=== PATIENT | male | born 1935 | race Caucasian/White ===

== ENCOUNTER → 2017-11-04 08:16 | Outpatient (CLI) | payer MEDICARE, OTHER, SELFPAY ==
[2017-11-04 08:59] LABS: Hemoglobin A1C% w Est Avg Glu 6.2 % (4.0-6.0)
[2017-11-04 09:00] LABS: Add Manual Diff / Slide Review NO; Basophils Percent Auto 2.8 % (0-2); Eosinophils Percent Auto 3.7 % (2-4); Hematocrit 42.1 % (41-53); Hemoglobin 14.2 g/dL (13.5-17.5); Lymphocytes Percent Auto 33.3 % (25-40); Mean Corpuscular HGB Conc 33.6 % (30-36); Mean Corpuscular Volume 89.2 fL (80-100); Monocytes Percent Auto 11.7 % (3-14); Neutrophils Absolute Auto 2000 /uL (3000-5900); Neutrophils Percent Auto 48.5 % (50-75); Platelet Count 193 X10^3/uL (150-400); Red Blood Cell Count 4.72 X10^6/uL (4.5-5.9); White Blood Cell Count 4.2 X10^3/uL (4.5-11.0)
[2017-11-04 09:09] LABS: Alanine Aminotransferase 34 IU/L (21-72); Albumin 4.4 g/dL (3.5-5.0); Albumin Globulin Ratio 1.3 (1.0-2.8); Alkaline Phosphatase 59 U/L (38-126); Aspartate Aminotransferase 35 IU/L (17-59); Bilirubin Total 0.5 mg/dL (0.2-1.3); Blood Urea Nitrogen 22 mg/dL (9-20); Calcium 9.3 mg/dL (8.4-10.2); Carbon Dioxide 27 mmol/L (22-32); Chloride 102 mmol/L (98-107); Cholesterol 133 mg/dL (140-199); Estimated Glomerular Filt Rate > 60.0 mL/min (>60); Globulin 3.4 g/dL (1.7-4.1); Glucose 120 mg/dL (80-110); HDL Cholesterol 62 mg/dL (40-60); HEMOLYSIS < 15 (0-50); LDL Cholesterol Calculated 54 mg/dL (<100); Potassium 4.2 mmol/L (3.4-5.1); Sodium 141 mmol/L (137-145); Total Protein 7.8 g/dL (6.3-8.2); Triglycerides 87 mg/dL (35-150)
== END ==
PROVIDERS: PCP Internal Medicine; Visit Provider Internal Medicine
DX: I48.91 Unspecified atrial fibrillation (principal); E78.00 Pure hypercholesterolemia, unspecified; I10 Essential (primary) hypertension; R73.01 Impaired fasting glucose
CPT/HCPCS: 36415; 80053; 80061; 83036; 85025

== ENCOUNTER 2018-01-23 10:30 | Outpatient (RCR) | payer MEDICARE, OTHER, SELFPAY ==
--- NOTE | 2017-09-20 13:17 | PT.OIE ---
Current Diagnoses Primary osteoarthritis, left shoulder (09/19/17) Muscle wasting and atrophy, not elsewhere classified, left shoulder (09/19/17) Other reduced mobility (09/19/17) Past Medical History (Last Updated 09/20/17 @ 13:13 by Georgie Mccarty, PT) Back pain (Acute) Falls (Acute) Hearing decreased (Acute) Neuropathy (Acute) Past Surgical History (Last Updated 09/20/17 @ 13:12 by Georgie Mccarty, PT) S/P shoulder replacement (Acute) Physical Therapy Initial Evaluation PT-OP-A Visit Information Start: 09/19/17 15:44 Freq: Status: Active Protocol: Activity Type Activity Date Activity User E-Sign Co-Sign Detail Recorded Client Recorded Date Recorded By Document 09/19/17 10:40 LRN [id number] 09/19/17 16:15 LRN 09/19/17 10:40 Out-Patient Physical Therapy Visit Information [Visit Information] -Visit Type Treatment Note -Visit Start Time 10:37 -Visit Stop Time 11:25 -Total Visit Minutes 58 -Visit Number 1 -Number of WOOL PULLER Visits 0 [Evaluation Information] -Evaluation Date 09/19/17 PT-OP-C Subjective Start: 09/19/17 15:44 Freq: Status: Active Protocol: Activity Type Activity Date Activity User E-Sign Co-Sign Detail Recorded Client Recorded Date Recorded By Document 09/19/17 10:40 LRN [id number] 09/20/17 10:23 LRN 09/19/17 10:40 OP-PT Subjective [Patient Comments] -Patient Comments Doesn't really have pain, 4/10 with movement 8/10. at rest. Pain with movement Patient Questionnaires [Quick Dash- Upper Extremity] -Quick Dash UE Score 79.54 -Quick Dash UE Impairment 80 to 99% Impaired (Score 80-99) OP-PT Pain Assessment [Pain Assessment Grid] -Paper Pain Assessment Grid Completed Yes [Location] Left Shoulder -Intensity 4 -Scale Used Numeric (1 - 10 ) -Pain Aggravating Factors Changing Position -Patient Stated Pain Goal Regain use of arm PT-OP-J Posture/Palpation/Skin Start: 09/19/17 15:44 Freq: Status: Active Protocol: Activity Type Activity Date Activity User E-Sign Co-Sign Detail Recorded Client Recorded Date Recorded By Document 09/20/17 10:24 LRN [id number] 09/20/17 10:28 LRN 09/20/17 10:24 Posture Evaluation [Position] Sitting -Evaluation View Anterior -Head/C-Spine Posture Neutral Position -Scapula Posture (L) Depressed [Comments] -Posture Comments Sitting: Pt sits slumped with straightened thoracic spine. L scapula is tightly bound to the ribcage. There is a moderate Dowager's hump. Moderate forward head. Standing: hips flexed ~10 deg' s. Palpation Assessment [Location] Three -Palpation Location Posterior L shoulder -Palpation Findings Tenderness Two -Palpation Location Upper shoulder -Palpation Findings Muscle Guarding One -Palpation Location L side neck -Palpation Findings Muscle Guarding Skin Assessment [Incisional Assessment] -Incision Appearance/Comments Unable to assess. Scar covered with waterproof bandage ( Aquacil). PT-OP-K Range of Motion Start: 09/19/17 15:44 Freq: Status: Active Protocol: Activity Type Activity Date Activity User E-Sign Co-Sign Detail Recorded Client Recorded Date Recorded By Document 09/19/17 10:40 LRN [id number] 09/20/17 12:21 LRN 09/19/17 10:40 Cervical Spine Range of Motion [Cervical Spine] Active -Testing Position Sitting -Comments WFL's. Shoulder Goniometric Range of Motion [Shoulder] Measured in Degrees Left -Testing Position Supine -Flexion 20 [ROM Limitations] -Comments Shoulder PROM: ER at 0 deg's AB: Lacking 10 deg's left. Elbow/Forearm Range of Motion [Elbow/Forearm] Measured in Degrees Right Active -Elbow/Forearm ROM WFL Yes -ROM Testing Position Supine -Elbow Flex AROM (degrees) 147 -Elbow Ext AROM (degrees) 0 Left Active -ROM Testing Position Supine -Elbow Flex AROM (degrees) 147 -Elbow Ext AROM (degrees) Lacks 10 deg's PT-OP-Q Treatments Start: 09/19/17 15:44 Freq: Status: Active Protocol: Activity Type Activity Date Activity User E-Sign Co-Sign Detail Recorded Client Recorded Date Recorded By Document 09/19/17 10:40 LRN [id number] 09/20/17 12:21 LRN 09/19/17 10:40 Therapeutic Exercises [Supine Exercises] 2 -Supine Exercise Name Passive L shoulder ER with 0 deg's AB -Side left -Reps/Minutes 4 min -Comments Good tolerance, pt is stoic 1 -Supine Exercise Name Passive L shoulder flex -Side left -Reps/Minutes 4 min -Comments Good tolerance, pt is stoic [Sitting Exercises] 1 -Sitting Exercise Name Wrist/Hand AROM -Side left -Reps/Minutes 5 reps each Self-Care/Home Management Treatment [Education] -Patient Education Joint Protection -Caregiver Education PROM for shoulder flexion and ER (at 0 deg's AB) with proper hand hold, positioning of pt and observation of pt tolerance. PT-OP-R Modalities Start: 09/19/17 15:44 Freq: Status: Active Protocol: Activity Type Activity Date Activity User E-Sign Co-Sign Detail Recorded Client Recorded Date Recorded By Document 09/19/17 10:40 LRN [id number] 09/20/17 12:21 LRN 09/19/17 10:40 Hot Pack/Cold Pack [Treatment] Cold Pack -Location L shoulder -Patient Position Supine -Treatment Duration (minutes) 10 -Patient Tolerance Good PT-OP-T Assessment and Plan Start: 09/19/17 15:44 Freq: Status: Active Protocol: Activity Type Activity Date Activity User E-Sign Co-Sign Detail Recorded Client Recorded Date Recorded By Document 09/19/17 10:40 LRN [id number] 09/19/17 15:59 LRN 09/19/17 10:40 Physical Therapy Assessment [Rehab Potential] -Rehabilitation Potential Excellent [Evaluation Complexity] -Number of Personal Factors/ 1-2 Comorbidities -Number of Body Systems Impaired 3 -Clinical Presentation at Evaluation Evolving [Impairments] -Impairments Activity Tolerance Pain Posture ROM Soft Tissue Mobility Strength -Other Impairments S/P surgery in Acute stage of healing. [Other Concerns] -Age Related Concerns Needs assist with ex's, hearing difficulty, pictures with exercises. -Barriers to Rehabilitation 65+ Age [Goals] Eight -Impairment Lacks approriate HEP -Casting And Locker Room Servicer Goal (LTG) Pt will be independent in a HEP -LTG Duration 12 weeks Six -Impairment Decreased function -Group Home Goal (LTG) UE QuickDASH Score no more than 20% impairment. -LTG Duration 12 weeks. Five -Impairment Decreased functional use of L shoulder -Casting And Locker Room Servicer Goal (LTG) Per protocol: Start scapulothoracic rhythmic strengthening/ stabilization & alternating isometrics in supine for pt to begin use of hand for feeding and light activities of ADL's (dressing , washing). Four -Impairment No ROM of L shoulder IR -Group Home Goal (LTG) Per protocol: Initiate PROM of IR for L shoulder not to exceed 50 deg' s. Start ER/IR isometrics ( submaximal & painfree) -LTG Duration Start in 6 weeks. Three -Impairment Decreased L shoulder strength -Short Term Goal (STG) Per protocol: Pt able to tolerate submaximal pain -free Deltoid isometrics in scapular plane (no ext) with HEP -STG Duration 3 weeks Two -Impairment Decreased L shoulder AROM -Short Term Goal (STG) Goals to be set once pt is cleared for AROM. -STG Duration Set in ~6 weeks One -Impairment Decreased L shoulder PROM. Pt to be in sling 6-8 wks. -Short Term Goal (STG) Per protocol: FF 90 deg's, ER 20 deg's, NO IR. -STG Duration 3 weeks s/p surgery on 09/12 -Casting And Locker Room Servicer Goal (LTG) Per protocol: FF 120 deg's, ER to tolerance , respecting soft tissue contraints -LTG Duration 6 weeks s/p surgery on 09/12 [Assessment Summary] -Assessment Pt is 7 days post operative L total shoulder arthroplasty ( TSA). His condition is consistent with acute symptoms of post surgical L shoulder TSA with decreased PROM, restricted AAROM per protocol until 6-8 weeks post op, decreased UE functional strength with mild increased swelling in the hand, decreased soft tissue mobility and increased muscle tone due to muscle guarding, and decreased function with movement restrictions. The pt's spouse is very supportive and willing to assist the pt with PROM ex's at home; therefore we will see the pt once a week for advancement of his HEP and increase to 2x /week one the pt is progressed to AAROM ex's. Aquatic therapy will be appropriate for the pt once his incision has well healed . Physical Therapy Plan [Frequency and Duration] -Frequency of Treatment 2x/Week -Duration of Treatment 12 Weeks -Plan of Care Start Date 09/19/17 -Plan of Care End Date 12/12/17 [Therapeutic Interventions] -Therapeutic Interventions Aquatic Therapy Home Exercise Program Manual Therapy Neuromuscular Re-education Patient/ Caregiver Education Self-Care/Home Management Soft Tissue Mobilization Taping Therapeutic Activities Therapeutic Exercises -Modalities Cold Pack/Ice Massage Hot Packs [Next Visit Focus/Plan] -Next Visit Plan Start MH to L shoulder with Elbow/wrist/ hand AROM. Training of spouse for L shoulder ROM and transfer assist. PROM L shoulder . Review Codman's . HEP: Neck ROM and Scapular stabilizers as tolerated. Provider Signature Date
--- NOTE | 2017-09-20 13:18 | PT.OPPOC ---
Current Diagnoses Primary osteoarthritis, left shoulder (09/19/17) Muscle wasting and atrophy, not elsewhere classified, left shoulder (09/19/17) Other reduced mobility (09/19/17) Provider Visit Care Team Role Provider Type Chemo Lindquist MD Primary Care Provider Physician Specialty: Internal Medicine Address: [address] [place] [address], [id number] Email: Cash Andujar PA-C Attending Provider Advanced Practioner Clinician Specialty: Orthopedic Surgery Address: [address] [place] [address], [phone] Email: [email or web address] Plan Of Care PT-OP-T Assessment and Plan Start: 09/19/17 15:44 Freq: Status: Active Protocol: Document 09/19/17 10:40 LRN (Rec: 09/19/17 15:59 LRN [id number]) Physical Therapy Assessment Rehab Potential Rehabilitation Potential Excellent Evaluation Complexity Number of Personal Factors/Comorbidities 1-2 Number of Body Systems Impaired 3 Clinical Presentation at Evaluation Evolving Impairments Impairments Activity Tolerance Pain Posture ROM Soft Tissue Mobility Strength Other Impairments S/P surgery in Acute stage of healing. Other Concerns Age Related Concerns Needs assist with ex's, hearing difficulty, pictures with exercises. Barriers to Rehabilitation 65+ Age Goals Eight Impairment Lacks approriate HEP Prison Goal (LTG) Pt will be independent in a HEP LTG Duration 12 weeks Six Impairment Decreased function Commodity Management Specialist Goal (LTG) UE QuickDASH Score no more than 20% impairment. LTG Duration 12 weeks. Five Impairment Decreased functional use of L shoulder Prison Goal (LTG) Per protocol: Start scapulothoracic rhythmic strengthening/stabilization & alternating isometrics in supine for pt to begin use of hand for feeding and light activities of ADL's (dressing, washing). Four Impairment No ROM of L shoulder IR Prison Goal (LTG) Per protocol: Initiate PROM of IR for L shoulder not to exceed 50 deg' s. Start ER/IR isometrics ( submaximal & painfree) LTG Duration Start in 6 weeks. Three Impairment Decreased L shoulder strength Short Term Goal (STG) Per protocol: Pt able to tolerate submaximal pain-free Deltoid isometrics in scapular plane (no ext) with HEP STG Duration 3 weeks Two Impairment Decreased L shoulder AROM Short Term Goal (STG) Goals to be set once pt is cleared for AROM. STG Duration Set in ~6 weeks One Impairment Decreased L shoulder PROM. Pt to be in sling 6-8 wks. Short Term Goal (STG) Per protocol: FF 90 deg's, ER 20 deg's, NO IR. STG Duration 3 weeks s/p surgery on 09/12/17 Commodity Management Specialist Goal (LTG) Per protocol: FF 120 deg's, ER to tolerance, respecting soft tissue contraints LTG Duration 6 weeks s/p surgery on 09/12/17 Assessment Summary Assessment Pt is 7 days post operative L total shoulder arthroplasty ( TSA). His condition is consistent with acute symptoms of post surgical L shoulder TSA with decreased PROM, restricted AAROM per protocol until 6-8 weeks post op, decreased UE functional strength with mild increased swelling in the hand, decreased soft tissue mobility and increased muscle tone due to muscle guarding, and decreased function with movement restrictions. The pt 's spouse is very supportive and willing to assist the pt with PROM ex's at home; therefore we will see the pt once a week for advancement of his HEP and increase to 2x/ week one the pt is progressed to AAROM ex's. Aquatic therapy will be appropriate for the pt once his incision has well healed. Physical Therapy Plan Frequency and Duration Frequency of Treatment 2x/Week Duration of Treatment 12 Weeks Plan of Care Start Date 09/19/17 Plan of Care End Date 12/12/17 Therapeutic Interventions Therapeutic Interventions Aquatic Therapy Home Exercise Program Manual Therapy Neuromuscular Re-education Patient/Caregiver Education Self-Care/Home Management Soft Tissue Mobilization Taping Therapeutic Activities Therapeutic Exercises Modalities Cold Pack/Ice Massage Hot Packs Next Visit Focus/Plan Next Visit Plan Start MH to L shoulder with Elbow/wrist/hand AROM. Training of spouse for L shoulder ROM and transfer assist. PROM L shoulder. Review Codman's. HEP: Neck ROM and Scapular stabilizers as tolerated. Plan of Care Dates Plan of Care Start Date 09/19/17 Plan of Care End Date 12/12/17 Please Sign and Return: I have reviewed this Plan of Care and certify that the skilled therapy services above are required to meet the patient???s needs. Physician Signature Date Printed Name and Credentials
--- NOTE | 2017-09-22 14:34 | PT.OTN ---
Current Diagnoses Primary osteoarthritis, left shoulder (09/22/17) Physical Therapy Treatment Note PT-OP-A Visit Information Start: 09/19/17 15:44 Freq: Status: Active Protocol: Document 09/22/17 12:56 LRN (Rec: 09/22/17 14:34 LRN [id number]) Out-Patient Physical Therapy Visit Information Visit Information Visit Type Treatment Note Visit Note 06/25 Visit Start Time 12:50 Visit Stop Time 14:15 Total Visit Minutes 85 Visit Number 2 Number of MANAGER GAMES Visits 0 Evaluation Information Evaluation Date 09/19/17 PT-OP-C Subjective Start: 09/19/17 15:44 Freq: Status: Active Protocol: Document 09/22/17 12:56 LRN (Rec: 09/22/17 14:34 LRN [id number]) OP-PT Subjective Patient Comments Patient Comments Has been doing HEP 2x/day. Only pain is in the front of the shoulder. PT-OP-J Posture/Palpation/Skin Start: 09/19/17 15:44 Freq: Status: Active Protocol: Document 09/19/17 10:40 LRN (Rec: 09/20/17 10:28 LRN [id number]) Posture Evaluation Position Sitting Evaluation View Anterior Head/C-Spine Posture Neutral Position Scapula Posture (L) Depressed Comments Posture Comments Sitting: Pt sits slumped with straightened thoracic spine. L scapula is tightly bound to the ribcage. There is a moderate Dowager's hump. Moderate forward head. Standing: hips flexed ~10 deg' s. Palpation Assessment Location Three Palpation Location Posterior L shoulder Palpation Findings Tenderness Two Palpation Location Upper shoulder Palpation Findings Muscle Guarding One Palpation Location L side neck Palpation Findings Muscle Guarding Skin Assessment Incisional Assessment Incision Appearance/Comments Unable to assess. Scar covered with waterproof bandage (Aquacil). PT-OP-K Range of Motion Start: 09/19/17 15:44 Freq: Status: Active Protocol: Document 09/22/17 12:56 LRN (Rec: 09/22/17 14:34 LRN [id number]) Shoulder Goniometric Range of Motion Shoulder Measured in Degrees Left Testing Position Supine Flexion 40 Shoulder ROM Limitations Comments Post Treatment: Shoulder PROM: ER at 0 deg's AB: in Neutral Elbow/Forearm Range of Motion Elbow/Forearm Measured in Degrees Left Active ROM Testing Position Supine Elbow Ext AROM (degrees) Lacks 5 deg's PT-OP-Q Treatments Start: 09/19/17 15:44 Freq: Status: Active Protocol: Document 09/22/17 12:56 LRN (Rec: 09/22/17 14:34 LRN [id number]) Therapeutic Exercises Supine Exercises 7 Supine Exercise Name Passive Cervical R Sidebend Stretch Reps/Minutes 6 Comments 10 sec holds 6 Supine Exercise Name Passive Cervical R Rotation Stretch Reps/Minutes 6 Comments 10 sec hold 5 Supine Exercise Name SUB-MAXIMAL & PAINFREE Deltoid isometrics Side left Resistance Manual Reps/Minutes 5 each Comments Hold 5 sec's 4 Supine Exercise Name Active Elbow flexion Side left Reps/Minutes 10 reps 3 Supine Exercise Name Elbow Extension stretch Side left Reps/Minutes 10 reps Comments Palm down, neutral, forward 2 Supine Exercise Name Passive L shoulder ER with 0 deg's AB Side left Reps/Minutes 20 reps Comments Good tolerance, pt is stoic 1 Supine Exercise Name Passive L shoulder flex Side left Reps/Minutes 20 reps Comments Good tolerance, pt is stoic Sitting Exercises 1 Sitting Exercise Name Wrist/Hand AROM Side left Reps/Minutes 10-15 reps each Self-Care/Home Management Treatment Education Patient Education Home Exercise Program Caregiver Education Reviewed and issued handout for L shoulder Isometric for Submaximal and painfree Deltoid strengthening. PT-OP-R Modalities Start: 09/19/17 15:44 Freq: Status: Active Protocol: Document 09/22/17 12:56 LRN (Rec: 09/22/17 14:34 LRN [id number]) Hot Pack/Cold Pack Treatment Hot Pack Location L shoulder & neck Patient Position Supine Treatment Duration (minutes) 20 Comments MHP during L shoulder ex's. Cold Pack Location L shoulder Patient Position Supine Treatment Duration (minutes) 10 Patient Tolerance Good PT-OP-T Assessment and Plan Start: 09/19/17 15:44 Freq: Status: Active Protocol: Document 09/22/17 12:56 LRN (Rec: 09/22/17 14:34 LRN [id number]) Physical Therapy Assessment Impairments Impairments Activity Tolerance Pain Posture ROM Soft Tissue Mobility Strength Other Impairments S/P surgery in Acute stage of healing. Progress Towards Goals Progress Towards Goals Progressing Toward Goals Progress Comments Improved L shoulder passive flex - 40 deg's, ER - neutral. Assessment Summary Assessment Pt is 10 days post operative L total shoulder arthroplasty ( TSA). He has good tolerance to ex and is quite stoic. He has increased L shoulder PROM, restricted AAROM per protocol until 6-8 weeks post op, decreased UE functional strength with mild increased swelling in the hand, decreased soft tissue mobility and increased muscle tone due to muscle guarding, and decreased function with movement restrictions. The pt 's spouse has been very supportive and willing to assist the pt with PROM ex's at home and appears to have be doing quite well; therefore we will see the pt once a week for advancement of his HEP unless otherwise directed by his physician in tomorrow's follow up visit. Increase to 2x/week once the pt is progressed to AAROM ex's. Aquatic therapy will be appropriate for the pt once his incision has well healed. HEP document made while pt was on cryotherapy with extra time taken to make program. Physical Therapy Plan Frequency and Duration Frequency of Treatment 2x/Week Duration of Treatment 12 Weeks Plan of Care Start Date 09/19/17 Plan of Care End Date 12/12/17 Therapeutic Interventions Therapeutic Interventions Aquatic Therapy Home Exercise Program Manual Therapy Neuromuscular Re-education Patient/Caregiver Education Self-Care/Home Management Soft Tissue Mobilization Taping Therapeutic Activities Therapeutic Exercises Modalities Cold Pack/Ice Massage Hot Packs Next Visit Focus/Plan Next Visit Plan Discuss outcome of pt MD visit 09/23/17. during pt's PROM ex's & Deltoid isometrics; remeasure for progress. Initiate submaximal scapular retractor ex's, HEP if appropriate. Elbow/wrist/hand AROM
--- NOTE | 2017-09-27 16:33 | PT.OTN ---
Current Diagnoses Primary osteoarthritis, left shoulder (09/27/17) Physical Therapy Treatment Note PT-OP-A Visit Information Start: 09/19/17 15:44 Freq: Status: Active Protocol: Document 09/27/17 08:26 LRN (Rec: 09/27/17 09:29 LRN [id number]) Out-Patient Physical Therapy Visit Information Visit Information Visit Type Treatment Note Visit Note 07/23 Visit Start Time 20:50 Visit Stop Time 09:10 Total Visit Minutes 50 Visit Number 3 Number of INSPECTOR FIBROUS WALLBOARD Visits 0 Evaluation Information Evaluation Date 09/19/17 PT-OP-C Subjective Start: 09/19/17 15:44 Freq: Status: Active Protocol: Document 09/27/17 08:26 LRN (Rec: 09/27/17 09:29 LRN [id number]) OP-PT Subjective Patient Comments Patient Comments Saw 4 days ago (Tuesday). States the bandage was removed and the physician was pleased . Notes on referral. Pt feels pretty good. Pain rated 1/10. PT-OP-J Posture/Palpation/Skin Start: 09/19/17 15:44 Freq: Status: Active Protocol: Document 09/19/17 10:40 LRN (Rec: 09/20/17 10:28 LRN [id number]) Posture Evaluation Position Sitting Evaluation View Anterior Head/C-Spine Posture Neutral Position Scapula Posture (L) Depressed Comments Posture Comments Sitting: Pt sits slumped with straightened thoracic spine. L scapula is tightly bound to the ribcage. There is a moderate Dowager's hump. Moderate forward head. Standing: hips flexed ~10 deg' s. Palpation Assessment Location Three Palpation Location Posterior L shoulder Palpation Findings Tenderness Two Palpation Location Upper shoulder Palpation Findings Muscle Guarding One Palpation Location L side neck Palpation Findings Muscle Guarding Skin Assessment Incisional Assessment Incision Appearance/Comments Unable to assess. Scar covered with waterproof bandage (Aquacil). PT-OP-K Range of Motion Start: 09/19/17 15:44 Freq: Status: Active Protocol: Document 09/27/17 08:26 LRN (Rec: 09/27/17 12:40 LRN [id number]) Shoulder Goniometric Range of Motion Shoulder Measured in Degrees Left Testing Position Supine Flexion 90 Shoulder ROM Limitations Comments Post Treatment: L shoulder PROM: Flexion 90 deg's, ER at 0 deg's AB - Neutral. PT-OP-Q Treatments Start: 09/19/17 15:44 Freq: Status: Active Protocol: Document 09/27/17 08:26 LRN (Rec: 09/27/17 09:29 LRN [id number]) Therapeutic Exercises Supine Exercises 8 Supine Exercise Name Isometric Scapular retraction Side left Reps/Minutes 10 7 Supine Exercise Name Passive Cervical R Sidebend Stretch Reps/Minutes 6 Comments 10 sec holds 6 Supine Exercise Name Passive Cervical R Rotation Stretch Reps/Minutes 6 Comments 10 sec hold 5 Supine Exercise Name SUB-MAXIMAL & PAINFREE Deltoid ext, AB isometrics Side left Resistance Manual Reps/Minutes 5 each Comments Hold 5 sec's 4 Supine Exercise Name Active Elbow flexion Side left Reps/Minutes 10 reps 3 Supine Exercise Name Elbow Extension stretch Side left Reps/Minutes 10 reps Comments Palm down, neutral, forward 2 Supine Exercise Name Passive L shoulder ER to 0 deg 's with 0 deg's AB Side left Reps/Minutes 20 reps Comments Good tolerance, pt is stoic 1 Supine Exercise Name Passive L shoulder flex to 90 deg's Side left Reps/Minutes 20 reps Comments Good tolerance, pt is stoic Self-Care/Home Management Treatment Education Patient Education Joint Protection Caregiver Education I/S pt and spouse in ROM restrictions by MD of flex 90 deg's, AB & ER 0 deg's. Activities Self-Care/Home Management Activities I/S spouse in method to monitor pt's submaximal Deltoid isometric contradctions. PT-OP-R Modalities Start: 09/19/17 15:44 Freq: Status: Active Protocol: Document 09/27/17 08:26 LRN (Rec: 09/27/17 09:29 LR [id number]) Hot Pack/Cold Pack Treatment Hot Pack Location L shoulder & neck Patient Position Supine Treatment Duration (minutes) 20 Comments MHP during L shoulder ex's. Cold Pack Location L shoulder Patient Position Supine Treatment Duration (minutes) 10 Patient Tolerance Good PT-OP-T Assessment and Plan Start: 09/19/17 15:44 Freq: Status: Active Protocol: Document 09/27/17 08:26 LRN (Rec: 09/27/17 09:29 [facility] [id number]) Physical Therapy Assessment Impairments Impairments Activity Tolerance Pain Posture ROM Soft Tissue Mobility Strength Other Impairments S/P surgery in Acute stage of healing. Progress Towards Goals Progress Towards Goals Progressing Toward Goals Progress Comments L shoulder PROM (end of treatment): flex - 90 deg's, ER - neutral. Assessment Summary Assessment Pt is 15 days post operative L total shoulder arthroplasty. He has met the ROM goals by MD (90 deg's flex, 0 deg's ER) . Pt probably doesn't need therapy 2x/week at this time, but MD is requesting therapy 2x/week. Physical Therapy Plan Frequency and Duration Frequency of Treatment 2x/Week Duration of Treatment 11 Weeks Plan of Care Start Date 09/19/17 Plan of Care End Date 12/12/17 Therapeutic Interventions Therapeutic Interventions Aquatic Therapy Home Exercise Program Manual Therapy Neuromuscular Re-education Patient/Caregiver Education Self-Care/Home Management Soft Tissue Mobilization Taping Therapeutic Activities Therapeutic Exercises Modalities Cold Pack/Ice Massage Hot Packs Next Visit Focus/Plan Next Visit Plan Get clarification number of visits per week per MD request of 2x/week. Continue with general conditioning ex/s with Biodex and ROM L shoulder.
--- NOTE | 2017-10-04 14:50 | PT.OTN ---
Current Diagnoses Primary osteoarthritis, left shoulder (10/04/17) Physical Therapy Treatment Note PT-OP-A Visit Information Start: 09/19/17 15:44 Freq: Status: Active Protocol: Document 10/04/17 13:33 LRN (Rec: 10/04/17 14:33 LRN [id number]) Out-Patient Physical Therapy Visit Information Visit Information Visit Type Treatment Note Visit Note 08/23 Visit Start Time 13:33 Visit Stop Time 14:25 Total Visit Minutes 52 Visit Number 4 Number of RATE CLERK PASSENGER Visits 0 Evaluation Information Evaluation Date 09/19/17 PT-OP-C Subjective Start: 09/19/17 15:44 Freq: Status: Active Protocol: Document 10/04/17 13:33 LRN (Rec: 10/04/17 14:33 LRN [id number]) OP-PT Subjective Patient Comments Patient Comments Everything is going good. Has no pain complaints. Notes clicking in the shoulder with lifting of the arm motion. PT-OP-J Posture/Palpation/Skin Start: 09/19/17 15:44 Freq: Status: Active Protocol: Document 09/19/17 10:40 LRN (Rec: 09/20/17 10:28 LRN [id number]) Posture Evaluation Position Sitting Evaluation View Anterior Head/C-Spine Posture Neutral Position Scapula Posture (L) Depressed Comments Posture Comments Sitting: Pt sits slumped with straightened thoracic spine. L scapula is tightly bound to the ribcage. There is a moderate Dowager's hump. Moderate forward head. Standing: hips flexed ~10 deg' s. Palpation Assessment Location Three Palpation Location Posterior L shoulder Palpation Findings Tenderness Two Palpation Location Upper shoulder Palpation Findings Muscle Guarding One Palpation Location L side neck Palpation Findings Muscle Guarding Skin Assessment Incisional Assessment Incision Appearance/Comments Unable to assess. Scar covered with waterproof bandage (Aquacil). PT-OP-K Range of Motion Start: 09/19/17 15:44 Freq: Status: Active Protocol: Document 10/04/17 13:33 LRN (Rec: 10/04/17 14:33 LRN [id number]) Shoulder Goniometric Range of Motion Shoulder Measured in Degrees Left Testing Position Supine Shoulder ROM Limitations Shoulder ROM Limitations Pain Comments Post Treatment: Shoulder PROM: ER at 0 deg's AB: is 20 deg's. Flex is 98 deg's PT-OP-Q Treatments Start: 09/19/17 15:44 Freq: Status: Active Protocol: Document 10/04/17 13:33 LRN (Rec: 10/04/17 14:33 LRN [id number]) Therapeutic Exercises Supine Exercises 8 Supine Exercise Name Isometric Scapular retraction/ depression. Side left Reps/Minutes 10 6 Supine Exercise Name Active Cervical R Rotation Stretch Reps/Minutes 10 Comments 10 sec hold 5 Supine Exercise Name SUB-MAXIMAL & PAINFREE Deltoid ext, AB isometrics Side left Resistance Manual Reps/Minutes 5 each Comments Hold 5 sec's 4 Supine Exercise Name Active Elbow flexion Side left Resistance 1# Reps/Minutes 10x3 2 Supine Exercise Name Passive L shoulder ER to 20 deg's with 0 deg's AB Side left Reps/Minutes 20 reps Comments Good tolerance, pt is stoic 1 Supine Exercise Name Passive L shoulder flex up to 98 deg's. Max 120 deg's. Side left Reps/Minutes 20 reps Comments Good tolerance, pt is stoic Sitting Exercises 1 Sitting Exercise Name Wrist/Hand AROM Side left Resistance 1# Reps/Minutes 10x3 Self-Care/Home Management Treatment Education Patient Education Home Exercise Program Activities Self-Care/Home Management Activities Issued and reviewed HEP of PROM L shoulder: Flex 0-120 deg's limit, ER as tolerated limit. NO EXT., and Scapular retraction. PT-OP-R Modalities Start: 09/19/17 15:44 Freq: Status: Active Protocol: Document 09/27/17 08:26 LRN (Rec: 09/27/17 09:29 LRN [id number]) Hot Pack/Cold Pack Treatment Hot Pack Location L shoulder & neck Patient Position Supine Treatment Duration (minutes) 20 Comments MHP during L shoulder ex's. Cold Pack Location L shoulder Patient Position Supine Treatment Duration (minutes) 10 Patient Tolerance Good PT-OP-T Assessment and Plan Start: 09/19/17 15:44 Freq: Status: Active Protocol: Document 10/04/17 13:33 LRN (Rec: 10/04/17 14:33 LRN [id number]) Physical Therapy Assessment Progress Towards Goals Progress Towards Goals Progressing Toward Goals Progress Comments L shoulder PROM post treatment : flex 98 deg's, ER 20 deg's. Assessment Summary Assessment Pt is ~ 3wks post operative L TSA. Pt is having very little discomfort. ROM is improving . Pt is anxious to get moving and using his L arm. Physical Therapy Plan Frequency and Duration Frequency of Treatment 2x/Week Duration of Treatment 11 Weeks Plan of Care Start Date 09/19/17 Plan of Care End Date 12/12/17 Next Visit Focus/Plan Next Visit Plan Received TSA protocol as in clinic. Pt has progressed to 3-6 weeks of protocol. PROM goals: FF 120 deg's, ER to tolerance. Progress periscapular isometrics and Deltoid isometrics. Next progression in protocol is at 6 wks post op. Please Sign and Return: I have reviewed this Plan of Care and certify that the skilled therapy services above are required to meet the patient???s needs. Physician Signature Date Printed Name and Credentials Clinical Instructor Signature Printed Name and Credentials
--- NOTE | 2017-10-11 16:09 | PT.OTN ---
Current Diagnoses Primary osteoarthritis, left shoulder (10/11/17) Physical Therapy Treatment Note PT-OP-A Visit Information Start: 09/19/17 15:44 Freq: Status: Active Protocol: Document 10/11/17 10:34 LRN (Rec: 10/11/17 11:19 LRN [id number]) Out-Patient Physical Therapy Visit Information Visit Information Visit Type Treatment Note Visit Note 09/22 Visit Start Time 10:34 Visit Stop Time 11:25 Total Visit Minutes 51 Visit Number 5 Number of ALIGNER BARREL AND RECEIVER Visits 0 Evaluation Information Evaluation Date 09/19/17 PT-OP-C Subjective Start: 09/19/17 15:44 Freq: Status: Active Protocol: Document 10/11/17 10:34 LRN (Rec: 10/11/17 11:19 LRN [id number]) OP-PT Subjective Patient Comments Patient Comments States ex's are going for overhead (flexion), not too good for rotating out (ER). PT-OP-J Posture/Palpation/Skin Start: 09/19/17 15:44 Freq: Status: Active Protocol: Document 09/19/17 10:40 LRN (Rec: 09/20/17 10:28 LRN [id number]) Posture Evaluation Position Sitting Evaluation View Anterior Head/C-Spine Posture Neutral Position Scapula Posture (L) Depressed Comments Posture Comments Sitting: Pt sits slumped with straightened thoracic spine. L scapula is tightly bound to the ribcage. There is a moderate Dowager's hump. Moderate forward head. Standing: hips flexed ~10 deg' s. Palpation Assessment Location Three Palpation Location Posterior L shoulder Palpation Findings Tenderness Two Palpation Location Upper shoulder Palpation Findings Muscle Guarding One Palpation Location L side neck Palpation Findings Muscle Guarding Skin Assessment Incisional Assessment Incision Appearance/Comments Unable to assess. Scar covered with waterproof bandage (Aquacil). PT-OP-K Range of Motion Start: 09/19/17 15:44 Freq: Status: Active Protocol: Document 10/11/17 10:34 LRN (Rec: 10/11/17 11:19 LRN [id number]) Shoulder Goniometric Range of Motion Shoulder Measured in Degrees Left Testing Position Supine Flexion 118 Shoulder ROM Limitations Shoulder ROM Limitations Pain Comments Post treatment: Shoulder ER PROM: @ 0 deg's AB - 28 deg's PT-OP-Q Treatments Start: 09/19/17 15:44 Freq: Status: Active Protocol: Document 10/11/17 10:34 LRN (Rec: 10/11/17 11:19 LRN [id number]) Therapeutic Exercises Supine Exercises 8 Supine Exercise Name Isometric Scapular retraction/ depression. Side left Reps/Minutes 10 5 Supine Exercise Name SUB-MAXIMAL & PAINFREE Deltoid ext, AB isometrics Side left Resistance Manual Reps/Minutes 5 each Comments Hold 5 sec's 4 Supine Exercise Name Active Elbow flexion Side left Resistance 1# Reps/Minutes 10x3 2 Supine Exercise Name Passive L shoulder ER to 20 deg's with 0 deg's AB Side left Reps/Minutes 10' Comments Good tolerance, pt is stoic 1 Supine Exercise Name Passive L shoulder flex up to 98 deg's. Max 120 deg's. Side left Reps/Minutes 10' Comments Good tolerance, pt is stoic Self-Care/Home Management Treatment Activities Self-Care/Home Management Activities Reviewed PROM L shoulder limitations. Flex 0-120 deg's limit, ER as tolerated limit. NO EXT, and Scapular retraction. PT-OP-R Modalities Start: 09/19/17 15:44 Freq: Status: Active Protocol: Document 10/11/17 10:34 LRN (Rec: 10/11/17 11:19 LRN [id number]) Hot Pack/Cold Pack Treatment Hot Pack Location L shoulder & back Patient Position Supine Treatment Duration (minutes) 10 Comments MHP used during L shoulder ex' s. Cold Pack Location L shoulder Patient Position Supine Treatment Duration (minutes) 10 Patient Tolerance Good Comments Cold pack at end of treatment. PT-OP-T Assessment and Plan Start: 09/19/17 15:44 Freq: Status: Active Protocol: Document 10/11/17 10:34 LRN (Rec: 10/11/17 11:19 LRN [id number]) Physical Therapy Assessment Impairments Impairments Activity Tolerance Pain Posture ROM Soft Tissue Mobility Strength Other Impairments S/P surgery in Acute stage of healing. Goals Eight Impairment Lacks appropriate HEP Skilled Nursing Goal (LTG) Pt will be independent in a HEP LTG Duration 12 weeks Six Impairment Decreased function Skilled Nursing Goal (LTG) UE QuickDASH Score no more than 20% impairment. LTG Duration 12 weeks. Five Impairment Decreased functional use of L shoulder Physician Coder Goal (LTG) Per protocol: Start scapulothoracic rhythmic strengthening/stabilization & alternating isometrics in supine for pt to begin use of hand for feeding and light activities of ADL's (dressing, washing). Four Impairment No ROM of L shoulder IR Physician Coder Goal (LTG) Per protocol: Initiate PROM of IR for L shoulder not to exceed 50 deg' s. Start ER/IR isometrics ( submaximal & painfree) LTG Duration Start in 6 weeks. Three Impairment Decreased L shoulder strength Short Term Goal (STG) Per protocol: Pt able to tolerate submaximal pain-free Deltoid isometrics in scapular plane (no ext) with HEP STG Duration 3 weeks Two Impairment Decreased L shoulder AROM Short Term Goal (STG) Goals to be set once pt is cleared for AROM. STG Duration Set in ~6 weeks One Impairment Decreased L shoulder PROM. Pt to be in sling 6-8 wks. Short Term Goal (STG) Per protocol: FF 90 deg's, ER 20 deg's, NO IR. STG Duration 3 weeks s/p surgery on 09/12/17 Physician Coder Goal (LTG) Per protocol: FF 120 deg's, ER to tolerance, respecting soft tissue constraints LTG Duration 6 weeks s/p surgery on 09/12/17 Progress Towards Goals Progress Towards Goals Progressing Toward Goals Progress Comments L shoulder PROM post treatment : flex 118 deg's, ER 28 deg's. Assessment Summary Assessment Pt is ~ 4 weeks post operative L TSA. ROM continues to improve at 1x/week therapy until he is progressed to AAROM. Physical Therapy Plan Frequency and Duration Frequency of Treatment 2x/Week Duration of Treatment 11 Weeks Plan of Care Start Date 09/19/17 Plan of Care End Date 12/12/17 Therapeutic Interventions Therapeutic Interventions Aquatic Therapy Home Exercise Program Manual Therapy Neuromuscular Re-education Patient/Caregiver Education Self-Care/Home Management Soft Tissue Mobilization Taping Therapeutic Activities Therapeutic Exercises Modalities Cold Pack/Ice Massage Hot Packs Next Visit Focus/Plan Next Visit Plan Continue TSA rehab per protocol. PROM goals: FF 120 deg's, ER to tolerance. Progress periscapular isometrics and Deltoid isometrics. Next progression in protocol is at 6 wks post op. Please Sign and Return: I have reviewed this Plan of Care and certify that the skilled therapy services above are required to meet the patient???s needs. Physician Signature Date Printed Name and Credentials Clinical Instructor Signature Printed Name and Credentials
--- NOTE | 2017-10-17 15:19 | PT.OTN ---
Current Diagnoses Primary osteoarthritis, left shoulder (10/17/17) Physical Therapy Treatment Note PT-OP-A Visit Information Start: 09/19/17 15:44 Freq: Status: Active Protocol: Document 10/17/17 10:35 LRN (Rec: 10/17/17 10:48 LRN [id number]) Out-Patient Physical Therapy Visit Information Visit Information Visit Type Treatment Note Visit Note 10/23 Visit Start Time 10:35 Visit Stop Time 11:27 Total Visit Minutes 52 Visit Number 6 Number of PROGRAM AIDE Visits 0 Evaluation Information Evaluation Date 09/19/17 PT-OP-C Subjective Start: 09/19/17 15:44 Freq: Status: Active Protocol: Document 10/17/17 10:35 LRN (Rec: 10/17/17 10:48 LRN [id number]) OP-PT Subjective Patient Comments Patient Comments Everything is going good. Thinks he's met the ROM goal. PT-OP-J Posture/Palpation/Skin Start: 09/19/17 15:44 Freq: Status: Active Protocol: Document 09/19/17 10:40 LRN (Rec: 09/20/17 10:28 LRN [id number]) Posture Evaluation Position Sitting Evaluation View Anterior Head/C-Spine Posture Neutral Position Scapula Posture (L) Depressed Comments Posture Comments Sitting: Pt sits slumped with straightened thoracic spine. L scapula is tightly bound to the ribcage. There is a moderate Dowager's hump. Moderate forward head. Standing: hips flexed ~10 deg' s. Palpation Assessment Location Three Palpation Location Posterior L shoulder Palpation Findings Tenderness Two Palpation Location Upper shoulder Palpation Findings Muscle Guarding One Palpation Location L side neck Palpation Findings Muscle Guarding Skin Assessment Incisional Assessment Incision Appearance/Comments Unable to assess. Scar covered with waterproof bandage (Aquacil). PT-OP-K Range of Motion Start: 09/19/17 15:44 Freq: Status: Active Protocol: Document 10/17/17 10:35 LRN (Rec: 10/17/17 11:05 LRN [id number]) Shoulder Goniometric Range of Motion Shoulder ROM Limitations Shoulder ROM Limitations Pain Comments Post treatment: Shoulder ER PROM: @ 0 deg's AB - 26 deg's PT-OP-Q Treatments Start: 09/19/17 15:44 Freq: Status: Active Protocol: Document 10/17/17 10:35 LRN (Rec: 10/17/17 11:12 LRN [id number]) Therapeutic Exercises Supine Exercises 8 Supine Exercise Name Isometric Scapular retraction/ depression. Side left Reps/Minutes 10 5 Supine Exercise Name SUB-MAXIMAL & PAINFREE Deltoid ext, AB isometrics Side left Resistance Manual Reps/Minutes 5 each Comments Hold 5 sec's 4 Supine Exercise Name Active Elbow flexion Side left Resistance 1# Reps/Minutes 10x3 2 Supine Exercise Name Passive L shoulder ER to 20 deg's with 0 deg's AB Side left Reps/Minutes 10' Comments Good tolerance, pt is stoic 1 Supine Exercise Name Passive L shoulder flex up to 98 deg's. Max 120 deg's. Side left Reps/Minutes 10' Comments Good tolerance, pt is stoic Sitting Exercises 1 Sitting Exercise Name Wrist/Hand AROM Side left Resistance 2# Reps/Minutes 15x2 Self-Care/Home Management Treatment Activities Self-Care/Home Management Activities Quick review of PROM L shoulder: Flex 0-120 deg's limit, ER as tolerated limit. NO EXT, and caution with Scapular retraction. PT-OP-R Modalities Start: 09/19/17 15:44 Freq: Status: Active Protocol: Document 10/17/17 10:35 LRN (Rec: 10/17/17 12:41 LRN [id number]) Hot Pack/Cold Pack Treatment Hot Pack Location L shoulder Patient Position Supine Treatment Duration (minutes) 10 Comments MHP used during L shoulder ex' s. Cold Pack Location L shoulder Patient Position Supine Treatment Duration (minutes) 10 Patient Tolerance Good Comments Cold pack at end of treatment. PT-OP-T Assessment and Plan Start: 09/19/17 15:44 Freq: Status: Active Protocol: Document 10/17/17 10:35 LRN (Rec: 10/17/17 12:49 LRN [id number]) Physical Therapy Assessment Goals Eight Impairment Lacks approriate HEP Assembler Insulator Goal (LTG) Pt will be independent in a HEP LTG Duration 12 weeks Six Impairment Decreased function Skilled Nursing Goal (LTG) UE QuickDASH Score no more than 20% impairment. LTG Duration 12 weeks. Five Impairment Decreased functional use of L shoulder Skilled Nursing Goal (LTG) Per protocol: Start scapulothoracic rhythmic strengthening/stabilization & alternating isometrics in supine for pt to begin use of hand for feeding and light activities of ADL's (dressing, washing). Four Impairment No ROM of L shoulder IR Skilled Nursing Goal (LTG) Per protocol: Initiate PROM of IR for L shoulder not to exceed 50 deg' s. Start ER/IR isometrics ( submaximal & painfree) LTG Duration Start in 6 weeks. Three Impairment Decreased L shoulder strength Short Term Goal (STG) Per protocol: Pt able to tolerate submaximal pain-free Deltoid isometrics in scapular plane (no ext) with HEP STG Duration 3 weeks Two Impairment Decreased L shoulder AROM Short Term Goal (STG) Goals to be set once pt is cleared for AROM. STG Duration Set in ~6 weeks One Impairment Decreased L shoulder PROM. Pt to be in sling 6-8 wks. Short Term Goal (STG) Per protocol: FF 90 deg's, ER 20 deg's, NO IR. STG Duration 3 weeks s/p surgery on 09/12/17 Assembler Insulator Goal (LTG) Per protocol: FF 120 deg's, ER to tolerance, respecting soft tissue contraints LTG Duration 6 weeks s/p surgery on 09/12/17 Progress Towards Goals Progress Towards Goals Progressing Toward Goals Progress Comments L shoulder PROM post treatment : flex 122 deg's, ER 26 deg's. Assessment Summary Assessment Passive L shoulder flexion is slightly beyond protocol ROM limitation of 120 deg's, ER is slightly worse than last treatment session. Pt appears to have a good understanding of the ROM limits per protocol . Physical Therapy Plan Frequency and Duration Frequency of Treatment 2x/Week Duration of Treatment 10 Weeks Plan of Care Start Date 09/19/17 Plan of Care End Date 12/12/17 Next Visit Focus/Plan Next Visit Plan Pt to see 10/25/17. Continue TSA rehab per protocol. PROM goals: FF 120 deg's, ER to tolerance. Progress periscapular and Deltoid Isometric strength.
--- NOTE | 2017-10-24 16:13 | PT.OTN ---
Current Diagnoses Primary osteoarthritis, left shoulder (10/24/17) Physical Therapy Treatment Note PT-OP-A Visit Information Start: 09/19/17 15:44 Freq: Status: Active Protocol: Document 10/24/17 11:15 AMB (Rec: 10/24/17 16:08 AMB [email or web address]) Out-Patient Physical Therapy Visit Information Visit Information Visit Type Treatment Note Visit Note 11/22 Visit Start Time 11:15 Visit Stop Time 12:10 Total Visit Minutes 55 Visit Number 7 Number of INTERNATIONAL EDITORIAL PRODUCER Visits 0 Evaluation Information Evaluation Date 09/19/17 PT-OP-C Subjective Start: 09/19/17 15:44 Freq: Status: Active Protocol: Document 10/24/17 11:15 AMB (Rec: 10/24/17 16:08 AMB [email or web address]) OP-PT Subjective Patient Comments Patient Comments Pt states he is doing well, very little pain, seeing MD tomorrow. PT-OP-J Posture/Palpation/Skin Start: 09/19/17 15:44 Freq: Status: Active Protocol: Document 09/19/17 10:40 LRN (Rec: 09/20/17 10:28 LRN [id number]) Posture Evaluation Position Sitting Evaluation View Anterior Head/C-Spine Posture Neutral Position Scapula Posture (L) Depressed Comments Posture Comments Sitting: Pt sits slumped with straightened thoracic spine. L scapula is tightly bound to the ribcage. There is a moderate Dowager's hump. Moderate forward head. Standing: hips flexed ~10 deg' s. Palpation Assessment Location Three Palpation Location Posterior L shoulder Palpation Findings Tenderness Two Palpation Location Upper shoulder Palpation Findings Muscle Guarding One Palpation Location L side neck Palpation Findings Muscle Guarding Skin Assessment Incisional Assessment Incision Appearance/Comments Unable to assess. Scar covered with waterproof bandage (Aquacil). PT-OP-K Range of Motion Start: 09/19/17 15:44 Freq: Status: Active Protocol: Document 10/17/17 10:35 LRN (Rec: 10/17/17 11:05 LRN [id number]) Shoulder Goniometric Range of Motion Shoulder ROM Limitations Shoulder ROM Limitations Pain Comments Post treatment: Shoulder ER PROM: @ 0 deg's AB - 26 deg's PT-OP-Q Treatments Start: 09/19/17 15:44 Freq: Status: Active Protocol: Document 10/24/17 11:15 AMB (Rec: 10/24/17 16:10 AMB [email or web address]) Therapeutic Exercises Supine Exercises 8 Supine Exercise Name Isometric Scapular retraction/ depression. Side left Reps/Minutes 10 5 Supine Exercise Name SUB-MAXIMAL & PAINFREE Deltoid ext, AB isometrics Side left Resistance Manual Reps/Minutes 5 each Comments Hold 5 sec's 4 Supine Exercise Name Active Elbow flexion Side left Resistance 2# Reps/Minutes 10x3 2 Supine Exercise Name Passive L shoulder ER to 20 deg's with 0 deg's AB Side left Reps/Minutes 10' Comments Good tolerance, pt is stoic 1 Supine Exercise Name Passive L shoulder flex up to 98 deg's. Max 120 deg's. Side left Reps/Minutes 10' Comments Good tolerance, pt is stoic Sitting Exercises 1 Sitting Exercise Name Wrist/Hand AROM Side left Resistance 2# Reps/Minutes 15x2 PT-OP-R Modalities Start: 09/19/17 15:44 Freq: Status: Active Protocol: Document 10/24/17 11:15 AMB (Rec: 10/24/17 16:10 AMB [email or web address]) Hot Pack/Cold Pack Treatment Hot Pack Location L shoulder Patient Position Supine Treatment Duration (minutes) 10 Comments MHP used during L shoulder ex' s. Cold Pack Location L shoulder Patient Position Supine Treatment Duration (minutes) 10 Patient Tolerance Good Comments Cold pack at end of treatment. PT-OP-T Assessment and Plan Start: 09/19/17 15:44 Freq: Status: Active Protocol: Document 10/24/17 11:15 AMB (Rec: 10/24/17 16:13 AMB [email or web address]) Physical Therapy Assessment Assessment Summary Assessment Pt hoping to be able to d/c sling soon and progress exercises after MD appt tomorrow. Good pain control with tylenol. Physical Therapy Plan Frequency and Duration Frequency of Treatment 2x/Week Duration of Treatment 10 Weeks Plan of Care Start Date 09/19/17 Plan of Care End Date 12/12/17 Please Sign and Return: I have reviewed this Plan of Care and certify that the skilled therapy services above are required to meet the patient?s needs. Physician Signature Date Printed Name and Credentials Clinical Instructor Signature Printed Name and Credentials
--- NOTE | 2017-11-02 12:48 | PT.OTN ---
Current Diagnoses Primary osteoarthritis, left shoulder (11/02/17) Physical Therapy Treatment Note PT-OP-A Visit Information Start: 09/19/17 15:44 Freq: Status: Active Protocol: Document 11/02/17 10:30 GGD (Rec: 11/02/17 12:48 GGD [email or web address]) Out-Patient Physical Therapy Visit Information Visit Information Visit Type Treatment Note Visit Note 12/23 Visit Start Time 10:30 Visit Stop Time 11:20 Total Visit Minutes 50 Visit Number 8 Number of PHERESIS NURSE Visits 1 Evaluation Information Evaluation Date 09/19/17 PT-OP-C Subjective Start: 09/19/17 15:44 Freq: Status: Active Protocol: Document 11/02/17 10:30 GGD (Rec: 11/02/17 12:48 GGD [email or web address]) OP-PT Subjective Patient Comments Patient Comments Pt states MD ok him to progress to strengthening per the PT. PT-OP-J Posture/Palpation/Skin Start: 09/19/17 15:44 Freq: Status: Active Protocol: Document 09/19/17 10:40 LRN (Rec: 09/20/17 10:28 LRN [id number]) Posture Evaluation Position Sitting Evaluation View Anterior Head/C-Spine Posture Neutral Position Scapula Posture (L) Depressed Comments Posture Comments Sitting: Pt sits slumped with straightened thoracic spine. L scapula is tightly bound to the ribcage. There is a moderate Dowager's hump. Moderate forward head. Standing: hips flexed ~10 deg' s. Palpation Assessment Location Three Palpation Location Posterior L shoulder Palpation Findings Tenderness Two Palpation Location Upper shoulder Palpation Findings Muscle Guarding One Palpation Location L side neck Palpation Findings Muscle Guarding Skin Assessment Incisional Assessment Incision Appearance/Comments Unable to assess. Scar covered with waterproof bandage (Aquacil). PT-OP-K Range of Motion Start: 09/19/17 15:44 Freq: Status: Active Protocol: Document 10/17/17 10:35 LRN (Rec: 10/17/17 11:05 LRN [id number]) Shoulder Goniometric Range of Motion Shoulder ROM Limitations Shoulder ROM Limitations Pain Comments Post treatment: Shoulder ER PROM: @ 0 deg's AB - 26 deg's PT-OP-Q Treatments Start: 09/19/17 15:44 Freq: Status: Active Protocol: Document 11/02/17 10:30 GGD (Rec: 11/02/17 12:48 GGD [email or web address]) Therapeutic Exercises Supine Exercises 9 Supine Exercise Name shoulder abdution Side left Resistance AAROM Equipment Used wand Reps/Minutes 5 8 Supine Exercise Name Isometric Scapular retraction/ depression. Side left Reps/Minutes 10 5 Supine Exercise Name ext, AB, ER isometrics Side left Resistance Manual Reps/Minutes 5 each Comments Hold 5 sec's 2 Supine Exercise Name L shoulder ER Side left Equipment Used wand Reps/Minutes 5 1 Supine Exercise Name shoulder flexion Side left Equipment Used wand Reps/Minutes 5 Sitting Exercises 2 Sitting Exercise Name flexion and abdution Side left Resistance nohemi Reps/Minutes 8 Manual Therapy Treatment Manual Techniques 1 Type PROM Body Location left shoulder Body Position Supine Reps/Duration 10 PT-OP-R Modalities Start: 09/19/17 15:44 Freq: Status: Active Protocol: Document 11/02/17 10:30 GGD (Rec: 11/02/17 12:48 GGD [email or web address]) Hot Pack/Cold Pack Treatment Cold Pack Location L shoulder Patient Position Supine Treatment Duration (minutes) 10 Patient Tolerance Good Comments Cold pack at end of treatment. PT-OP-T Assessment and Plan Start: 09/19/17 15:44 Freq: Status: Active Protocol: Document 11/02/17 10:30 GGD (Rec: 11/02/17 12:48 GGD [email or web address]) Physical Therapy Assessment Assessment Summary Assessment Pt improving with ROM. He had good tolerance to AAROM. Physical Therapy Plan Frequency and Duration Frequency of Treatment 2x/Week Duration of Treatment 10 Weeks Plan of Care Start Date 09/19/17 Plan of Care End Date 12/12/17 Next Visit Focus/Plan Next Note Type Treatment Note Next Visit Plan progress AAROM. Add IR isometics and PROM not to exceed 50 degress. Gentle glenohumeral joint mobs grade 1 and 2.
--- NOTE | 2017-11-09 16:38 | PT.OTN ---
Current Diagnoses Primary osteoarthritis, left shoulder (11/09/17) Physical Therapy Treatment Note PT-OP-A Visit Information Start: 09/19/17 15:44 Freq: Status: Active Protocol: Document 11/09/17 11:12 AMB (Rec: 11/09/17 11:13 AMB [id number]) Out-Patient Physical Therapy Visit Information Visit Information Visit Type Treatment Note Visit Note 01/23 Visit Start Time 11:15 Visit Stop Time 12:10 Total Visit Minutes 50 Visit Number 9 Number of DETENTION OFFICER Visits 0 Evaluation Information Evaluation Date 09/19/17 PT-OP-C Subjective Start: 09/19/17 15:44 Freq: Status: Active Protocol: Document 11/09/17 11:15 AMB (Rec: 11/09/17 16:38 AMB [email or web address]) OP-PT Subjective Patient Comments Patient Comments Pt states the shoulder has been feeling good, he may feel slight discomfort with exercises, but he ices afterwards and then feels great. He has returned to driving, but is not really using the left arm to steer. PT-OP-J Posture/Palpation/Skin Start: 09/19/17 15:44 Freq: Status: Active Protocol: Document 09/19/17 10:40 LRN (Rec: 09/20/17 10:28 LRN [id number]) Posture Evaluation Position Sitting Evaluation View Anterior Head/C-Spine Posture Neutral Position Scapula Posture (L) Depressed Comments Posture Comments Sitting: Pt sits slumped with straightened thoracic spine. L scapula is tightly bound to the ribcage. There is a moderate Dowager's hump. Moderate forward head. Standing: hips flexed ~10 deg' s. Palpation Assessment Location Three Palpation Location Posterior L shoulder Palpation Findings Tenderness Two Palpation Location Upper shoulder Palpation Findings Muscle Guarding One Palpation Location L side neck Palpation Findings Muscle Guarding Skin Assessment Incisional Assessment Incision Appearance/Comments Unable to assess. Scar covered with waterproof bandage (Aquacil). PT-OP-K Range of Motion Start: 09/19/17 15:44 Freq: Status: Active Protocol: Document 10/17/17 10:35 LRN (Rec: 10/17/17 11:05 LRN [id number]) Shoulder Goniometric Range of Motion Shoulder ROM Limitations Shoulder ROM Limitations Pain Comments Post treatment: Shoulder ER PROM: @ 0 deg's AB - 26 deg's PT-OP-Q Treatments Start: 09/19/17 15:44 Freq: Status: Active Protocol: Document 11/09/17 11:15 AMB (Rec: 11/09/17 11:27 AMB [id number]) Therapeutic Exercises Supine Exercises 11 Supine Exercise Name abduction AROM Reps/Minutes 5 Comments supine to 45 degrees 10 Supine Exercise Name alternating isometrics Resistance submaximal Reps/Minutes 3 min Comments shoulder at 90 degrees, horizontal abd, add, flexion 9 Supine Exercise Name shoulder abduction Side left Resistance AAROM Equipment Used wand Reps/Minutes 5 5 Supine Exercise Name flx, AB, ER, IR isometrics Side left Resistance Manual Reps/Minutes 5 each Comments Hold 5 sec's 1 Supine Exercise Name shoulder flexion Side left Equipment Used wand Reps/Minutes 5 Sitting Exercises 2 Sitting Exercise Name flexion and abdution Side left Resistance nohemi Reps/Minutes 8 Manual Therapy Treatment Manual Techniques 1 Type PROM Body Location left shoulder Body Position Supine Reps/Duration 10 PT-OP-R Modalities Start: 09/19/17 15:44 Freq: Status: Active Protocol: Document 11/09/17 11:15 AMB (Rec: 11/09/17 16:29 AMB [email or web address]) Hot Pack/Cold Pack Treatment Cold Pack Location L shoulder Patient Position Supine Treatment Duration (minutes) 10 Patient Tolerance Good Comments Cold pack at end of treatment. PT-OP-T Assessment and Plan Start: 09/19/17 15:44 Freq: Status: Active Protocol: Document 11/09/17 11:15 AMB (Rec: 11/09/17 11:32 AMB [id number]) Physical Therapy Assessment Assessment Summary Assessment Good tolerance with isometrics . Physical Therapy Plan Next Visit Focus/Plan Next Note Type Progress Note Next Visit Plan Per protocol can add in 1-3# weights with AROM at week 9, will need to progress tolerance to AROM first. G codes next visit.
--- NOTE | 2017-11-14 13:24 | PT.OPPN ---
Current Diagnoses Primary osteoarthritis, left shoulder (11/14/17) Physical Therapy Progress Note PT-OP-A Visit Information Start: 09/19/17 15:44 Freq: Status: Active Protocol: Document 11/14/17 11:25 LRN (Rec: 11/14/17 12:29 LRN [id number]) Out-Patient Physical Therapy Visit Information Visit Information Visit Type Progress Note Visit Note 02/22 Visit Start Time 11:25 Visit Stop Time 12:20 Total Visit Minutes 55 Visit Number 10 Number of MATERIAL MOVERS Visits 0 Evaluation Information Evaluation Date 09/19/17 PT-OP-C Subjective Start: 09/19/17 15:44 Freq: Status: Active Protocol: Document 11/14/17 11:25 LRN (Rec: 11/14/17 12:29 LRN [id number]) OP-PT Subjective Patient Comments Patient Comments 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 Patient Questionnaires Quick Dash- Upper Extremity Quick Dash UE Score 25 Quick Dash UE Impairment 20 to 39% Impaired (Score 20- 39) PT-OP-J Posture/Palpation/Skin Start: 09/19/17 15:44 Freq: Status: Active Protocol: Document 09/19/17 10:40 LRN (Rec: 09/20/17 10:28 LRN [id number]) Posture Evaluation Position Sitting Evaluation View Anterior Head/C-Spine Posture Neutral Position Scapula Posture (L) Depressed Comments Posture Comments Sitting: Pt sits slumped with straightened thoracic spine. L scapula is tightly bound to the ribcage. There is a moderate Dowager's hump. Moderate forward head. Standing: hips flexed ~10 deg' s. Palpation Assessment Location Three Palpation Location Posterior L shoulder Palpation Findings Tenderness Two Palpation Location Upper shoulder Palpation Findings Muscle Guarding One Palpation Location L side neck Palpation Findings Muscle Guarding Skin Assessment Incisional Assessment Incision Appearance/Comments Unable to assess. Scar covered with waterproof bandage (Aquacil). PT-OP-K Range of Motion Start: 09/19/17 15:44 Freq: Status: Active Protocol: Document 11/14/17 11:25 LRN (Rec: 11/14/17 12:29 LRN [id number]) Shoulder Goniometric Range of Motion Shoulder Measured in Degrees Left Testing Position Supine Flexion 150 Abduction 105 External Rotation at 90 degrees 67 Abduction Internal Rotation 45 PT-OP-T Assessment and Plan Start: 09/19/17 15:44 Freq: Status: Active Protocol: Document 11/14/17 11:25 LRN (Rec: 11/14/17 12:29 LRN [id number]) Physical Therapy Assessment Rehab Potential Rehabilitation Potential Excellent Impairments Impairments Activity Tolerance Functional Activities Functional Mobility Pain ROM Soft Tissue Mobility Strength Other Concerns Age Related Concerns Needs assist with ex's, hearing difficulty, pictures with exercises. Barriers to Rehabilitation 65+ Age Goals Eight Impairment Lacks approriate HEP Senior Living Goal (LTG) Pt will be independent in a HEP LTG Duration 01/02/18 Six Impairment Decreased function Supervisor [employer]ig[employer] Processing Goal (LTG) UE QuickDASH Score no more than 20% impairment. LTG Duration 12/23/17 Five Impairment Decreased functional use of L shoulder Supervisor [employer] Goal (LTG) Per protocol: Start scapulothoracic rhythmic strengthening/stabilization & alternating isometrics in supine for pt to begin use of hand for feeding and light activities of ADL's (dressing, washing). LTG Duration Goal met Four Impairment Decreased L shoulder IR Senior Living Goal (LTG) Per protocol: PROM of IR for L shoulder not to exceed 50 deg's. Start ER/IR isometrics with light weight 1-3# or light resistive bands. LTG Duration 12/23/17 Three Impairment Decreased L shoulder strength Short Term Goal (STG) Per protocol: Pt able to lift light weights (1-3#) in scapular plane for flex. PRECAUTION: No lifting > 6# or sudden lifting/pushing. STG Duration 12/05/17 LTG Duration 01/02/18 Two Impairment Decreased L shoulder AROM Short Term Goal (STG) Goals to be set once pt is cleared for AROM. STG Duration Set in ~6 weeks One Impairment Decreased L shoulder PROM. Pt to be in sling 6-8 wks. Short Term Goal (STG) Per protocol: FF 90 deg's, ER 20 deg's, NO IR. STG Duration Goal met. Supervisor [employer] Goal (LTG) Per protocol: L shoulder AROM at least: FF 120 deg's, ER 30 deg's to tolerance, gentle resisted shoulder flex/ elevation in standing < 6#. LTG Duration 01/02/18 Progress Towards Goals Progress Towards Goals Progressing Toward Goals Progress Comments L shoulder PROM: Flexion 150 degs ER (90 degs AB) 67 degs IR (90 deg's AB) 45 degs AB 105 deg's. Pt strengthening program currently is against gravity for resistance. He will be progressed once he is 9 weeks post operative per protocol. Assessment Summary Assessment Pt PROM is good in supine. He tolerates end-range stretching very well and appears to have a good understanding of limitations with ER/IR to avoid shoulder displacement. We are avoiding shoulder extension per protocol. The pt is now ready to progress with a strengthening program; therefore therapy visits will be increased to 2x/week once he is s/p 9 weeks post operative care. Physical Therapy Plan Frequency and Duration Frequency of Treatment 2x/Week Duration of Treatment 10 Weeks Plan of Care Start Date 09/19/17 Plan of Care End Date 12/23/17 Therapeutic Interventions Therapeutic Interventions Aquatic Therapy Home Exercise Program Manual Therapy Neuromuscular Re-education Patient/Caregiver Education Self-Care/Home Management Soft Tissue Mobilization Taping Therapeutic Activities Therapeutic Exercises Modalities Cold Pack/Ice Massage Hot Packs Next Visit Focus/Plan Next Note Type Treatment Note Next Visit Plan Per protocol can add in 1-3# weights with AROM at week 9, will need to progress tolerance to AROM first. G codes next visit.
--- NOTE | 2017-11-14 13:27 | PT.OTN ---
Current Diagnoses Primary osteoarthritis, left shoulder (11/14/17) Physical Therapy Treatment Note PT-OP-A Visit Information Start: 09/19/17 15:44 Freq: Status: Active Protocol: Document 11/14/17 11:25 LRN (Rec: 11/14/17 12:29 LRN [id number]) Out-Patient Physical Therapy Visit Information Visit Information Visit Type Progress Note Visit Note 02/22 Visit Start Time 11:25 Visit Stop Time 12:20 Total Visit Minutes 55 Visit Number 10 Number of SENIOR TECHNICAL EDITOR Visits 0 Evaluation Information Evaluation Date 09/19/17 PT-OP-C Subjective Start: 09/19/17 15:44 Freq: Status: Active Protocol: Document 11/14/17 11:25 LRN (Rec: 11/14/17 12:29 LRN [id number]) OP-PT Subjective Patient Comments Patient Comments 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 Patient Questionnaires Quick Dash- Upper Extremity Quick Dash UE Score 25 Quick Dash UE Impairment 20 to 39% Impaired (Score 20- 39) PT-OP-J Posture/Palpation/Skin Start: 09/19/17 15:44 Freq: Status: Active Protocol: Document 09/19/17 10:40 LRN (Rec: 09/20/17 10:28 LRN [id number]) Posture Evaluation Position Sitting Evaluation View Anterior Head/C-Spine Posture Neutral Position Scapula Posture (L) Depressed Comments Posture Comments Sitting: Pt sits slumped with straightened thoracic spine. L scapula is tightly bound to the ribcage. There is a moderate Dowager's hump. Moderate forward head. Standing: hips flexed ~10 deg' s. Palpation Assessment Location Three Palpation Location Posterior L shoulder Palpation Findings Tenderness Two Palpation Location Upper shoulder Palpation Findings Muscle Guarding One Palpation Location L side neck Palpation Findings Muscle Guarding Skin Assessment Incisional Assessment Incision Appearance/Comments Unable to assess. Scar covered with waterproof bandage (Aquacil). PT-OP-K Range of Motion Start: 09/19/17 15:44 Freq: Status: Active Protocol: Document 11/14/17 11:25 LRN (Rec: 11/14/17 12:29 LRN [id number]) Shoulder Goniometric Range of Motion Shoulder Measured in Degrees Left Testing Position Supine Flexion 150 Abduction 105 External Rotation at 90 degrees 67 Abduction Internal Rotation 45 PT-OP-Q Treatments Start: 09/19/17 15:44 Freq: Status: Active Protocol: Document 11/14/17 11:25 LRN (Rec: 11/14/17 12:29 LRN [id number]) Therapeutic Exercises Supine Exercises 10 Supine Exercise Name Shoulder Isometric Resistance max as tolerated Reps/Minutes 3 min 9 Supine Exercise Name shoulder abduction Side left Resistance AAROM Equipment Used wand Reps/Minutes 5 2 Supine Exercise Name L shoulder ER/IR with arm 90 deg's ABD Side left Equipment Used wand Reps/Minutes 15 1 Supine Exercise Name shoulder flexion end-range stretch Side left Equipment Used wand Reps/Minutes 8 Sitting Exercises 3 Sitting Exercise Name Elbow flexion Side bilateral Resistance 3# Reps/Minutes 10x3 2 Sitting Exercise Name Shoulder flexion and abdution Side left Resistance nohemi Reps/Minutes 8 1 Sitting Exercise Name Wrist/Hand sup/pron/flex/ext Side left Resistance 3# Reps/Minutes 10x2 Standing Exercises 2 Standing Exercise Name Shoulder AB with/without cane Side left Reps/Minutes 10x2 1 Standing Exercise Name Shoulder flex with/without cane Side left Reps/Minutes 10x2 Self-Care/Home Management Treatment Education Patient Education Home Exercise Program Activities Self-Care/Home Management Activities I/S pt to add to HEP: L shoulder strengthening against gravity for flex/AB and use of cane for end-range stretch; stretch into ER/IR at shoulder 90 deg's AB and IR behind back with strap. Pt to guard excessive anterior translation of L humeral head. PT-OP-R Modalities Start: 09/19/17 15:44 Freq: Status: Active Protocol: Document 11/14/17 11:25 LRN (Rec: 11/14/17 12:38 LRN [id number]) Hot Pack/Cold Pack Treatment Cold Pack Location L shoulder Patient Position Supine Treatment Duration (minutes) 10 Patient Tolerance Good Comments Cold pack at end of treatment. PT-OP-T Assessment and Plan Start: 09/19/17 15:44 Freq: Status: Active Protocol: Document 11/14/17 11:25 LRN (Rec: 11/14/17 12:29 LRN [id number]) Physical Therapy Assessment Rehab Potential Rehabilitation Potential Excellent Impairments Impairments Activity Tolerance Functional Activities Functional Mobility Pain ROM Soft Tissue Mobility Strength Other Concerns Age Related Concerns Needs assist with ex's, hearing difficulty, pictures with exercises. Barriers to Rehabilitation 65+ Age Goals Eight Impairment Lacks approriate HEP Winter Sports Manager Goal (LTG) Pt will be independent in a HEP LTG Duration 01/02/18 Six Impairment Decreased function Winter Sports Manager Goal (LTG) UE QuickDASH Score no more than 20% impairment. LTG Duration 12/23/17 Five Impairment Decreased functional use of L shoulder Winter Sports Manager Goal (LTG) Per protocol: Start scapulothoracic rhythmic strengthening/stabilization & alternating isometrics in supine for pt to begin use of hand for feeding and light activities of ADL's (dressing, washing). LTG Duration Goal met Four Impairment Decreased L shoulder IR Winter Sports Manager Goal (LTG) Per protocol: PROM of IR for L shoulder not to exceed 50 deg's. Start ER/IR isometrics with light weight 1-3# or light resistive bands. LTG Duration 12/23/17 Three Impairment Decreased L shoulder strength Short Term Goal (STG) Per protocol: Pt able to lift light weights (1-3#) in scapular plane for flex. PRECAUTION: No lifting > 6# or sudden lifting/pushing. STG Duration 12/05/17 LTG Duration 01/02/18 Two Impairment Decreased L shoulder AROM Short Term Goal (STG) Goals to be set once pt is cleared for AROM. STG Duration Set in ~6 weeks One Impairment Decreased L shoulder PROM. Pt to be in sling 6-8 wks. Short Term Goal (STG) Per protocol: FF 90 deg's, ER 20 deg's, NO IR. STG Duration Goal met. Winter Sports Manager Goal (LTG) Per protocol: L shoulder AROM at least: FF 120 deg's, ER 30 deg's to tolerance, gentle resisted shoulder flex/ elevation in standing < 6#. LTG Duration 01/02/18 Progress Towards Goals Progress Towards Goals Progressing Toward Goals Progress Comments L shoulder PROM: Flexion 150 degs ER (90 degs AB) 67 degs IR (90 deg's AB) 45 degs AB 105 deg's. Pt strengthening program currently is against gravity for resistance. He will be progressed once he is 9 weeks post operative per protocol. Assessment Summary Assessment Pt PROM is good in supine. He tolerates end-range stretching very well and appears to have a good understanding of limitations with ER/IR to avoid shoulder displacement. We are avoiding shoulder extension per protocol. The pt is now ready to progress with a strengthening program; therefore therapy visits will be increased to 2x/week once he is s/p 9 weeks post operative care. Physical Therapy Plan Frequency and Duration Frequency of Treatment 2x/Week Duration of Treatment 10 Weeks Plan of Care Start Date 09/19/17 Plan of Care End Date 12/23/17 Therapeutic Interventions Therapeutic Interventions Aquatic Therapy Home Exercise Program Manual Therapy Neuromuscular Re-education Patient/Caregiver Education Self-Care/Home Management Soft Tissue Mobilization Taping Therapeutic Activities Therapeutic Exercises Modalities Cold Pack/Ice Massage Hot Packs Next Visit Focus/Plan Next Note Type Treatment Note Next Visit Plan Per protocol can add in 1-3# weights with AROM at week 9, will need to progress tolerance to AROM first. G codes next visit.
--- NOTE | 2017-11-21 14:25 | PT.OTN ---
Current Diagnoses Primary osteoarthritis, left shoulder (11/21/17) Physical Therapy Treatment Note PT-OP-A Visit Information Start: 09/19/17 15:44 Freq: Status: Active Protocol: Document 11/21/17 11:15 LRN (Rec: 11/21/17 11:33 LRN [id number]) Out-Patient Physical Therapy Visit Information Visit Information Visit Type Treatment Note Visit Note 04/04 Visit Start Time 11:15 Visit Stop Time 12:05 Total Visit Minutes 50 Visit Number 11 Number of DROP WIRE OPERATOR Visits 0 Evaluation Information Evaluation Date 09/19/17 PT-OP-C Subjective Start: 09/19/17 15:44 Freq: Status: Active Protocol: Document 11/21/17 11:15 LRN (Rec: 11/21/17 11:33 LRN [id number]) OP-PT Subjective Patient Comments Patient Comments States he stopped neck ex's because he had sudden onset of neck pain and had a chiroprator friend work with him for 3 visits to get his pain down. He is doing his L arm ex's with a cane. PT-OP-J Posture/Palpation/Skin Start: 09/19/17 15:44 Freq: Status: Active Protocol: Document 09/19/17 10:40 LRN (Rec: 09/20/17 10:28 LRN [id number]) Posture Evaluation Position Sitting Evaluation View Anterior Head/C-Spine Posture Neutral Position Scapula Posture (L) Depressed Comments Posture Comments Sitting: Pt sits slumped with straightened thoracic spine. L scapula is tightly bound to the ribcage. There is a moderate Dowager's hump. Moderate forward head. Standing: hips flexed ~10 deg' s. Palpation Assessment Location Three Palpation Location Posterior L shoulder Palpation Findings Tenderness Two Palpation Location Upper shoulder Palpation Findings Muscle Guarding One Palpation Location L side neck Palpation Findings Muscle Guarding Skin Assessment Incisional Assessment Incision Appearance/Comments Unable to assess. Scar covered with waterproof bandage (Aquacil). PT-OP-K Range of Motion Start: 09/19/17 15:44 Freq: Status: Active Protocol: Document 11/21/17 11:15 LRN (Rec: 11/21/17 11:34 LRN [id number]) Shoulder Goniometric Range of Motion Shoulder Measured in Degrees Left Testing Position Supine PT-OP-Q Treatments Start: 09/19/17 15:44 Freq: Status: Active Protocol: Document 11/21/17 11:15 LRN (Rec: 11/21/17 11:33 LRN [id number]) Therapeutic Exercises Supine Exercises 11 Reps/Minutes 3 min 9 Supine Exercise Name shoulder abduction Side left Resistance AAROM Equipment Used wand Reps/Minutes 5 2 Supine Exercise Name Done in sidelie 1 Supine Exercise Name shoulder flexion end-range stretch Side left Equipment Used wand Reps/Minutes 8 Sidelying Exercises 2 Sidelying Exercise Name Shoulder AB to max tolerance Side left Resistance Boles 1 Sidelying Exercise Name Shoulder ER/IR Side left Resistance 1#, 0# Reps/Minutes 8, 30 respectively Sitting Exercises 3 Sitting Exercise Name Elbow flexion Side bilateral Resistance 3# Reps/Minutes 10x3 2 Sitting Exercise Name Shoulder flexion and abdution Side left Resistance nohemi and active shoulder press Reps/Minutes 8 - 10 reops Standing Exercises 2 Standing Exercise Name Shoulder AB without cane Side left Reps/Minutes 10x2 1 Standing Exercise Name Shoulder flex without cane Side left Reps/Minutes 10x2 Self-Care/Home Management Treatment Education Patient Education Home Exercise Program Activities Self-Care/Home Management Activities Issued & reviewed HEP: L shoulder light strengthening ( chest press, lat pull down, ER /IR, AB, PNF, (lev 1 or 1-3# wgt). PT-OP-R Modalities Start: 09/19/17 15:44 Freq: Status: Active Protocol: Document 11/21/17 11:15 LRN (Rec: 11/21/17 11:33 LRN [id number]) Hot Pack/Cold Pack Treatment Cold Pack Location L shoulder Patient Position Supine Treatment Duration (minutes) 10 Patient Tolerance Good Comments Cold pack at end of treatment. PT-OP-T Assessment and Plan Start: 09/19/17 15:44 Freq: Status: Active Protocol: Document 11/21/17 11:15 LRN (Rec: 11/21/17 11:33 LRN [id number]) Physical Therapy Assessment Rehab Potential Rehabilitation Potential Excellent Evaluation Complexity Number of Personal Factors/Comorbidities 1-2 Number of Body Systems Impaired 3 Clinical Presentation at Evaluation Evolving Impairments Impairments Activity Tolerance Functional Activities Functional Mobility Pain ROM Soft Tissue Mobility Strength Other Concerns Age Related Concerns Needs assist with ex's, hearing difficulty, pictures with exercises. Barriers to Rehabilitation 65+ Age Goals Eight Impairment Lacks approriate HEP Veneer Sheet Repairer Goal (LTG) Pt will be independent in a HEP LTG Duration 01/02/18 Six Impairment Decreased function Veneer Sheet Repairer Goal (LTG) UE QuickDASH Score no more than 20% impairment. LTG Duration 12/23/17 Five Impairment Decreased functional use of L shoulder Veneer Sheet Repairer Goal (LTG) Per protocol: Start scapulothoracic rhythmic strengthening/stabilization & alternating isometrics in supine for pt to begin use of hand for feeding and light activities of ADL's (dressing, washing). LTG Duration Goal met Four Impairment Decreased L shoulder IR Veneer Sheet Repairer Goal (LTG) Per protocol: PROM of IR for L shoulder not to exceed 50 deg's. Start ER/IR isometrics with light weight 1-3# or light resistive bands. LTG Duration 12/23/17 Three Impairment Decreased L shoulder strength Short Term Goal (STG) Per protocol: Pt able to lift light weights (1-3#) in scapular plane for flex. PRECAUTION: No lifting > 6# or sudden lifting/pushing. STG Duration 12/05/17 LTG Duration 01/02/18 Two Impairment Decreased L shoulder AROM Short Term Goal (STG) Goals to be set once pt is cleared for AROM. STG Duration Set in ~6 weeks One Impairment Decreased L shoulder PROM. Pt to be in sling 6-8 wks. Short Term Goal (STG) Per protocol: FF 90 deg's, ER 20 deg's, NO IR. STG Duration Goal met. Assisted Goal (LTG) Per protocol: L shoulder AROM at least: FF 120 deg's, ER 30 deg's to tolerance, gentle resisted shoulder flex/ elevation in standing < 6#. LTG Duration 01/02/18 Assessment Summary Assessment Pt is ~10 weeks post op. Pt's shoulder ER/IR is most restricted. His has no complaints of pain with ex's using 1# wgt for resistance and he has good contraction of Deltoid and periscapular muscles although shoulder depressors are weak. Physical Therapy Plan Frequency and Duration Frequency of Treatment 2x/Week Duration of Treatment 10 Weeks Plan of Care Start Date 09/19/17 Plan of Care End Date 12/23/17 Therapeutic Interventions Therapeutic Interventions Aquatic Therapy Home Exercise Program Manual Therapy Neuromuscular Re-education Patient/Caregiver Education Self-Care/Home Management Soft Tissue Mobilization Taping Therapeutic Activities Therapeutic Exercises Modalities Cold Pack/Ice Massage Hot Packs Next Visit Focus/Plan Next Note Type Treatment Note Next Visit Plan Progress through weeks 10-12 of protocol with max as tolerated shoulder Flex (1-120 ), IR, ER (30 deg's functional ROM). Strengthen scapular stabilizers.
--- NOTE | 2017-11-28 15:23 | PT.OTN ---
Current Diagnoses Primary osteoarthritis, left shoulder (11/28/17) Physical Therapy Treatment Note PT-OP-A Visit Information Start: 09/19/17 15:44 Freq: Status: Active Protocol: Document 11/28/17 11:17 LRN (Rec: 11/28/17 12:38 LRN [id number]) Out-Patient Physical Therapy Visit Information Visit Information Visit Type Treatment Note Visit Note 05/04 Visit Start Time 11:17 Visit Stop Time 12:07 Total Visit Minutes 50 Visit Number 12 Number of CLOTH DOFFER Visits 0 Evaluation Information Evaluation Date 09/19/17 PT-OP-C Subjective Start: 09/19/17 15:44 Freq: Status: Active Protocol: Document 11/28/17 11:17 LRN (Rec: 11/28/17 14:49 LRN [id number]) OP-PT Subjective Patient Comments Patient Comments Able to get L arm up high with or without a cane. PT-OP-J Posture/Palpation/Skin Start: 09/19/17 15:44 Freq: Status: Active Protocol: Document 09/19/17 10:40 LRN (Rec: 09/20/17 10:28 LRN [id number]) Posture Evaluation Position Sitting Evaluation View Anterior Head/C-Spine Posture Neutral Position Scapula Posture (L) Depressed Comments Posture Comments Sitting: Pt sits slumped with straightened thoracic spine. L scapula is tightly bound to the ribcage. There is a moderate Dowager's hump. Moderate forward head. Standing: hips flexed ~10 deg' s. Palpation Assessment Location Three Palpation Location Posterior L shoulder Palpation Findings Tenderness Two Palpation Location Upper shoulder Palpation Findings Muscle Guarding One Palpation Location L side neck Palpation Findings Muscle Guarding Skin Assessment Incisional Assessment Incision Appearance/Comments Unable to assess. Scar covered with waterproof bandage (Aquacil). PT-OP-K Range of Motion Start: 09/19/17 15:44 Freq: Status: Active Protocol: Document 11/28/17 11:17 LRN (Rec: 11/28/17 12:38 LRN [id number]) Shoulder Goniometric Range of Motion Shoulder Measured in Degrees Right Active Testing Position Sitting Flexion 155 Abduction 180 Right Passive Testing Position Supine Flexion 155 Abduction 180 External Rotation at 90 degrees 115 Abduction Internal Rotation 65 Left Active Testing Position Sitting Flexion 145 Left Testing Position Supine Flexion 147 Abduction 102 External Rotation at 90 degrees 55 Abduction Internal Rotation 30 PT-OP-Q Treatments Start: 09/19/17 15:44 Freq: Status: Active Protocol: Document 11/28/17 11:17 LRN (Rec: 11/28/17 12:38 LRN [id number]) Cardio Equipment Upper Body Ergometer (UBE) Duration (Minutes) 10 RPM 60 Height 7 Therapeutic Exercises Supine Exercises 10 Supine Exercise Name Lat pull down Side bilateral Resistance L 2 T-Band 5 Supine Exercise Name Active/Passive flx, AB, ER, IR for ROM msmt Side bilateral Reps/Minutes 10 Sidelying Exercises 2 Sidelying Exercise Name Shoulder AB to max tolerance Side left Resistance 1# 1 Sidelying Exercise Name Shoulder ER/IR Side left Resistance 1#, 2# Reps/Minutes 20, 8 respectively Sitting Exercises 2 Sitting Exercise Name Shoulder flexion, abduction for ROM & msmt Side left Resistance nohemi and active shoulder press Reps/Minutes 6' Self-Care/Home Management Treatment Education Patient Education Home Exercise Program Activities Self-Care/Home Management Activities Issue strap for pt to do lat pull down with T-Band at home PT-OP-R Modalities Start: 09/19/17 15:44 Freq: Status: Active Protocol: Document 11/28/17 11:17 LRN (Rec: 11/28/17 12:38 LRN [id number]) Hot Pack/Cold Pack Treatment Cold Pack Location L shoulder Patient Position Supine Treatment Duration (minutes) 10 Patient Tolerance Good Comments Cold pack at end of treatment. PT-OP-T Assessment and Plan Start: 09/19/17 15:44 Freq: Status: Active Protocol: Document 11/28/17 11:17 LRN (Rec: 11/28/17 12:38 LRN [id number]) Physical Therapy Assessment Goals Eight Impairment Lacks appropriate HEP Bilingual School Psychologist Goal (LTG) Pt will be independent in a HEP LTG Duration 01/02/18 Six Impairment Decreased function [facility] Goal (LTG) UE QuickDASH Score no more than 20% impairment. LTG Duration 12/23/17 Five Impairment Decreased functional use of L shoulder Bilingual School Psychologist Goal (LTG) Per protocol: Start scapulothoracic rhythmic strengthening/stabilization & alternating isometrics in supine for pt to begin use of hand for feeding and light activities of ADL's (dressing, washing). LTG Duration Goal met Four Impairment Decreased L shoulder IR [facility] Goal (LTG) Per protocol: PROM of IR for L shoulder not to exceed 50 deg's. Start ER/IR isometrics with light weight 1-3# or light resistive bands. LTG Duration 11/28/17: Goal Met. Three Impairment Decreased L shoulder strength Short Term Goal (STG) Per protocol: Pt able to lift light weights (1-3#) in scapular plane for flex. PRECAUTION: No lifting > 6# or sudden lifting/pushing. STG Duration 12/05/17 [facility] Goal (LTG) Proper scapulohumeral rhythm with lifting of L arm. LTG Duration 01/02/18 Two Impairment Decreased L shoulder AROM [facility] Goal (LTG) Shoulder AROM up to 120 deg's and ER of 30 deg's with proper shoulder mechanics. LTG Duration 01/02/18 One Impairment Decreased L shoulder PROM. Pt to be in sling 6-8 wks. Short Term Goal (STG) Per protocol: FF 90 deg's, ER 20 deg's, NO IR. STG Duration Goal met. [facility] Goal (LTG) Per protocol: L shoulder AROM at least: FF 120 deg's, ER 30 deg's to tolerance, gentle resisted shoulder flex/ elevation in standing < 6#. LTG Duration 01/02/18 Assessment Summary Assessment Pt is 11 weeks post op today. Pt's shoulder ER/IR is most restricted. His has no complaints of pain with ex's using 1# wgt for resistance and he has good contraction of Deltoid and periscapular muscles although shoulder depressors are weak. Physical Therapy Plan Next Visit Focus/Plan Next Note Type Treatment Note Next Visit Plan Pt is 11 weeks post op today. Recheck for proper scapulohumeral rhythm and strengthen if needed. Progress through weeks 10-12 of protocol with max as tolerated shoulder Flex (1-120 ), IR, ER (30 deg's functional ROM). Per protocol he is to continue strengthening with light weights (1-3#) with varying deg's of trunk elevation, progressing gentle GHJ IR & ER strengthening in sidelie with light T-Band. Moderate strengthening on wk 12 (<6# lifting). DC therapy if painfree shoulder AROM up to 120 deg's and ER of 30 deg' s with proper shoulder mechanics.
--- NOTE | 2017-12-05 13:07 | PT.OTN ---
Current Diagnoses Primary osteoarthritis, left shoulder (12/05/17) Physical Therapy Treatment Note PT-OP-A Visit Information Start: 09/19/17 15:44 Freq: Status: Active Protocol: Document 12/05/17 11:15 LRN (Rec: 12/05/17 12:31 LRN [id number]) Out-Patient Physical Therapy Visit Information Visit Information Visit Type Treatment Note Visit Note Visit Start Time 11:15 Visit Stop Time 12:15 Total Visit Minutes 60 Visit Number 13 Number of PLASTER LATHER Visits 0 Evaluation Information Evaluation Date 09/19/17 PT-OP-C Subjective Start: 09/19/17 15:44 Freq: Status: Active Protocol: Document 12/05/17 11:15 LRN (Rec: 12/05/17 12:31 LRN [id number]) OP-PT Subjective Patient Comments Patient Comments He is seeing the MD tomorrow. PT-OP-J Posture/Palpation/Skin Start: 09/19/17 15:44 Freq: Status: Active Protocol: Document 09/19/17 10:40 LRN (Rec: 09/20/17 10:28 LRN [id number]) Posture Evaluation Position Sitting Evaluation View Anterior Head/C-Spine Posture Neutral Position Scapula Posture (L) Depressed Comments Posture Comments Sitting: Pt sits slumped with straightened thoracic spine. L scapula is tightly bound to the ribcage. There is a moderate Dowager's hump. Moderate forward head. Standing: hips flexed ~10 deg' s. Palpation Assessment Location Three Palpation Location Posterior L shoulder Palpation Findings Tenderness Two Palpation Location Upper shoulder Palpation Findings Muscle Guarding One Palpation Location L side neck Palpation Findings Muscle Guarding Skin Assessment Incisional Assessment Incision Appearance/Comments Unable to assess. Scar covered with waterproof bandage (Aquacil). PT-OP-K Range of Motion Start: 09/19/17 15:44 Freq: Status: Active Protocol: Document 12/05/17 11:15 LRN (Rec: 12/05/17 12:46 LRN [id number]) Shoulder Goniometric Range of Motion Shoulder Measured in Degrees Left Active Testing Position Sitting Flexion 144 Abduction 147 Left Testing Position Supine Flexion 160 Abduction 155 External Rotation at 90 degrees 45 Abduction Internal Rotation 25 PT-OP-Q Treatments Start: 09/19/17 15:44 Freq: Status: Active Protocol: Document 12/05/17 11:15 LRN (Rec: 12/05/17 12:31 LRN [id number]) Therapeutic Exercises Supine Exercises 10 Supine Exercise Name Lat pull down Side bilateral Resistance L 2 T-Band Reps/Minutes 10x3 5 Supine Exercise Name Active/Passive flx, AB, ER, IR for ROM msmt Side bilateral Reps/Minutes 10 1 Supine Exercise Name shoulder flexion end-range stretch Side left Equipment Used wand Reps/Minutes 8 Sidelying Exercises 1 Sidelying Exercise Name Shoulder ER/IR Side left Resistance 2#, 3# Reps/Minutes 20, 8 respectively Sitting Exercises 2 Sitting Exercise Name Shoulder flex, AB Comments ROM taken Standing Exercises 5 Standing Exercise Name Scapular retraction/depression (lat pull) Side bilateral Resistance Lev 3 Equipment Used T-Band Reps/Minutes 10x 4 Standing Exercise Name Scapular Depression Side left Equipment Used Lev 2 Reps/Minutes T-Band Comments 10x 3 Standing Exercise Name Scapular retraction Side bilateral Resistance L 3 Equipment Used T-Band Reps/Minutes 10x3 each 2 Standing Exercise Name Shoulder AB press uip Side bilateral Resistance 2# with assist, 1# Reps/Minutes 8x, 10x2 respectively 1 Standing Exercise Name Shoulder press up Side bilateral Resistance 2# with assist, 1# Reps/Minutes 10x, 10x2 Self-Care/Home Management Treatment Education Patient Education Home Exercise Program Activities Self-Care/Home Management Activities Issued Lev 2 & Lev 3 T-Band with white strap for HEP. Handouts issued for scapular stabilization ex's. PT-OP-R Modalities Start: 09/19/17 15:44 Freq: Status: Active Protocol: Document 12/05/17 11:15 LRN (Rec: 12/05/17 12:31 LRN [id number]) Hot Pack/Cold Pack Treatment Cold Pack Location L shoulder Patient Position Supine Treatment Duration (minutes) 10 Patient Tolerance Good Comments Cold pack at end of treatment. PT-OP-T Assessment and Plan Start: 09/19/17 15:44 Freq: Status: Active Protocol: Document 12/05/17 11:15 LRN (Rec: 12/05/17 12:31 LRN [id number]) Physical Therapy Assessment Rehab Potential Rehabilitation Potential Excellent Impairments Impairments Activity Tolerance Functional Activities Pain ROM Strength Other Concerns Age Related Concerns Hearing difficulty, pictures with exercises. Barriers to Rehabilitation 65+ Age Goals Eight Impairment Lacks appropriate HEP Senior Care Goal (LTG) Pt will be independent in a HEP LTG Duration 01/02/18 Six Impairment Decreased function Senior Care Goal (LTG) UE QuickDASH Score no more than 20% impairment. LTG Duration 12/23/17 Five Impairment Decreased functional use of L shoulder Senior Care Goal (LTG) Per protocol: Start scapulothoracic rhythmic strengthening/stabilization & alternating isometrics in supine for pt to begin use of hand for feeding and light activities of ADL's (dressing, washing). LTG Duration GOAL MET Four Impairment Decreased L shoulder IR Refining Still Operator Goal (LTG) Per protocol: PROM of IR for L shoulder not to exceed 50 deg's. Start ER/IR isometrics with light weight 1-3# or light resistive bands. LTG Duration 11/28/17: GOAL MET. Three Impairment Decreased L shoulder strength Short Term Goal (STG) Per protocol: Pt able to lift light weights (1-3#) in scapular plane for flex. PRECAUTION: No lifting > 6# or sudden lifting/pushing. STG Duration 12/05/17 Refining Still Operator Goal (LTG) Proper scapulohumeral rhythm with lifting of L arm. LTG Duration 01/02/18 Two Impairment Decreased L shoulder AROM Senior Care Goal (LTG) Shoulder AROM up to 120 deg's and ER of 30 deg's with proper shoulder mechanics. LTG Duration 01/02/18 One Impairment Decreased L shoulder PROM. Pt to be in sling 6-8 wks. Short Term Goal (STG) Per protocol: FF 90 deg's, ER 20 deg's, NO IR. STG Duration GOAL MET. Senior Care Goal (LTG) Per protocol: L shoulder AROM at least: FF 120 deg's, ER 30 deg's to tolerance, gentle resisted shoulder flex/ elevation in standing < 6#. LTG Duration 12/05/17: GOAL MET Progress Towards Goals Progress Towards Goals Progressing Toward Goals Progress Comments L shoulder ROM goals met. Pt needs further scapular stabilization for proper shoulder mechanics. Pt is weak in functional strength. Assessment Summary Assessment Pt is 12 weeks L TSA. Pt needs L shoulder strengthening and scapular stabilization. Physical Therapy Plan Frequency and Duration Frequency of Treatment 2x/Week Duration of Treatment 10 Weeks Plan of Care Start Date 09/19/17 Plan of Care End Date 12/23/17 Therapeutic Interventions Therapeutic Interventions Home Exercise Program Manual Therapy Neuromuscular Re-education Patient/Caregiver Education Self-Care/Home Management Soft Tissue Mobilization Therapeutic Activities Therapeutic Exercises Modalities Cold Pack/Ice Massage Hot Packs Next Visit Focus/Plan Next Visit Plan Pt to see Dr. Mancini tomorrow, recheck on status at next appt . Pt is 12 weeks s/p L TSA. Progress through weeks 10-12 of protocol with max as tolerated shoulder Flex (1-120 ), IR, ER (30 deg's functional ROM). Per protocol he is to continue strengthening with light weights (1-6#) with varying deg's of trunk elevation. Moderate strengthening on wk 12 (<6# lifting). DC therapy if painfree shoulder AROM up to 120 deg's and ER of 30 deg's with proper shoulder mechanics .
--- NOTE | 2017-12-12 12:37 | PT.OTN ---
Current Diagnoses Primary osteoarthritis, left shoulder (12/12/17) Physical Therapy Treatment Note PT-OP-A Visit Information Start: 09/19/17 15:44 Freq: Status: Active Protocol: Document 12/12/17 10:30 AMB (Rec: 12/12/17 11:22 AMB [id number]) Out-Patient Physical Therapy Visit Information Visit Information Visit Type Treatment Note Visit Note Visit Start Time 10:30 Visit Stop Time 11:20 Total Visit Minutes 55 Visit Number 14 Number of COLOR MAKER FORMULATOR Visits 0 Evaluation Information Evaluation Date 09/19/17 PT-OP-C Subjective Start: 09/19/17 15:44 Freq: Status: Active Protocol: Document 12/12/17 10:30 AMB (Rec: 12/12/17 11:22 AMB [id number]) OP-PT Subjective Patient Comments Patient Comments Pt saw MD who said he will likely not have equal ROM, but he should focus on getting a HEP and gym program that he can be independent with. PT-OP-J Posture/Palpation/Skin Start: 09/19/17 15:44 Freq: Status: Active Protocol: Document 09/19/17 10:40 LRN (Rec: 09/20/17 10:28 LRN [id number]) Posture Evaluation Position Sitting Evaluation View Anterior Head/C-Spine Posture Neutral Position Scapula Posture (L) Depressed Comments Posture Comments Sitting: Pt sits slumped with straightened thoracic spine. L scapula is tightly bound to the ribcage. There is a moderate Dowager's hump. Moderate forward head. Standing: hips flexed ~10 deg' s. Palpation Assessment Location Three Palpation Location Posterior L shoulder Palpation Findings Tenderness Two Palpation Location Upper shoulder Palpation Findings Muscle Guarding One Palpation Location L side neck Palpation Findings Muscle Guarding Skin Assessment Incisional Assessment Incision Appearance/Comments Unable to assess. Scar covered with waterproof bandage (Aquacil). PT-OP-K Range of Motion Start: 09/19/17 15:44 Freq: Status: Active Protocol: Document 12/05/17 11:15 LRN (Rec: 12/05/17 12:46 LRN [id number]) Shoulder Goniometric Range of Motion Shoulder Measured in Degrees Left Active Testing Position Sitting Flexion 144 Abduction 147 Left Testing Position Supine Flexion 160 Abduction 155 External Rotation at 90 degrees 45 Abduction Internal Rotation 25 PT-OP-Q Treatments Start: 09/19/17 15:44 Freq: Status: Active Protocol: Document 12/12/17 10:30 AMB (Rec: 12/12/17 11:06 AMB [id number]) Therapeutic Exercises Supine Exercises 12 Supine Exercise Name scap protraction Resistance 5# Reps/Minutes 2x10 1 Supine Exercise Name shoulder flexion end-range stretch Side left Equipment Used wand Reps/Minutes 8 Sidelying Exercises 2 Sidelying Exercise Name Shoulder AB to max tolerance Side left Resistance 1# 1 Sidelying Exercise Name Shoulder ER/IR Side left Resistance 2#, 3# Reps/Minutes 20, 8 respectively Sitting Exercises 3 Sitting Exercise Name Elbow flexion Side bilateral Resistance 5# Reps/Minutes 10x3 2 Sitting Exercise Name Shoulder flex, AB Resistance #1 Standing Exercises 5 Standing Exercise Name Scapular retraction/depression (lat pull) Side bilateral Resistance Lev 3 Equipment Used T-Band Reps/Minutes 10x PT-OP-R Modalities Start: 09/19/17 15:44 Freq: Status: Active Protocol: Document 12/12/17 10:30 AMB (Rec: 12/12/17 11:22 AMB [id number]) Hot Pack/Cold Pack Treatment Cold Pack Location L shoulder Patient Position Supine Treatment Duration (minutes) 10 Patient Tolerance Good Comments Cold pack at end of treatment. PT-OP-T Assessment and Plan Start: 09/19/17 15:44 Freq: Status: Active Protocol: Document 12/12/17 10:30 AMB (Rec: 12/12/17 11:25 AMB [id number]) Physical Therapy Assessment Assessment Summary Assessment Weakness into scapular protraction and GH abduction. Physical Therapy Plan Next Visit Focus/Plan Next Note Type Treatment Note Next Visit Plan Progress shoulder strengthening, with focus on independence and safety with gym/home program.
--- NOTE | 2017-12-19 15:43 | PT.OTN ---
Current Diagnoses Primary osteoarthritis, left shoulder (12/19/17) Physical Therapy Treatment Note PT-OP-A Visit Information Start: 09/19/17 15:44 Freq: Status: Active Protocol: Document 12/19/17 11:20 LRN (Rec: 12/19/17 12:38 LRN [id number]) Out-Patient Physical Therapy Visit Information Visit Information Visit Type Treatment Note Visit Note Visit Start Time 11:20 Visit Stop Time 12:10 Total Visit Minutes 50 Visit Number 15 Number of CRAYON MOLDING MACHINE OPERATOR Visits 0 Evaluation Information Evaluation Date 09/19/17 PT-OP-C Subjective Start: 09/19/17 15:44 Freq: Status: Active Protocol: Document 12/19/17 11:20 LRN (Rec: 12/19/17 12:38 LRN [id number]) OP-PT Subjective Patient Comments Patient Comments Is now able to put wallet into the back pocket. States MD was okay with him being supervised with ex's and to cont PT. PT-OP-J Posture/Palpation/Skin Start: 09/19/17 15:44 Freq: Status: Active Protocol: Document 09/19/17 10:40 LRN (Rec: 09/20/17 10:28 LRN [id number]) Posture Evaluation Position Sitting Evaluation View Anterior Head/C-Spine Posture Neutral Position Scapula Posture (L) Depressed Comments Posture Comments Sitting: Pt sits slumped with straightened thoracic spine. L scapula is tightly bound to the ribcage. There is a moderate Dowager's hump. Moderate forward head. Standing: hips flexed ~10 deg' s. Palpation Assessment Location Three Palpation Location Posterior L shoulder Palpation Findings Tenderness Two Palpation Location Upper shoulder Palpation Findings Muscle Guarding One Palpation Location L side neck Palpation Findings Muscle Guarding Skin Assessment Incisional Assessment Incision Appearance/Comments Unable to assess. Scar covered with waterproof bandage (Aquacil). PT-OP-K Range of Motion Start: 09/19/17 15:44 Freq: Status: Active Protocol: Document 12/05/17 11:15 LRN (Rec: 12/05/17 12:46 LRN [id number]) Shoulder Goniometric Range of Motion Shoulder Measured in Degrees Left Active Testing Position Sitting Flexion 144 Abduction 147 Left Testing Position Supine Flexion 160 Abduction 155 External Rotation at 90 degrees 45 Abduction Internal Rotation 25 PT-OP-Q Treatments Start: 09/19/17 15:44 Freq: Status: Active Protocol: Document 12/19/17 11:20 LRN (Rec: 12/19/17 12:38 LRN [id number]) Cardio Equipment Upper Body Ergometer (UBE) Duration (Minutes) 10 Height 7 Therapeutic Exercises Supine Exercises 12 Supine Exercise Name scap protraction Resistance 5# Reps/Minutes 3x10 10 Supine Exercise Name Lat pull down Side bilateral Resistance L3 T-Band Reps/Minutes 10x3 1 Supine Exercise Name shoulder flexion end-range stretch Side left Equipment Used wand Reps/Minutes 8 Sitting Exercises 3 Sitting Exercise Name Elbow flexion Side bilateral Resistance 3# Reps/Minutes 10x3 Standing Exercises 4 Standing Exercise Name Scapular Depression Side left Equipment Used Lev 2 Reps/Minutes T-Band Comments 10x 3 Standing Exercise Name Shoulder protraction pushing against wall 2 Standing Exercise Name Shoulder AB press up Side bilateral Resistance 2#, 1#, 0# Reps/Minutes 10x1 each 1 Standing Exercise Name Shoulder press up Side bilateral Resistance 2# Reps/Minutes 9x3 PT-OP-R Modalities Start: 09/19/17 15:44 Freq: Status: Active Protocol: Document 12/19/17 11:20 LRN (Rec: 12/19/17 12:38 LRN [id number]) Hot Pack/Cold Pack Treatment Cold Pack Location L shoulder Patient Position Supine Treatment Duration (minutes) 10 Patient Tolerance Good Comments Cold pack at end of treatment. PT-OP-T Assessment and Plan Start: 09/19/17 15:44 Freq: Status: Active Protocol: Document 12/19/17 11:20 LRN (Rec: 12/19/17 12:38 LRN [id number]) Physical Therapy Assessment Impairments Impairments Activity Tolerance Functional Activities Pain ROM Strength Other Concerns Age Related Concerns Hearing difficulty, pictures with exercises. Barriers to Rehabilitation 65+ Age Goals Eight Impairment Lacks appropriate HEP Revenue Coordinator Goal (LTG) Pt will be independent in a HEP LTG Duration 01/02/18 Six Impairment Decreased function Correction Goal (LTG) UE QuickDASH Score no more than 20% impairment. LTG Duration 12/23/17 Five Impairment Decreased functional use of L shoulder Correction Goal (LTG) Per protocol: Start scapulothoracic rhythmic strengthening/stabilization & alternating isometrics in supine for pt to begin use of hand for feeding and light activities of ADL's (dressing, washing). LTG Duration GOAL MET Four Impairment Decreased L shoulder IR Correction Goal (LTG) Per protocol: PROM of IR for L shoulder not to exceed 50 deg's. Start ER/IR isometrics with light weight 1-3# or light resistive bands. LTG Duration 11/28/17: GOAL MET. Three Impairment Decreased L shoulder strength Short Term Goal (STG) Per protocol: Pt able to lift light weights (1-3#) in scapular plane for flex. PRECAUTION: No lifting > 6# or sudden lifting/pushing. STG Duration 12/05/17 Correction Goal (LTG) Proper scapulohumeral rhythm with lifting of L arm. LTG Duration 01/02/18 Two Impairment Decreased L shoulder AROM Revenue Coordinator Goal (LTG) Shoulder AROM up to 120 deg's and ER of 30 deg's with proper shoulder mechanics. LTG Duration 01/02/18 One Impairment Decreased L shoulder PROM. Pt to be in sling 6-8 wks. Short Term Goal (STG) Per protocol: FF 90 deg's, ER 20 deg's, NO IR. STG Duration GOAL MET. Revenue Coordinator Goal (LTG) Per protocol: L shoulder AROM at least: FF 120 deg's, ER 30 deg's to tolerance, gentle resisted shoulder flex/ elevation in standing < 6#. LTG Duration 12/05/17: GOAL MET Assessment Summary Assessment Pt is 14 weeks po L TSA. Physical Therapy Plan Frequency and Duration Frequency of Treatment 2x/Week Duration of Treatment 10 Weeks Plan of Care Start Date 09/19/17 Plan of Care End Date 12/23/17 Therapeutic Interventions Therapeutic Interventions Home Exercise Program Manual Therapy Neuromuscular Re-education Patient/Caregiver Education Self-Care/Home Management Soft Tissue Mobilization Therapeutic Activities Therapeutic Exercises Modalities Cold Pack/Ice Massage Hot Packs Next Visit Focus/Plan Next Note Type Treatment Note Next Visit Plan Progress shoulder strengthening, with focus on independence and safety with gym/home program.
--- NOTE | 2017-12-23 10:29 | PT.OTN ---
Current Diagnoses Primary osteoarthritis, left shoulder (12/23/17) Physical Therapy Treatment Note PT-OP-A Visit Information Start: 09/19/17 15:44 Freq: Status: Active Protocol: Document 12/23/17 09:44 LRN (Rec: 12/23/17 10:29 LRN [id number]) Out-Patient Physical Therapy Visit Information Visit Information Visit Type Treatment Note Visit Note Visit Start Time 09:44 Visit Stop Time 10:36 Total Visit Minutes 52 Visit Number 16 Number of CAR OILER Visits 0 Evaluation Information Evaluation Date 09/19/17 PT-OP-C Subjective Start: 09/19/17 15:44 Freq: Status: Active Protocol: Document 12/23/17 09:44 LRN (Rec: 12/23/17 10:29 LRN [id number]) OP-PT Subjective Patient Comments Patient Comments Happy to be able to seat belt himself and put his wallet in his back pocket PT-OP-J Posture/Palpation/Skin Start: 09/19/17 15:44 Freq: Status: Active Protocol: Document 09/19/17 10:40 LRN (Rec: 09/20/17 10:28 LRN [id number]) Posture Evaluation Position Sitting Evaluation View Anterior Head/C-Spine Posture Neutral Position Scapula Posture (L) Depressed Comments Posture Comments Sitting: Pt sits slumped with straightened thoracic spine. L scapula is tightly bound to the ribcage. There is a moderate Dowager's hump. Moderate forward head. Standing: hips flexed ~10 deg' s. Palpation Assessment Location Three Palpation Location Posterior L shoulder Palpation Findings Tenderness Two Palpation Location Upper shoulder Palpation Findings Muscle Guarding One Palpation Location L side neck Palpation Findings Muscle Guarding Skin Assessment Incisional Assessment Incision Appearance/Comments Unable to assess. Scar covered with waterproof bandage (Aquacil). PT-OP-K Range of Motion Start: 09/19/17 15:44 Freq: Status: Active Protocol: Document 12/05/17 11:15 LRN (Rec: 12/05/17 12:46 LRN [id number]) Shoulder Goniometric Range of Motion Shoulder Measured in Degrees Left Active Testing Position Sitting Flexion 144 Abduction 147 Left Testing Position Supine Flexion 160 Abduction 155 External Rotation at 90 degrees 45 Abduction Internal Rotation 25 PT-OP-Q Treatments Start: 09/19/17 15:44 Freq: Status: Active Protocol: Document 12/23/17 09:44 LRN (Rec: 12/23/17 10:29 LRN [id number]) Therapeutic Exercises Supine Exercises 10 Supine Exercise Name Lat pull down Side bilateral Resistance L3 T-Band Reps/Minutes 10x3 Standing Exercises 5 Standing Exercise Name Scapular retraction/depression (lat pull) Side bilateral Resistance Lev 3 Equipment Used T-Band Reps/Minutes 10x3 4 Standing Exercise Name Scapular Depression Side bilateral Equipment Used Lev 2 Reps/Minutes 10' Comments Extra training time needed to get scapular depression 3 Standing Exercise Name Shoulder protraction pushing against wall Reps/Minutes 10x3 Comments From the wall 2 Standing Exercise Name Shoulder AB press up Side bilateral Resistance 2# Reps/Minutes 10x3 1 Standing Exercise Name Shoulder press up Side bilateral Resistance 2# Reps/Minutes 9x3 PT-OP-R Modalities Start: 09/19/17 15:44 Freq: Status: Active Protocol: Document 12/23/17 09:44 LRN (Rec: 12/23/17 10:29 LRN [id number]) Hot Pack/Cold Pack Treatment Cold Pack Location L shoulder Patient Position Supine Treatment Duration (minutes) 10 Patient Tolerance Good Comments Cold pack at end of treatment. PT-OP-T Assessment and Plan Start: 09/19/17 15:44 Freq: Status: Active Protocol: Document 12/23/17 09:44 LRN (Rec: 12/23/17 10:29 LRN [id number]) Physical Therapy Assessment Impairments Impairments Activity Tolerance Functional Activities Pain ROM Strength Other Concerns Age Related Concerns Hearing difficulty, pictures with exercises. Barriers to Rehabilitation 65+ Age Goals Eight Impairment Lacks appropriate HEP Talent Development Director Goal (LTG) Pt will be independent in a HEP LTG Duration 01/02/18 Six Impairment Decreased function Talent Development Director Goal (LTG) UE QuickDASH Score no more than 20% impairment. LTG Duration 12/23/17 Five Impairment Decreased functional use of L shoulder Talent Development Director Goal (LTG) Per protocol: Start scapulothoracic rhythmic strengthening/stabilization & alternating isometrics in supine for pt to begin use of hand for feeding and light activities of ADL's (dressing, washing). LTG Duration GOAL MET Four Impairment Decreased L shoulder IR Talent Development Director Goal (LTG) Per protocol: PROM of IR for L shoulder not to exceed 50 deg's. Start ER/IR isometrics with light weight 1-3# or light resistive bands. LTG Duration 11/28/17: GOAL MET. Three Impairment Decreased L shoulder strength Short Term Goal (STG) Per protocol: Pt able to lift light weights (1-3#) in scapular plane for flex. PRECAUTION: No lifting > 6# or sudden lifting/pushing. STG Duration 12/05/17 Fdc Goal (LTG) Proper scapulohumeral rhythm with lifting of L arm. LTG Duration 01/02/18 Two Impairment Decreased L shoulder AROM Fdc Goal (LTG) Shoulder AROM up to 120 deg's and ER of 30 deg's with proper shoulder mechanics. LTG Duration 01/02/18 One Impairment Decreased L shoulder PROM. Pt to be in sling 6-8 wks. Short Term Goal (STG) Per protocol: FF 90 deg's, ER 20 deg's, NO IR. STG Duration GOAL MET. Fdc Goal (LTG) Per protocol: L shoulder AROM at least: FF 120 deg's, ER 30 deg's to tolerance, gentle resisted shoulder flex/ elevation in standing < 6#. LTG Duration 12/05/17: GOAL MET Assessment Summary Assessment Pt is 15 weeks s/p L TSA. Poor scapular depression, improved scapular protraction, some weakness with retraction . Physical Therapy Plan Frequency and Duration Frequency of Treatment 2x/Week Duration of Treatment 10 Weeks Plan of Care Start Date 09/19/17 Plan of Care End Date 12/23/17 Next Visit Focus/Plan Next Note Type Treatment Note Next Visit Plan Progress shoulder strengthening, with focus on independence and safety with gym/home program.
--- NOTE | 2017-12-26 16:09 | PT.OTN ---
Current Diagnoses Primary osteoarthritis, left shoulder (12/26/17) Physical Therapy Treatment Note PT-OP-A Visit Information Start: 09/19/17 15:44 Freq: Status: Active Protocol: Document 12/26/17 11:18 LRN (Rec: 12/26/17 12:24 LRN [id number]) Out-Patient Physical Therapy Visit Information Visit Information Visit Type Treatment Note Visit Note Visit Start Time 11:18 Visit Stop Time 12:18 Total Visit Minutes 60 Visit Number 17 Number of ENDLESS TRACK VEHICLE MECHANIC Visits 0 Evaluation Information Evaluation Date 09/19/17 PT-OP-C Subjective Start: 09/19/17 15:44 Freq: Status: Active Protocol: Document 12/26/17 11:18 LRN (Rec: 12/26/17 12:46 LRN [id number]) OP-PT Subjective Patient Comments Patient Comments Would like to review his HEP. Was scrapping his archer to get ready to pain but using his R arm only. PT-OP-J Posture/Palpation/Skin Start: 09/19/17 15:44 Freq: Status: Active Protocol: Document 09/19/17 10:40 LRN (Rec: 09/20/17 10:28 LRN [id number]) Posture Evaluation Position Sitting Evaluation View Anterior Head/C-Spine Posture Neutral Position Scapula Posture (L) Depressed Comments Posture Comments Sitting: Pt sits slumped with straightened thoracic spine. L scapula is tightly bound to the ribcage. There is a moderate Dowager's hump. Moderate forward head. Standing: hips flexed ~10 deg' s. Palpation Assessment Location Three Palpation Location Posterior L shoulder Palpation Findings Tenderness Two Palpation Location Upper shoulder Palpation Findings Muscle Guarding One Palpation Location L side neck Palpation Findings Muscle Guarding Skin Assessment Incisional Assessment Incision Appearance/Comments Unable to assess. Scar covered with waterproof bandage (Aquacil). PT-OP-K Range of Motion Start: 09/19/17 15:44 Freq: Status: Active Protocol: Document 12/05/17 11:15 LRN (Rec: 12/05/17 12:46 LRN [id number]) Shoulder Goniometric Range of Motion Shoulder Measured in Degrees Left Active Testing Position Sitting Flexion 144 Abduction 147 Left Testing Position Supine Flexion 160 Abduction 155 External Rotation at 90 degrees 45 Abduction Internal Rotation 25 PT-OP-Q Treatments Start: 09/19/17 15:44 Freq: Status: Active Protocol: Document 12/26/17 11:18 LRN (Rec: 12/26/17 12:46 LRN [id number]) Cardio Equipment Upper Body Ergometer (UBE) Duration (Minutes) 10 Height 7 Therapeutic Exercises Supine Exercises 12 Supine Exercise Name scap protraction Resistance 5# Reps/Minutes 3x10 Sidelying Exercises 2 Sidelying Exercise Name Shoulder AB to max tolerance Side left Resistance 2#, 1# Reps/Minutes 10x1, 10x2 respectively 1 Sidelying Exercise Name Shoulder ER/IR Side left Resistance 3# Reps/Minutes 10x3 Sitting Exercises 2 Sitting Exercise Name Shoulder AB Press Side left Resistance 2# Reps/Minutes 15x2 Comments Assist for end-range motion Standing Exercises 6 Standing Exercise Name Shoulder IR Side left Resistance Lev 3 Equipment Used T-Band Reps/Minutes 10x3 5 Standing Exercise Name Scapular retraction/depression (lat pull) Side bilateral Resistance Lev 3 Equipment Used T-Band Reps/Minutes 10x3 4 Standing Exercise Name Scapular Depression Side bilateral Equipment Used Lev 2 Reps/Minutes 10' Comments Extra training time needed to get scapular depression 3 Standing Exercise Name Shoulder protraction pushing against wall Equipment Used T-Band Reps/Minutes 10x3 Self-Care/Home Management Treatment Education Patient Education Home Exercise Program Activities Self-Care/Home Management Activities Reviewed and updated all of pt 's written home ex's that he typed up. Issued 2 White straps to do scapular retraction ex. PT-OP-R Modalities Start: 09/19/17 15:44 Freq: Status: Active Protocol: Document 12/26/17 11:18 LRN (Rec: 12/26/17 12:46 LRN [id number]) Hot Pack/Cold Pack Treatment Cold Pack Location L shoulder Patient Position Supine Treatment Duration (minutes) 10 Patient Tolerance Good Comments Cold pack at end of treatment. PT-OP-T Assessment and Plan Start: 09/19/17 15:44 Freq: Status: Active Protocol: Document 12/26/17 11:18 LRN (Rec: 12/26/17 12:46 LRN [id number]) Physical Therapy Assessment Impairments Impairments Activity Tolerance Functional Activities ROM Strength Other Concerns Age Related Concerns Hearing difficulty, pictures with exercises. Barriers to Rehabilitation 65+ Age Goals Eight Impairment Lacks appropriate HEP Supply Chain Coordinator Goal (LTG) Pt will be independent in a HEP LTG Duration 01/02/18 Six Impairment Decreased function Fdc Goal (LTG) UE QuickDASH Score no more than 20% impairment. LTG Duration 12/23/17 Five Impairment Decreased functional use of L shoulder LTG Duration GOAL MET Four Impairment Decreased L shoulder IR LTG Duration 11/28/17: GOAL MET. Three Impairment Decreased L shoulder strength Short Term Goal (STG) Per protocol: Pt able to lift light weights (1-3#) in scapular plane for flex. PRECAUTION: No lifting > 6# or sudden lifting/pushing. STG Duration 12/05/17 Supply Chain Coordinator Goal (LTG) Proper scapulohumeral rhythm with lifting of L arm. LTG Duration 01/02/18 Two Impairment Decreased L shoulder AROM Fdc Goal (LTG) Shoulder AROM up to 120 deg's and ER of 30 deg's with proper shoulder mechanics. LTG Duration 01/02/18 One Impairment Decreased L shoulder PROM. Pt to be in sling 6-8 wks. STG Duration GOAL MET. LTG Duration 12/05/17: GOAL MET Assessment Summary Assessment Pt is actually ~14 weeks s/p L TSA tomorrow. He is limited as expected with L shoulder ER and has end-range tightness with flex and AB Physical Therapy Plan Frequency and Duration Frequency of Treatment 2x/Week Duration of Treatment 10 Weeks Plan of Care Start Date 09/19/17 Plan of Care End Date 12/23/17 Therapeutic Interventions Therapeutic Interventions Home Exercise Program Manual Therapy Neuromuscular Re-education Patient/Caregiver Education Self-Care/Home Management Therapeutic Exercises Modalities Cold Pack/Ice Massage Next Visit Focus/Plan Next Visit Plan Recheck pt's strength in scapular plane (lifting 1-3# weight), and Proper scapulohumeral rhythm with lifting of L arm, and ROM.
--- NOTE | 2018-01-02 14:31 | PT.OTN ---
Current Diagnoses Primary osteoarthritis, left shoulder (01/02/18) Physical Therapy Treatment Note PT-OP-A Visit Information Start: 09/19/17 15:44 Freq: Status: Active Protocol: Document 01/02/18 11:15 LRN (Rec: 01/02/18 12:49 LRN [id number]) Out-Patient Physical Therapy Visit Information Visit Information Visit Type Progress Note Visit Note Visit Start Time 11:15 Visit Stop Time 12:05 Total Visit Minutes 50 Visit Number 18 Number of CLOTH CHECKER Visits 0 Evaluation Information Evaluation Date 09/19/17 PT-OP-C Subjective Start: 09/19/17 15:44 Freq: Status: Active Protocol: Document 01/02/18 11:15 LRN (Rec: 01/02/18 12:49 LRN [id number]) OP-PT Subjective Patient Comments Patient Comments Has been a little sore on the top part of the L shoulder. Able to reach top shelf in bathroom. Not very strong. Patient Questionnaires Quick Dash- Upper Extremity Quick Dash UE Score 13.63 Quick Dash UE Impairment 1 to 19% Impaired (Score 1-19) PT-OP-J Posture/Palpation/Skin Start: 09/19/17 15:44 Freq: Status: Active Protocol: Document 09/19/17 10:40 LRN (Rec: 09/20/17 10:28 LRN [id number]) Posture Evaluation Position Sitting Evaluation View Anterior Head/C-Spine Posture Neutral Position Scapula Posture (L) Depressed Comments Posture Comments Sitting: Pt sits slumped with straightened thoracic spine. L scapula is tightly bound to the ribcage. There is a moderate Dowager's hump. Moderate forward head. Standing: hips flexed ~10 deg' s. Palpation Assessment Location Three Palpation Location Posterior L shoulder Palpation Findings Tenderness Two Palpation Location Upper shoulder Palpation Findings Muscle Guarding One Palpation Location L side neck Palpation Findings Muscle Guarding Skin Assessment Incisional Assessment Incision Appearance/Comments Unable to assess. Scar covered with waterproof bandage (Aquacil). PT-OP-K Range of Motion Start: 09/19/17 15:44 Freq: Status: Active Protocol: Document 12/05/17 11:15 LRN (Rec: 12/05/17 12:46 LRN [id number]) Shoulder Goniometric Range of Motion Shoulder Measured in Degrees Left Active Testing Position Sitting Flexion 144 Abduction 147 Left Testing Position Supine Flexion 160 Abduction 155 External Rotation at 90 degrees 45 Abduction Internal Rotation 25 PT-OP-Q Treatments Start: 09/19/17 15:44 Freq: Status: Active Protocol: Document 01/02/18 11:15 LRN (Rec: 01/02/18 12:49 LRN [id number]) Cardio Equipment Upper Body Ergometer (UBE) Duration (Minutes) 10 Height 7 Therapeutic Exercises Supine Exercises 11 Supine Exercise Name Assisted L shoulder AB with stretch 10 Supine Exercise Name Lat pull down with end-range flex stretch Side bilateral Resistance L3 T-Band Reps/Minutes 10x3 Sitting Exercises 3 Sitting Exercise Name Elbow flexion Side bilateral Resistance 5# Reps/Minutes 10x3 2 Sitting Exercise Name Shoulder AB Press Side left Resistance 2# Reps/Minutes 15x2 Comments Assist for end-range motion Standing Exercises 4 Standing Exercise Name Scapular Depression Side bilateral Equipment Used Lev 2 Reps/Minutes 10' Comments Extra training time needed to get scapular depression 2 Standing Exercise Name Shoulder AB (Chauncey arm swings) Side bilateral Resistance 2# Reps/Minutes 10x3 1 Standing Exercise Name Shoulder press up Side bilateral Resistance 2# Reps/Minutes 9x3 Manual Therapy Treatment Manual Techniques 1 Type Assisting with proper scapulohumeral rhythm during shoulder AB PT-OP-R Modalities Start: 09/19/17 15:44 Freq: Status: Active Protocol: Document 01/02/18 11:15 LRN (Rec: 01/02/18 12:49 LRN [id number]) Hot Pack/Cold Pack Treatment Cold Pack Location L shoulder Patient Position Supine Treatment Duration (minutes) 10 Patient Tolerance Good Comments Cold pack at end of treatment. PT-OP-T Assessment and Plan Start: 09/19/17 15:44 Freq: Status: Active Protocol: Document 01/02/18 11:15 LRN (Rec: 01/02/18 12:49 LRN [id number]) Physical Therapy Assessment Impairments Impairments Activity Tolerance Functional Activities ROM Strength Other Concerns Age Related Concerns Hearing difficulty, pictures with exercises. Barriers to Rehabilitation 65+ Age Goals Eight Impairment Lacks appropriate HEP Shelter Goal (LTG) Pt will be independent in a HEP LTG Duration 01/02/18 Six Impairment Decreased function Post Anesthesia Care Unit Nurse Goal (LTG) UE QuickDASH Score no more than 20% impairment. LTG Duration 01/02/18: GOAL MET. Score is 13% disability Five Impairment Decreased functional use of L shoulder LTG Duration GOAL MET Four Impairment Decreased L shoulder IR LTG Duration 11/28/17: GOAL MET. Three Impairment Decreased L shoulder strength Short Term Goal (STG) Per protocol: Pt able to lift light weights (1-3#) in scapular plane for flex. PRECAUTION: No lifting > 6# or sudden lifting/pushing. STG Duration 02/10/18 Shelter Goal (LTG) Proper scapulohumeral rhythm with lifting of L arm. LTG Duration 02/10/18 Two Impairment Decreased L shoulder AROM Shelter Goal (LTG) Shoulder AROM up to 120 deg's and ER of 30 deg's with proper shoulder mechanics. LTG Duration 01/02/18 One Impairment Decreased L shoulder PROM. Pt to be in sling 6-8 wks. STG Duration GOAL MET. LTG Duration 12/05/17: GOAL MET Progress Towards Goals Progress Comments Pt L shoulder strength and function is improving as expected. His ROM goal has been met. Assessment Summary Assessment Pt is 16 weeks tomorrow s/p L TSA tomorrow. He has achieved the ROM goals per protocol for flexion and ER. He is able to reach overhead but lacks strength with the functional activities he would like to participate in (home projects). He would like to continue to the end of Jan with therapy but I feel he will reach his functional goal before that time. The pt's dysfunctional scapulohumeral rhythm is present with overhead activities and with lifting of light weights. This might improve with futher therapy. Since the pt has been very consistent with his home program I will work towards weening the pt to a home program in the next 2-7 weeks. Physical Therapy Plan Frequency and Duration Frequency of Treatment 1x/Week Duration of Treatment 7 Weeks Plan of Care Start Date 12/23/17 Plan of Care End Date 02/10/18 Therapeutic Interventions Therapeutic Interventions Home Exercise Program Manual Therapy Neuromuscular Re-education Patient/Caregiver Education Self-Care/Home Management Therapeutic Exercises Modalities Cold Pack/Ice Massage Next Visit Focus/Plan Next Note Type Treatment Note Next Visit Plan Progress shoulder strengthening with proper scapulohumeral rhythm, focus on independence and safety with gym/home program.
--- NOTE | 2018-01-02 14:31 | PT.OPPOC ---
Current Diagnoses Primary osteoarthritis, left shoulder (01/02/18) Provider Visit Care Team Role Provider Type Chemo Lindquist MD Primary Care Provider Physician Specialty: Internal Medicine Address: [address] [place] [address], [id number] Email: Cash Andujar PA-C Attending Provider [facility] Unit Lead Psychologist Specialty: Orthopedic Surgery Address: [address] [place] [address], [id number] Email: [email or web address] Plan Of Care PT-OP-T Assessment and Plan Start: 09/19/17 15:44 Freq: Status: Active Protocol: Document 01/02/18 11:15 LRN (Rec: 01/02/18 12:49 LRN [id number]) Physical Therapy Assessment Impairments Impairments Activity Tolerance Functional Activities ROM Strength Other Concerns Age Related Concerns Hearing difficulty, pictures with exercises. Barriers to Rehabilitation 65+ Age Goals Eight Impairment Lacks appropriate HEP Retirement Goal (LTG) Pt will be independent in a HEP LTG Duration 01/02/18 Six Impairment Decreased function Retirement Goal (LTG) UE QuickDASH Score no more than 20% impairment. LTG Duration 01/02/18: GOAL MET. Score is 13% disability Five Impairment Decreased functional use of L shoulder LTG Duration GOAL MET Four Impairment Decreased L shoulder IR LTG Duration 11/28/17: GOAL MET. Three Impairment Decreased L shoulder strength Short Term Goal (STG) Per protocol: Pt able to lift light weights (1-3#) in scapular plane for flex. PRECAUTION: No lifting > 6# or sudden lifting/pushing. STG Duration 02/10/18 Retirement Goal (LTG) Proper scapulohumeral rhythm with lifting of L arm. LTG Duration 02/10/18 Two Impairment Decreased L shoulder AROM Retirement Goal (LTG) Shoulder AROM up to 120 deg's and ER of 30 deg's with proper shoulder mechanics. LTG Duration 01/02/18 One Impairment Decreased L shoulder PROM. Pt to be in sling 6-8 wks. STG Duration GOAL MET. LTG Duration 12/05/17: GOAL MET Progress Towards Goals Progress Comments Pt L shoulder strength and function is improving as expected. His ROM goal has been met. Assessment Summary Assessment Pt is 16 weeks tomorrow s/p L TSA tomorrow. He has achieved the ROM goals per protocol for flexion and ER. He is able to reach overhead but lacks strength with the functional activities he would like to participate in (home projects). He would like to continue to the end of Jan with therapy but I feel he will reach his functional goal before that time. The pt's dysfunctional scapulohumeral rhythm is present with overhead activities and with lifting of light weights. This might improve with futher therapy. Since the pt has been very consistent with his home program I will work towards weening the pt to a home program in the next 2-7 weeks. Physical Therapy Plan Frequency and Duration Frequency of Treatment 1x/Week Duration of Treatment 7 Weeks Plan of Care Start Date 12/23/17 Plan of Care End Date 02/10/18 Therapeutic Interventions Therapeutic Interventions Home Exercise Program Manual Therapy Neuromuscular Re-education Patient/Caregiver Education Self-Care/Home Management Therapeutic Exercises Modalities Cold Pack/Ice Massage Next Visit Focus/Plan Next Note Type Treatment Note Next Visit Plan Progress shoulder strengthening with proper scapulohumeral rhythm, focus on independence and safety with gym/home program. Plan of Care Dates Plan of Care Start Date 12/23/17 Plan of Care End Date 02/10/18 Please Sign and Return: I have reviewed this Plan of Care and certify that the skilled therapy services above are required to meet the patient?s needs. Physician Signature Date Printed Name and Credentials Clinical Instructor Signature Printed Name and Credentials
--- NOTE | 2018-01-17 14:07 | PT.OTN ---
Current Diagnoses Primary osteoarthritis, left shoulder (01/17/18) Physical Therapy Treatment Note PT-OP-A Visit Information Start: 09/19/17 15:44 Freq: Status: Active Protocol: Document 01/17/18 11:17 LRN (Rec: 01/17/18 12:16 LRN [id number]) Out-Patient Physical Therapy Visit Information Visit Information Visit Type Treatment Note Visit Note Visit Start Time 11:17 Visit Stop Time 12:07 Total Visit Minutes 50 Visit Number 19 Number of ARTS AND CRAFTS TEACHER Visits 0 Evaluation Information Evaluation Date 09/19/17 PT-OP-C Subjective Start: 09/19/17 15:44 Freq: Status: Active Protocol: Document 01/17/18 11:17 LRN (Rec: 01/17/18 12:16 LRN [id number]) OP-PT Subjective Patient Comments Patient Comments Will be painting and sanding with R arm. Was able to do some gardening work (hedge trimming) was gas leak tester than I thought it would be. PT-OP-J Posture/Palpation/Skin Start: 09/19/17 15:44 Freq: Status: Active Protocol: Document 09/19/17 10:40 LRN (Rec: 09/20/17 10:28 LRN [id number]) Posture Evaluation Position Sitting Evaluation View Anterior Head/C-Spine Posture Neutral Position Scapula Posture (L) Depressed Comments Posture Comments Sitting: Pt sits slumped with straightened thoracic spine. L scapula is tightly bound to the ribcage. There is a moderate Dowager's hump. Moderate forward head. Standing: hips flexed ~10 deg' s. Palpation Assessment Location Three Palpation Location Posterior L shoulder Palpation Findings Tenderness Two Palpation Location Upper shoulder Palpation Findings Muscle Guarding One Palpation Location L side neck Palpation Findings Muscle Guarding Skin Assessment Incisional Assessment Incision Appearance/Comments Unable to assess. Scar covered with waterproof bandage (Aquacil). PT-OP-K Range of Motion Start: 09/19/17 15:44 Freq: Status: Active Protocol: Document 12/05/17 11:15 LRN (Rec: 12/05/17 12:46 LRN [id number]) Shoulder Goniometric Range of Motion Shoulder Measured in Degrees Left Active Testing Position Sitting Flexion 144 Abduction 147 Left Testing Position Supine Flexion 160 Abduction 155 External Rotation at 90 degrees 45 Abduction Internal Rotation 25 PT-OP-Q Treatments Start: 09/19/17 15:44 Freq: Status: Active Protocol: Document 01/17/18 11:17 LRN (Rec: 01/17/18 12:16 LRN [id number]) Cardio Equipment Upper Body Ergometer (UBE) Duration (Minutes) 10 Height 7 Therapeutic Exercises Supine Exercises 12 Supine Exercise Name scap protraction Resistance 6# Reps/Minutes 10x2 Comments Max lift wgt met. Assist with guiding of movement 11 Supine Exercise Name Assisted L shoulder AB with stretch Reps/Minutes 0 10 Supine Exercise Name Lat pull down with end-range flex stretch Side bilateral Resistance L3 T-Band Reps/Minutes 0 1 Supine Exercise Name shoulder flexion end-range stretch Side left Equipment Used wand Reps/Minutes 0 Sidelying Exercises 2 Sidelying Exercise Name Shoulder AB to max tolerance Side left Resistance 2# Reps/Minutes 10x3 1 Sidelying Exercise Name Shoulder ER/IR Side left Resistance 3# Reps/Minutes 10x3 Sitting Exercises 3 Sitting Exercise Name Elbow flexion Side bilateral Resistance 6#,5# Reps/Minutes 10x, 10x2 respectively Comments Max wgt reached (6#) 2 Sitting Exercise Name Shoulder AB Press Side left Resistance 2# Reps/Minutes 15x2 Comments Assist for end-range motion Standing Exercises 6 Standing Exercise Name Shoulder IR Side left Resistance Lev 3 Equipment Used T-Band Reps/Minutes 0 5 Standing Exercise Name Scapular retraction/depression (lat pull) Side bilateral Resistance Lev 3 Equipment Used T-Band Reps/Minutes 0 4 Standing Exercise Name Scapular Depression Side bilateral Resistance 20# Equipment Used Cable Column Reps/Minutes 15x Comments Some training needed to get scapular depression 3 Standing Exercise Name Shoulder protraction pushing against wall Equipment Used T-Band Reps/Minutes 0 2 Standing Exercise Name Shoulder AB (Chauncey arm swings) Side bilateral Resistance 2#, 1# Reps/Minutes 10x, 10x2 respectively 1 Standing Exercise Name Shoulder press up Side bilateral Resistance 2# Reps/Minutes 10x3 Manual Therapy Treatment Manual Techniques 1 Type Assisting with proper scapulohumeral rhythm during shoulder AB Reps/Duration 0 PT-OP-R Modalities Start: 09/19/17 15:44 Freq: Status: Active Protocol: Document 01/17/18 11:17 LRN (Rec: 01/17/18 12:16 LRN [id number]) Hot Pack/Cold Pack Treatment Cold Pack Location L shoulder Patient Position Supine Treatment Duration (minutes) 10 Patient Tolerance Good Comments Cold pack at end of treatment. PT-OP-T Assessment and Plan Start: 09/19/17 15:44 Freq: Status: Active Protocol: Document 01/17/18 11:17 LRN (Rec: 01/17/18 12:16 LRN [id number]) Physical Therapy Assessment Impairments Impairments Activity Tolerance Functional Activities ROM Strength Other Concerns Age Related Concerns Hearing difficulty, pictures with exercises. Barriers to Rehabilitation 65+ Age Goals Eight Impairment Lacks appropriate HEP Mcfp Goal (LTG) Pt will be independent in a HEP LTG Duration 02/02/18 Six Impairment Decreased function Mcfp Goal (LTG) UE QuickDASH Score no more than 20% impairment. LTG Duration 01/02/18: GOAL MET. Score is 13% disability Five Impairment Decreased functional use of L shoulder LTG Duration GOAL MET Four Impairment Decreased L shoulder IR LTG Duration 11/28/17: GOAL MET. Three Impairment Decreased L shoulder strength Short Term Goal (STG) Per protocol: Pt able to lift light weights (1-3#) in scapular plane for flex. PRECAUTION: No lifting > 6# or sudden lifting/pushing. STG Duration 02/10/18 Children'S Lunchroom Supervisor Goal (LTG) Proper scapulohumeral rhythm with lifting of L arm. LTG Duration 02/10/18 Two Impairment Decreased L shoulder AROM Children'S Lunchroom Supervisor Goal (LTG) Shoulder AROM up to 120 deg's and ER of 30 deg's with proper shoulder mechanics. LTG Duration 01/02/18 GOAL MET One Impairment Decreased L shoulder PROM. Pt to be in sling 6-8 wks. STG Duration GOAL MET. LTG Duration 12/05/17: GOAL MET Progress Towards Goals Progress Comments Improved tolerance to weight training with L UE. Assessment Summary Assessment Pt is 18 weeks today, s/p L TSA. His strength appears to be improveing per pt report. He notes functional weakness with reaching. He will be trying some functional activities (home projects) soon, and will be better able to identify areas of weakness. The pt has a good chance of reaching his functional goals before the end of the month due to improvement in strength . The pt's dysfunctional scapulohumeral rhythm is present with overhead activities and with lifting of light weights. I will work towards weening the pt to a home program in the next 2-4 weeks. Physical Therapy Plan Frequency and Duration Frequency of Treatment 1x/Week Duration of Treatment 7 Weeks Plan of Care Start Date 12/23/17 Plan of Care End Date 02/10/18 Therapeutic Interventions Therapeutic Interventions Home Exercise Program Manual Therapy Neuromuscular Re-education Patient/Caregiver Education Self-Care/Home Management Therapeutic Exercises Modalities Cold Pack/Ice Massage Next Visit Focus/Plan Next Note Type Treatment Note Next Visit Plan Progress L shoulder strengthening with proper scapulohumeral rhythm, focus on independence and safety with gym program & monitor HEP .
--- NOTE | 2018-01-23 15:43 | PT.OTN ---
Current Diagnoses Primary osteoarthritis, left shoulder (01/23/18) Physical Therapy Treatment Note PT-OP-A Visit Information Start: 09/19/17 15:44 Freq: Status: Active Protocol: Document 01/23/18 10:30 LRN (Rec: 01/23/18 11:15 LRN [id number]) Out-Patient Physical Therapy Visit Information Visit Information Visit Type Treatment Note Visit Note Visit Start Time 10:30 Visit Stop Time 11:20 Total Visit Minutes 50 Visit Number 20 Number of POLICY CHANGE CLERK Visits 0 Evaluation Information Evaluation Date 09/19/17 PT-OP-C Subjective Start: 09/19/17 15:44 Freq: Status: Active Protocol: Document 01/23/18 10:30 LRN (Rec: 01/23/18 11:15 LRN [id number]) OP-PT Subjective Patient Comments Patient Comments Was able to do sanding with his arms. Patient Questionnaires Quick Dash- Upper Extremity Quick Dash UE Score 0 Quick Dash UE Impairment 0% Impaired (Score 0) PT-OP-J Posture/Palpation/Skin Start: 09/19/17 15:44 Freq: Status: Active Protocol: Document 09/19/17 10:40 LRN (Rec: 09/20/17 10:28 LRN [id number]) Posture Evaluation Position Sitting Evaluation View Anterior Head/C-Spine Posture Neutral Position Scapula Posture (L) Depressed Comments Posture Comments Sitting: Pt sits slumped with straightened thoracic spine. L scapula is tightly bound to the ribcage. There is a moderate Dowager's hump. Moderate forward head. Standing: hips flexed ~10 deg' s. Palpation Assessment Location Three Palpation Location Posterior L shoulder Palpation Findings Tenderness Two Palpation Location Upper shoulder Palpation Findings Muscle Guarding One Palpation Location L side neck Palpation Findings Muscle Guarding Skin Assessment Incisional Assessment Incision Appearance/Comments Unable to assess. Scar covered with waterproof bandage (Aquacil). PT-OP-K Range of Motion Start: 09/19/17 15:44 Freq: Status: Active Protocol: Document 01/23/18 10:30 LRN (Rec: 01/23/18 15:43 LRN [id number]) Shoulder Goniometric Range of Motion Shoulder Measured in Degrees Left Active Testing Position Sitting Flexion 160 Left Testing Position Supine Flexion 160 External Rotation at 90 degrees 50 Abduction PT-OP-Q Treatments Start: 09/19/17 15:44 Freq: Status: Active Protocol: Document 01/23/18 10:30 LRN (Rec: 01/23/18 11:15 LRN [id number]) Cardio Equipment Upper Body Ergometer (UBE) Duration (Minutes) 10 Height 7 Gym Equipment Cable Column (Body Solid) Lat Pull Down Details Straight arm Resistance 10# Reps/Time 10x3 Therapeutic Exercises Supine Exercises 12 Supine Exercise Name Chest press with scapular protraction at end Resistance 6# Reps/Minutes 10x3 Comments Max lift wgt met. Assist with guiding of movement Sidelying Exercises 2 Sidelying Exercise Name Shoulder AB to max tolerance Side left Resistance 2# Reps/Minutes 10x3 1 Sidelying Exercise Name Shoulder ER/IR Side left Resistance 3# Reps/Minutes 10x3 Sitting Exercises 3 Sitting Exercise Name Elbow flexion Side bilateral Resistance 6# Reps/Minutes 10x3 Comments Max wgt reached (6#) 2 Sitting Exercise Name Shoulder AB Press Side left Resistance 2# Reps/Minutes 10x3 Comments Assist for end-range motion Standing Exercises 1 Standing Exercise Name Shoulder flex Side bilateral Resistance 3# Reps/Minutes 10x3 Self-Care/Home Management Treatment Education Patient Education Home Exercise Program Activities Self-Care/Home Management Activities Brief discussion of HEP. PT-OP-R Modalities Start: 09/19/17 15:44 Freq: Status: Active Protocol: Document 01/23/18 10:30 LRN (Rec: 01/23/18 11:15 LRN [id number]) Hot Pack/Cold Pack Treatment Cold Pack Location L shoulder Patient Position Supine Treatment Duration (minutes) 10 Patient Tolerance Good Comments Cold pack at end of treatment. PT-OP-T Assessment and Plan Start: 09/19/17 15:44 Freq: Status: Active Protocol: Document 01/23/18 10:30 LRN (Rec: 01/23/18 11:15 LRN [id number]) Physical Therapy Assessment Impairments Impairments ROM Strength Goals Eight Impairment Lacks appropriate HEP Dial Painter Goal (LTG) Pt will be independent in a HEP LTG Duration 02/02/18 GOAL MET on 01/23/18 Six Impairment Decreased function Penitentiary Goal (LTG) UE QuickDASH Score no more than 20% impairment. LTG Duration 01/02/18: GOAL MET. Score is 13% disability Five Impairment Decreased functional use of L shoulder LTG Duration GOAL MET Four Impairment Decreased L shoulder IR LTG Duration 11/28/17: GOAL MET. Three Impairment Decreased L shoulder strength Short Term Goal (STG) Per protocol: Pt able to lift light weights (1-3#) in scapular plane for flex. PRECAUTION: No lifting > 6# or sudden lifting/pushing. STG Duration 02/10/18 GOAL MET 01/23/18 Penitentiary Goal (LTG) Proper scapulohumeral rhythm with lifting of L arm. LTG Duration 02/10/18 GOAL MOSTLY MET Two Impairment Decreased L shoulder AROM Short Term Goal (STG) oa Penitentiary Goal (LTG) Shoulder AROM up to 120 deg's and ER of 30 deg's with proper shoulder mechanics. LTG Duration 01/02/18 GOAL MET One Impairment Decreased L shoulder PROM. Pt to be in sling 6-8 wks. STG Duration GOAL MET. LTG Duration 12/05/17: GOAL MET Assessment Summary Assessment Pt has met all goals. He has some limitation in L shoulder ROM, scapulohumeral rhythm and strength as expected, but he has gained his functional strength and has been educated in a self care HEP. The pt is ready for discharge from therapy. Thank you for your referral. Physical Therapy Plan Next Visit Focus/Plan Next Note Type Discharge Summary Next Visit Plan Pt has met all goals and is being discharged to his HEP.
== END 2018-02-23 12:37 ==
LOC: PHYS 10:30
PROVIDERS: PCP Internal Medicine; Visit Provider Physician Assistant
DX: M19.012 Primary osteoarthritis, left shoulder (principal)
CPT/HCPCS: 97010; 97110; 97140; 97162; 97535

== ENCOUNTER → 2018-05-04 08:35 | Outpatient (CLI) | payer MEDICARE, OTHER, SELFPAY ==
[2018-05-04 09:12] LABS: Hemoglobin A1C% w Est Avg Glu 6.8 % (4.0-6.0)
[2018-05-04 09:37] LABS: BUN Creatinine Ratio 20.9 (6-22); Blood Urea Nitrogen 23 mg/dL (9-20); Calcium 9.5 mg/dL (8.4-10.2); Carbon Dioxide 28 mmol/L (22-32); Chloride 101 mmol/L (98-107); Estimated Glomerular Filt Rate > 60.0 mL/min (>60); Glucose 135 mg/dL (80-110); HEMOLYSIS < 15 (0-50); Potassium 4.6 mmol/L (3.4-5.1); Sodium 140 mmol/L (137-145)
== END ==
PROVIDERS: PCP Internal Medicine; Visit Provider Internal Medicine
DX: E11.9 Type 2 diabetes mellitus without complications (principal); I10 Essential (primary) hypertension
CPT/HCPCS: 36415; 80048; 83036

== ENCOUNTER → 2018-08-21 09:24 | Outpatient (CLI) | payer MEDICARE, OTHER, SELFPAY ==
--- NOTE | 2018-08-21 | DI.ECHO.S_ITS ---
[facility]---------+ [facility] +---------+ : : [address] : [address] : : : : [phone] : : : : Phone: [phone] +---------+ Echocardiogram Report + + :Name: DONAVAN CAMP V Study Date: 08/21/2018 Height: 64 in : :[facility] Exam Location: [facility] Weight: 176 lb : : Gender: Male BSA: 1.9 m2 : :: 1935 Age: 82 yrs BP: 120/80 mmHg: :Reason For Study: Post Mitral valve reapair : :Ordering Physician: Tabitha : :Rboerto Performed By: Jocleine Page : + + Interpretation Summary The left ventricle is normal in size. The ejection fraction is estimated to be 50-55%. There has been no significant change in LV EF since the previous study. E/E' med: 30.6. Previously it was 25.2. The right ventricle is mildly dilated. Right ventricular systolic function is mildly reduced. An annuloplasty ring is noted in the mitral position. No significant mitral valve stenosis. There is trace mitral regurgitation. There is mild tricuspid regurgitation. Compared to the prior echo exam, there has been no change in TR severity. The right ventricular systolic pressure is estimated to be at least 16 mmHg based on an estimated right atrial pressure of 3 mm Hg. Procedure: A two-dimensional transthoracic echocardiogram with color flow and Doppler was performed. The study quality was technically adequate. Comparison is made with the echocardiogram of 09/02/2014. The heart rate ranged between 53-71 bpm during the study. The patient was in atrial fibrillation with heart rates between 53-71 bpm during the exam. The patient had a bundle branch block rhythm during the exam. Left Ventricle: The left ventricle is normal in size. Proximal septal thickening is noted. There is no echo evidence for significant left ventricular outflow tract obstruction. The ejection fraction is estimated to be 50-55%. There has been no significant change since the previous study. Septal motion is consistent with conduction abnormality. E/E' med: 30.6. Right Ventricle: The right ventricle is mildly dilated. Right ventricular systolic function is mildly reduced. Atria: The left atrium is moderately dilated. The left atrium has mildly increased in size since the prior echo exam. Right atrial size is normal. There is no Doppler evidence for an interatrial shunt. Mitral Valve: An annuloplasty ring is noted in the mitral position. The mitral valve mean gradient is 4.7 mmHg. No significant mitral valve stenosis. There is trace mitral regurgitation. Compared to the prior echo study, there has been no change in the severity of mitral regurgitation. Aortic Valve: The aortic valve is trileaflet. The aortic valve opens well. The aortic valve is slightly calcified. There is no aortic valve stenosis. There is trace aortic regurgitation. Tricuspid Valve: The tricuspid valve is normal. There is mild tricuspid regurgitation. The right ventricular systolic pressure is estimated to be at least 16 mmHg based on an estimated right atrial pressure of 3 mm Hg. Compared to the prior echo exam, there has been no change in TR severity. Pulmonic Valve: The pulmonic valve is not well seen, but is grossly normal. There is mild pulmonic regurgitation. Great Vessels: The aortic root is normal size. The ascending aorta is normal in size. The pulmonary artery is not well visualized, but is probably normal size. The IVC is of normal diameter and collapses greater than 50% with a sniff. This suggests a low right atrial pressure of 3 mm Hg. Pericardium/ Pleura There is no pericardial effusion. There is no pleural effusion. MMode/2D Measurements & Calculations LVIDd: 4.8 cm LVOT diam: 2.1 cm LVIDs: 3.2 cm Ao root diam: 3.8 cm FS: 32.6 % asc Aorta Diam: 3.1 cm EPSS: 0.65 cm IVSd: 0.84 cm LVPWd: 0.91 cm LV bingham. diameter/BSA (cm/m^2): 2.6 LV sys. diameter/BSA (cm/m^2): 1.7 LA A2 area: 23.6 cm2 RA long axis: 5.4 cm LA A4 area: 25.4 cm2 RA area: 19.1 cm2 LA length (vol): 5.9 cm RA vol: 57.5 ml LA vol: 86.2 ml RA : 31.0 ml/m2 LA vol index: 46.6 ml/m2 IVC diam: 1.5 cm RVD1 (basal): 4.8 cm TAPSE: 1.8 cm Doppler Measurements & Calculations Ao V2 max: 136.5 cm/sec LVOT Max Enrico: 56.4 cm/sec Ao V2 mean: 88.9 cm/sec LV V1 max P.3 mmHg Ao max P.4 mmHg LV V1 VTI: 13.4 cm Ao mean P.5 mmHg LAURO(I,D): 1.5 cm2 Ao V2 VTI: 32.0 cm LAURO(V,D): 1.4 cm2 sev ratio: 0.42 LAURO indexed to BSA (cm^2/m^2): 0.79 MV E max enrico: 192.3 cm/sec TR max enrico: 176.5 cm/sec MV A max enrico: 93.4 cm/sec TR max P.5 mmHg MV E/A: 2.1 PA V2 max: 47.7 cm/sec Med Peak E' Enrico: 6.3 cm/sec PA V2 mean: 33.8 cm/sec E/E' med: 30.6 PA mean P.50 mmHg Lat Peak E' Enrico: 12.3 cm/sec PA Accel Time: 0.11 sec E/E' lat: 15.6 E/e' average: 23.1 MV dec time: 0.27 sec MV P1/2t: 79.3 msec MVA(VTI): 1.0 cm2 MV V2 mean: 97.0 cm/sec MV P1/2t max enrico: 190.9 cm/sec MV mean P.7 mmHg MVA(P1/2t): 2.8 cm2 MV V2 VTI: 46.6 cm SV(LVOT): 47.0 ml Reading Physician:NATALEE
== END ==
PROVIDERS: PCP Internal Medicine; Visit Provider Internal Medicine Cardiovascular Disease
DX: I07.1 Rheumatic tricuspid insufficiency (principal); I37.1 Nonrheumatic pulmonary valve insufficiency; Z95.2 Presence of prosthetic heart valve
CPT/HCPCS: 93306

== ENCOUNTER → 2020-01-11 08:30 | Outpatient (CLI) | payer MEDICARE, OTHER, SELFPAY ==
[2020-01-11 09:30] LABS: BUN Creatinine Ratio 27.9 (6-22); Blood Urea Nitrogen 31 mg/dL (9-20); Calcium 9.7 mg/dL (8.4-10.2); Carbon Dioxide 29 mmol/L (22-32); Chloride 103 mmol/L (98-107); Estimated Glomerular Filt Rate > 60.0 mL/min (>60); Glucose 149 mg/dL (80-110); HEMOLYSIS < 15 (0-50); Potassium 4.9 mmol/L (3.4-5.1); Sodium 139 mmol/L (137-145)
== END ==
PROVIDERS: PCP Internal Medicine; Referring Provider Internal Medicine; Visit Provider Internal Medicine
DX: E11.9 Type 2 diabetes mellitus without complications (principal); I10 Essential (primary) hypertension
CPT/HCPCS: 36415; 80048; 83036

== ENCOUNTER → 2020-05-22 12:07 | Outpatient (CLI) | payer MEDICARE, OTHER, SELFPAY ==
[2020-05-22 12:53] LABS: Add Manual Diff / Slide Review NO; Basophils Absolute Auto 100 /uL (0-100); Basophils Percent Auto 1.5 % (0-2); Eosinophils Absolute Auto 300 /uL (0-450); Hematocrit 41.5 % (41-53); Lymphocytes Absolute Auto 1800 /uL (1100-4500); Lymphocytes Percent Auto 31.5 % (25-40); Mean Corpuscular HGB Conc 33.8 % (30-36); Mean Corpuscular Hemoglobin 29.9 PG (26-34); Mean Corpuscular Volume 88.3 fL (80-100); Monocytes Absolute Auto 400 /uL (0-900); Monocytes Percent Auto 7.9 % (3-14); Neutrophils Absolute Auto 3000 /uL (1500-7000); Neutrophils Percent Auto 54.1 % (50-75); Platelet Count 168 X10^3/uL (150-400); Red Blood Cell Count 4.69 X10^6/uL (4.5-5.9); Red Cell Distribution Width 14.4 % (11.6-14.8); White Blood Cell Count 5.6 X10^3/uL (4.5-11.0)
[2020-05-22 13:26] LABS: Blood Urea Nitrogen 22 mg/dL (9-20); Calcium 9.5 mg/dL (8.4-10.2); Carbon Dioxide 31 mmol/L (22-32); Chloride 103 mmol/L (98-107); Estimated Glomerular Filt Rate > 60.0 mL/min (>60); Glucose 144 mg/dL (80-110); HEMOLYSIS < 15 (0-50); Potassium 4.4 mmol/L (3.4-5.1); Sodium 138 mmol/L (137-145)
[2020-05-22 13:32] LABS: NT-proBNP (BNP-Adult 18+) 102 pg/mL (<450)
== END ==
PROVIDERS: PCP Internal Medicine; Referring Provider Internal Medicine; Visit Provider Internal Medicine
DX: E11.9 Type 2 diabetes mellitus without complications (principal); R06.00 Dyspnea, unspecified; I10 Essential (primary) hypertension
CPT/HCPCS: 36415; 80048; 83880; 85025

== ENCOUNTER → 2020-06-11 15:58 | Outpatient (CLI) | payer MEDICARE, OTHER, SELFPAY ==
--- NOTE | 2020-06-11 16:01 | DI.ECHO.S_ITS ---
[facility]---------+ [facility] +---------+ : : [address] : : [address] [address] : : : : [phone] : : : : Phone: [phone] +---------+ Echocardiogram Report + + :Name: DONAVAN CAMP V Study Date: 06/11/2020 Height: 67 in : :[facility] ReadingLocation: Weight: 174 lb : : Gender: Male BSA: 1.9 m2 : :: 1935 Age: 84 yrs BP: 142/95 mmHg: :Reason For Study: DYSPNEA : :Ordering Physician: TYREL, : :NATHALIE Performed By: Yu Liu : :Referring: NATHALIE SARAH : + + Interpretation Summary Atrial flutter with variable block. Normal LV size and wall thickness. Normal wall motion and LV systolic function. EF is 55-60%. Mild LA enlargement. Otherwise normal chamber sizes. 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 There is no associated mitral valve dysfunction. Aortic valve leaflets are mildly thickened and calcified. There is aortic sclerosis without stenosis. Compared to prior study 08/21/2018 no changes have occurred. Procedure: A two-dimensional transthoracic echocardiogram with color flow and Doppler was performed. The study quality was technically adequate. Comparison is made with the echocardiogram of 08/21/2018. The heart rate ranged between 54-76 bpm during the study. Left Ventricle: The left ventricle is normal in size. Proximal septal thickening is noted. The ejection fraction is estimated to be 55-60%. Diastolic function could not be accurately assessed due to atrial fibrillation. Right Ventricle: The right ventricle is mildly dilated. Right ventricular systolic function is moderately reduced. Atria: The left atrium is mildly dilated. Right atrial size is normal. There is no Doppler evidence for an interatrial shunt. Mitral Valve: An annuloplasty ring is noted in the mitral position. The mitral valve mean gradient is 3.91 mmHg. There is trace mitral regurgitation. Aortic Valve: The aortic valve is mildly calcified. There is mild aortic valve sclerosis. There is no aortic valve stenosis. No aortic regurgitation is present. Tricuspid Valve: The tricuspid valve is normal in structure and function. There is mild tricuspid regurgitation. The right ventricular systolic pressure is estimated to be at least 21 mmHg based on an estimated right atrial pressure of 3 mm Hg. Pulmonic Valve: The pulmonic valve leaflets are thin and pliable; valve motion is normal. There is mild pulmonic regurgitation. Great Vessels: The aortic root is normal size. The dimensions of the ascending aorta are normal. The IVC is of normal diameter and collapses greater than 50% with a sniff. This suggests a low right atrial pressure of 3 mm Hg. Pericardium/ Pleura There is no pericardial effusion. There is no pleural effusion. MMode/2D Measurements & Calculations LVIDd: 4.1 cm LVOT diam: 2.3 cm LVIDs: 2.7 cm Ao root diam: 3.7 cm FS: 33.2 % asc Aorta Diam: 3.2 cm EPSS: 0.84 cm Ao Arch Diam (Prox Trans): 2.8 cm IVSd: 1.1 cm LVPWd: 0.82 cm LV bingham. diameter/BSA (cm/m^2): 2.1 LV sys. diameter/BSA (cm/m^2): 1.4 LA A2 area: 23.7 cm2 RA long axis: 4.8 cm LA A4 area: 20.2 cm2 RA area: 13.0 cm2 LA length (vol): 5.5 cm RA vol: 29.9 ml LA vol: 73.4 ml RA : 15.7 ml/m2 LA vol index: 38.5 ml/m2 IVC diam: 1.3 cm RVD1 (basal): 4.1 cm TAPSE: 0.87 cm Doppler Measurements & Calculations Ao V2 max: 149.5 cm/sec LVOT Max Enrico: 63.8 cm/sec Ao V2 mean: 104.8 cm/sec LV V1 max P.6 mmHg Ao max P.0 mmHg LV V1 VTI: 13.0 cm Ao mean P.9 mmHg LAURO(I,D): 1.7 cm2 Ao V2 VTI: 31.7 cm LAURO(V,D): 1.8 cm2 sev ratio: 0.41 LAURO indexed to BSA (cm^2/m^2): 0.88 MV E max enrico: 163.8 cm/sec TR max enrico: 211.7 cm/sec MV A max enrico: 52.9 cm/sec TR max P.9 mmHg MV E/A: 3.1 PA V2 max: 49.0 cm/sec Med Peak E' Enrico: 6.9 cm/sec PA V2 mean: 36.5 cm/sec E/E' med: 23.8 PA mean P.58 mmHg Lat Peak E' Enrico: 8.9 cm/sec PA pr(Accel): 34.5 mmHg E/E' lat: 18.4 E/e' average: 21.1 MV dec time: 0.22 sec MVA(VTI): 1.3 cm2 MV V2 mean: 90.1 cm/sec SV(LVOT): 53.3 ml MV mean P.9 mmHg MV V2 VTI: 41.9 cm Electronically signed by: Jazmín Thomson M.D. on Reading Physician:06/13/2020 03:29 AM
== END ==
PROVIDERS: PCP Internal Medicine; Referring Provider Internal Medicine; Visit Provider Internal Medicine
DX: I08.2 Rheumatic disorders of both aortic and tricuspid valves (principal); R06.00 Dyspnea, unspecified
CPT/HCPCS: 93306

== ENCOUNTER → 2020-07-24 12:52 | Outpatient (CLI) | payer MEDICARE, OTHER, SELFPAY ==
[2020-07-24] MEDS: COVID-19 VACC, Ad26(JANSSEN)/PF 0.5 ML IM (13:14)
== END ==
PROVIDERS: PCP Internal Medicine; Visit Provider Internal Medicine
DX: Z23 Encounter for immunization (principal)
CPT/HCPCS: 0031A; 91303

== ENCOUNTER 2020-10-05 12:35 | Emergency (ER) | payer MEDICARE, OTHER, SELFPAY ==
[2020-10-05 12:50] VITALS: BP 137/89; PULSE 74; RESP 15; TEMP 36.8; O2SAT 96; BMI 29.2
--- NOTE | 2020-10-05 12:56 | ED.FALL ---
HPI - Fall General Chief Complaint: Fall Stated Complaint: Fall, Hit head-Still bleeding Time Seen by Provider: 10/05/20 12:45 Source: patient and family () Mode of arrival: Ambulatory Limitations: no limitations History of Present Illness HPI Narrative: This is a 85-year-old male comes emergency department with ground level fall yesterday. Patient was walking his dog when it pull suddenly and he fell out onto the street striking the left side of his head. Patient does not recall exactly getting into the street. If he had loss of consciousness and was very short cording to his . But he did ask her how he ended up there. He has a small laceration on his forehead adjacent to the brow. He denies headache, no vision changes, no neck or back pain. He denies any chest pain others under the left axilla. He states he landed on his left shoulder. He has some increased pain in his shoulder but states his movement is normal. He has a history of prior shoulder replacement. He denies any weakness, numbness or tingling in his extremities. He denies any pelvic pain. He has an abrasion on his left knee. Patient denies any shortness of breath or chest pain or pressure. He states his INR was 3.7 about a week ago. Patient does not recall being contacted in his was not contacted so he did not stop his Coumadin. He takes this for atrial fibrillation and has had a mitral valve repair. He is also on metoprolol for blood pressure, donepezil for memory, he takes a statin as well as trazodone for sleep and potassium supplementation. Patient denies any allergies. He was still having some mild using from the laceration and went to the walk-in clinic and was referred here. Related Data Home Medications Medication Instructions Recorded Confirmed donepezil 5 mg PO BEDTIME 09/13/17 09/28/18 fenofibrate nanocrystallized 145 mg PO DAILY 09/13/17 09/28/18 [Tricor] metoprolol succinate 12.5 mg PO DAILY 09/13/17 09/28/18 multivitamin with folic acid 1 tab PO DAILY 09/13/17 09/28/18 potassium gluconate 99 mg PO DAILY 09/13/17 09/28/18 simvastatin 40 mg PO QPM 09/13/17 09/28/18 trazodone 50 mg PO BEDTIME 09/13/17 09/28/18 vitamin E 400 unit PO DAILY 09/13/17 09/28/18 warfarin See Rx Instructions .ROUTE .COMPLEX 09/13/17 09/28/18 warfarin See Rx Instructions .ROUTE .COMPLEX 09/13/17 09/28/18 Respironcis Dramstation CPAP #1 ea 09/28/18 Previous Rx's Medication Instructions Recorded oxycodone 5 mg PO Q4-6H PRN #40 tab NS MDD 09/13/17 60 mg Allergies Allergy/AdvReac Type Severity Reaction Status Date / Time No Known Allergies Allergy Uncoded 10/05/20 12:49 Review of Systems Review of Systems ROS Unobtainable: All systems reviewed & are unremarkable except as noted in HPI and below Patient History Medical History Atrial fibrillation and flutter Back pain BPH (benign prostatic hyperplasia) Falls Hearing decreased Hyperlipidemia Hypertension Macular degeneration Mild cognitive impairment Neuropathy Obstructive sleep apnea of adult 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 HEAD: Patient has a small laceration adjacent to the left brow with a large clot adhered after removal patient has a 0.75 cm superficial laceration that does not gape. He also has a punctate laceration just below over the upper cheek. no active bleeding, no raccoon/Nuñez sign. NECK: Nontender, painless range of motion, trachea midline Negative Nexus criteria, there is no mid line tenderness, distracting injury, altered mental status, neuro deficit, recent EtOH. EYES: PERRLA, EOMI ENT: External inspection normal other than above, trachea is midline, TM's are normal no hemotypanum, Nares are clear, no septal hematoma, no dental or oral injury, airway is normal and with normal occlusion, No bony tenderness RESP: Chest is nontender to palpation and has symmetric movement, no ecchymosis, breath sounds are normal no crackles, wheezes or rales CVS: Heart sounds are normal, no murmur noted, No JVD. ABG/GI: Nontender, soft, normal bowel sounds, no distention, no organomegaly, pelvic rock is negative NEURO: Oriented AOx3, neuro is grossly intact, sensation and motor is normal all 4 extremities moving, cranial nerves II through XII are intact, GCS is 15 PSYCH: Normal mood and affect SKIN: Intact except for abrasion on left knee, warm and dry, no crepitus and without decubitus BACK: No CVA tenderness, no vertebral tenderness, no step-off's, no crepitus EXT: Atraumatic, hips are nontender, no pedal edema, normal color and temperature, normal range of motion of extremities with normal tendon exam, 2+ pulses in all four extremities Initial Vital Signs Initial Vital Signs: Vital Signs Temperature 98.2 F 10/05/20 12:50 Pulse Rate 74 10/05/20 12:50 Respiratory Rate 15 10/05/20 12:50 Blood Pressure 137/89 10/05/20 12:50 Pulse Oximetry 96 10/05/20 12:50 Procedures Laceration Repair Laceration 1: Site: face Side (If applicable): right Size (cm): 0.75 Description: linear Depth: simple, single layer Pre-repair: wound explored Skin layer closed with: steri-strips Scores GCS [place] coma scale eye opening: Spontaneous Mary coma scale verbal response: Orientated [place] coma scale motor response: Obey commands Mary coma scale total score: 15 Course Orders Ordered: ED Orders 10/05/20 13:11 CT head/brain wo con Stat XR chest 1V Stat 10/05/20 13:30 Prothrombin Time INR Stat Discontinued Medications Diphtheria/Tetanus/Acell Pertussis (Tet,Diph,Pertuss(Acell),Vac/Pf 0.5 Ml Syringe) 0.5 ml IM .ONCE ONE Stop: 10/05/20 14:14 Last Admin: 10/05/20 14:14 Dose: 0.5 ml Documented by: [email or web address] Tetanus/Diphtheria Toxoids (Tetanus Diphtheria Toxoids 0.5 Ml Vial) 0.5 ml IM .ONCE ONE Stop: 10/05/20 13:13 Last Admin: 10/05/20 14:45 Dose: Not Given Documented by: [email or web address] Reevaluation(s) Reevaluation #1: patient does not appear to have any active bleeding. Time: 14:56 Vital Signs Vital signs: Vital Signs - 8 hr 10/05/20 12:50 10/05/20 13:46 10/05/20 14:00 Temperature 98.2 F Pulse Rate 74 73 68 Respiratory Rate 15 Blood Pressure 137/89 Pulse Oximetry 96 97 96 10/05/20 14:01 10/05/20 14:30 Temperature Pulse Rate 75 69 Respiratory Rate Blood Pressure 126/64 128/73 Pulse Oximetry 96 96 MDM - Fall Lab Data Attestation: I reviewed the patient's lab results. Labs: Lab Results 10/05/20 Range/Units 13:30 PT 77.8 H (10.1-12.7) SECONDS INR 6.5 H* (0.9-1.3) Imaging Data CT scan - head: Radiologist's Impression: [address] [id number] Scan ReportSigned Patient: Nael Lamas VMR#: [id number]: 1935cct:[id number]/Sex: 85 / MDate of Service: 10/05/20Loc: EDAccession Number: [id number] Procedure: CT head/brain wo con Ordering Provider: Jacquelin Kwon D.O. PROCEDURE: CT HEAD/BRAIN WO CON INDICATIONS: fall, on warfarin, hit head TECHNIQUE: Noncontrast 4.5 mm thick angled axial sections acquired from the foramen magnum to the vertex, with coronal and sagittal reformats. For radiation dose reduction, the following was used: automated exposure control, adjustment of mA and/or kV according to patient size. COMPARISON: [facility], CT, HEAD WITHOUT CONTRAST, 05/12/2016, 6:58. [facility], CR, XR CHEST 1V, 10/05/2020, 13:14. [facility], CT, HEAD WITHOUT CONTRAST, 08/23/2016, 1:36. [facility], CT, HEAD WITHOUT CONTRAST, 09/24/2016, 21:54. FINDINGS: Image quality: Excellent. CSF spaces: Basal cisterns are patent. No extra-axial fluid collections. The ventricles are symmetric in size and shape. Brain: No intracranial bleeds or masses. There is cerebral volume loss for age, with resultant ventricular and sulcal prominence. There are periventricular and deep white matter chronic small vessel ischemic changes. There is intracranial internal carotid artery atherosclerosis. Skull and face: There is a mild left forehead/left temporal scalp laceration with hematoma seen. No underlying calvarial fracture is seen. Calvarium and visualized facial bones appear intact, without suspicious lesions. Sinuses: Visualized sinuses and mastoids are clear. IMPRESSION: No acute intracranial hemorrhage is seen. No acute intracranial process is seen. Left forehead/left temporal region scalp laceration/hematoma. Dictated by: Jose Joseph M.D. on 10/05/2020 at 12:52 Approved by: Jose Joseph M.D. on 10/05/2020 at 12:54 Chest x-ray: Radiologist's Impression: Nael Lamas V 85 M [address] [id number] ReportSigned Patient: Nael Lamas VMR#: [id number]: 1935cct:[id number]/Sex: 85 / MDate of Service: 10/05/20Loc: EDAccession Number: [id number] Procedure: XR chest 1V Ordering Provider: Jacquelin Kwon D.O. PROCEDURE: XR CHEST 1V INDICATIONS: left chest/axilla pain TECHNIQUE: One view of the chest was acquired. COMPARISON: [facility], CHEST 2 VIEW, 09/02/2014, 10:10. [facility], CHEST 1 VIEW, 05/12/2016, 7:21. [facility], CHEST 2 VIEW, 05/28/2016, 13:19. FINDINGS: Surgical changes and devices: Sternotomy wires are seen. Left shoulder arthroplasty hardware is partially seen. Lungs and pleura: Lungs are clear. No pleural effusions or pneumothorax. There is elevation of the right hemidiaphragm, which is new compared to 2017. Mediastinum: Mediastinal contours appear normal. Heart size is normal. Bones and chest wall: No suspicious bony lesions. Overlying soft tissues appear unremarkable. IMPRESSION: No abnormality of the left lung or left hemithorax is detected. There is elevation of the right hemidiaphragm. Please correlate with known patient history. If there is strong clinical concern for paralysis of this hemidiaphragm, please consider a dedicated fluoroscopic sniff test for further evaluation. Postoperative changes are seen. Dictated by: Jose Joseph M.D. on 10/05/2020 at 12:25 Approved by: Jose Joseph M.D. on 10/05/2020 at 12:[address] [facility] Narrative Medical decision making narrative: This is an 85-year-old male comes emergency department ground level fall yesterday who had a clot over a laceration that had since stopped using but took quite some time at home yesterday. INR was checked as he is on warfarin and was 6.5. Patient has not had any other obvious signs of bleeding. Head CT was also obtained and is negative. Patient's laceration had the clot removed. It does not gape and only has 1 very tiny spot that is oozing and patient had the area cleansed, Dermabond, Steri-Strips and a small piece of Surgicel placed over the area. Patient was monitored for an additional half an hour and did not have any additional oozing or bleeding and was discharged home with return precautions with patient and . Discussed with patient's the need to hold his Coumadin for the next 2 days. And have his INR rechecked and review the results before restarting his medication. Patient is also to return if he has any new trauma or changes in terms of mental status, severe headaches or other new or concerning changes. Discharge Plan Departure Patient Disposition: Home Clinical Impression: Head injury, Forehead laceration, Supratherapeutic INR Instructions: DI for Laceration Repair-Skin Glue Activity Restrictions/Additional Instructions: Follow-up in 2 days to have your INR rechecked. You need to have the result reviewed before you restart your warfarin. Today her INR is 6.5. You may continue your other home medications as prescribed. Wound Care: Keep wound(s) clean and dry. Wash daily with soap and water only starting tomorrow. Do not use over the counter products (alcohol or peroxide)on the wounds unless instructed by a physician. If wound condition worsens (increased/expanding redness, developing fluid blisters, or worsening pain), either contact your doctor for an urgent re-assessment , or return to the Emergency Department. Return to the Emergency Department for any new or worsening symptoms. You may trim the edges of the Steri-Strips as they start to peel off do not pull for remove them, left them follow up on their own. Return if fever greater than 100.4 Fahrenheit, increased swelling, increasing pain or worsening symptoms such as increased discharge or spreading redness. Severe headaches, lightheadedness or passing out, altered mental status or new confusion, persistent vomiting, new numbness, tingling or weakness, difficulty with walking, new chest pain or shortness of breath or other new or concerning symptoms. Prescriptions: No Action (DME) Respironcis Dramstation CPAP Qty: 1 RF: 0 trazodone 50 mg Tablet 50 mg PO BEDTIME RF: 0 donepezil 10 mg Tablet 5 mg PO BEDTIME RF: 0 simvastatin 40 mg Tablet 40 mg PO QPM RF: 0 warfarin 5 mg Tablet See Rx Instructions .ROUTE .COMPLEX RF: 0 warfarin 5 mg Tablet See Rx Instructions .ROUTE .COMPLEX RF: 0 metoprolol succinate 25 mg Tablet Extended Release 24 Hr 12.5 mg PO DAILY RF: 0 vitamin E 400 unit Capsule 400 unit PO DAILY RF: 0 fenofibrate nanocrystallized [Tricor] 145 mg Tablet 145 mg PO DAILY RF: 0 potassium gluconate 595 mg (99 mg) Tablet 99 mg PO DAILY RF: 0 multivitamin with folic acid 400 mcg Tablet 1 tab PO DAILY RF: 0 oxycodone 5 mg tablet 5 mg PO Q4-6H MDD 60 mg PRN (Reason: pain) Qty: 40 RF: 0 Referrals: Chemo Lindquist MD [Primary Care Provider] -
--- NOTE | 2020-10-05 13:11 | DI.RAD.S_ITS ---
PROCEDURE: XR CHEST 1V INDICATIONS: left chest/axilla pain TECHNIQUE: One view of the chest was acquired. COMPARISON: [facility], CHEST 2 VIEW, 09/02/2014, 10:10. [facility], CHEST 1 VIEW, 05/12/2016, 7:21. [facility], CHEST 2 VIEW, 05/28/2016, 13:19. FINDINGS: Surgical changes and devices: Sternotomy wires are seen. Left shoulder arthroplasty hardware is partially seen. Lungs and pleura: Lungs are clear. No pleural effusions or pneumothorax. There is elevation of the right hemidiaphragm, which is new compared to 2017. Mediastinum: Mediastinal contours appear normal. Heart size is normal. Bones and chest wall: No suspicious bony lesions. Overlying soft tissues appear unremarkable. IMPRESSION: No abnormality of the left lung or left hemithorax is detected. There is elevation of the right hemidiaphragm. Please correlate with known patient history. If there is strong clinical concern for paralysis of this hemidiaphragm, please consider a dedicated fluoroscopic sniff test for further evaluation. Postoperative changes are seen. Dictated by: Jose Joseph M.D. on 10/05/2020 at 12:25 Approved by: Jose Joseph M.D. on 10/05/2020 at 12:27
--- NOTE | 2020-10-05 13:11 | DI.CT.S_ITS ---
PROCEDURE: CT HEAD/BRAIN WO CON INDICATIONS: fall, on warfarin, hit head TECHNIQUE: Noncontrast 4.5 mm thick angled axial sections acquired from the foramen magnum to the vertex, with coronal and sagittal reformats. For radiation dose reduction, the following was used: automated exposure control, adjustment of mA and/or kV according to patient size. COMPARISON: [facility], CT, HEAD WITHOUT CONTRAST, 05/12/2016, 6:58. [facility], CR, XR CHEST 1V, 10/05/2020, 13:14. [facility], CT, HEAD WITHOUT CONTRAST, 08/23/2016, 1:36. [facility], CT, HEAD WITHOUT CONTRAST, 09/24/2016, 21:54. FINDINGS: Image quality: Excellent. CSF spaces: Basal cisterns are patent. No extra-axial fluid collections. The ventricles are symmetric in size and shape. Brain: No intracranial bleeds or masses. There is cerebral volume loss for age, with resultant ventricular and sulcal prominence. There are periventricular and deep white matter chronic small vessel ischemic changes. There is intracranial internal carotid artery atherosclerosis. Skull and face: There is a mild left forehead/left temporal scalp laceration with hematoma seen. No underlying calvarial fracture is seen. Calvarium and visualized facial bones appear intact, without suspicious lesions. Sinuses: Visualized sinuses and mastoids are clear. IMPRESSION: No acute intracranial hemorrhage is seen. No acute intracranial process is seen. Left forehead/left temporal region scalp laceration/hematoma. Dictated by: Jose Joseph M.D. on 10/05/2020 at 12:52 Approved by: Jose Joseph M.D. on 10/05/2020 at 12:54
[2020-10-05 13:46] VITALS: PULSE 73; O2SAT 97
[2020-10-05 13:49] LABS: Prothrombin Time 77.8 SECONDS (10.1-12.7)
[2020-10-05 14:00] VITALS: PULSE 68; O2SAT 96
[2020-10-05 14:01] VITALS: BP 126/64; PULSE 75; O2SAT 96
[2020-10-05 14:02] LABS: INR 6.5 (0.9-1.3)
--- NOTE | 2020-10-05 14:11 | PC.NURSE ---
xray wrong patient entry
[2020-10-05] MEDS: TET,DIPH,PERTUSS(ACELL),VAC/PF 0.5 ML SYRINGE IM (14:14)
[2020-10-05 14:30] VITALS: BP 128/73; PULSE 69; O2SAT 96
== END 2020-10-05 15:06 | disposition home or self-care (01) ==
PROVIDERS: Emergency Provider Emergency Medicine; PCP Internal Medicine
DX: S01.81XA Laceration without foreign body of other part of head, initial encounter (principal); R79.1 Abnormal coagulation profile; W19.XXXA Unspecified fall, initial encounter; Z79.01 Long term (current) use of anticoagulants; Z23 Encounter for immunization
CPT/HCPCS: 36415; 70450; 71045; 85610; 90471; 99283; 99284; 90715

== ENCOUNTER → 2021-04-17 15:20 | Outpatient (CLI) | payer MEDICARE, OTHER, SELFPAY ==
[2021-04-17 16:02] LABS: Hematocrit 42.6 % (41-53); Hemoglobin 14.3 g/dL (13.5-17.5); Mean Corpuscular HGB Conc 33.4 % (30-36); Mean Corpuscular Hemoglobin 29.8 PG (26-34); Mean Corpuscular Volume 89.2 fL (80-100); Platelet Count 181 X10^3/uL (150-400); Red Blood Cell Count 4.78 X10^6/uL (4.5-5.9); Red Cell Distribution Width 14.2 % (11.6-14.8); White Blood Cell Count 5.3 X10^3/uL (4.5-11.0)
[2021-04-17 16:20] LABS: Cholesterol 160 mg/dL (140-199); HDL Cholesterol 59 mg/dL (40-60); LDL Cholesterol Calculated 63 mg/dL (<100); Triglycerides 188 mg/dL (35-150)
== END ==
PROVIDERS: Internal Medicine Cardiovascular Disease; PCP Internal Medicine; Referring Provider Internal Medicine; Visit Provider Internal Medicine
DX: E78.5 Hyperlipidemia, unspecified (principal); I48.91 Unspecified atrial fibrillation
CPT/HCPCS: 36415; 80061; 85027

== ENCOUNTER → 2021-10-18 16:18 | Outpatient (CLI) | payer MEDICARE, OTHER, SELFPAY ==
[2021-10-18 16:38] LABS: COVID19 -Nasal RAPID Negative (Negative)
== END ==
PROVIDERS: PCP Internal Medicine; Visit Provider Physician Assistant
DX: Z20.822 Contact with and (suspected) exposure to COVID-19 (principal)
CPT/HCPCS: 87635

== ENCOUNTER → 2021-11-13 09:52 | Outpatient (CLI) | payer MEDICARE, OTHER, SELFPAY | PROVIDERS: PCP Internal Medicine; Referring Provider Psychiatry & Neurology Neurology; Visit Provider Psychiatry & Neurology Neurology | DX: R41.3 Other amnesia (principal); Z53.20 Procedure and treatment not carried out because of patient's decision for unspecified reasons ==

== ENCOUNTER → 2021-12-18 12:30 | Outpatient (CLI) | payer MEDICARE, OTHER, SELFPAY ==
--- NOTE | 2021-12-18 | DI.MRI.S_ITS ---
PROCEDURE: MR HEAD/BRAIN WO CON INDICATIONS: MEMORY LOSS TECHNIQUE: Non-contrast axial T1 spin echo, axial T2 fast spin echo, sagittal and axial FLAIR, coronal T2 fast spin echo, axial gradient echo, axial diffusion and ADC through the brain. COMPARISON: [facility], CT, CT HEAD/BRAIN WO CON, 10/05/2020, 13:23. FINDINGS: Image quality: Excellent. CSF spaces: Ventricles appear symmetric in size and shape. Basal cisterns are patent. No extra-axial fluid collections. Brain: No intracranial bleeds or mass effects. There is cerebral volume loss for age. There are periventricular and deep white matter chronic small vessel ischemic changes. Brainstem appears normal. Diffusion-weighted images show no acute ischemic insults. No chronic ischemic insults. Normal intravascular flow voids are present. Skull and face: Calvarial bone marrow is normal in signal. Orbits are normal. Note is made of bilateral lens replacements. Sinuses: Sinuses and mastoids are clear. IMPRESSION: Brain MRI within normal limits for age, without a cause of memory loss identified. Note is made of age-appropriate brain parenchymal volume loss and chronic small vessel ischemic changes. Dictated by: Jose Joseph M.D. on 12/18/2021 at 13:29 Approved by: Jose Joseph M.D. on 12/18/2021 at 13:30
== END ==
PROVIDERS: PCP Internal Medicine; Referring Provider Psychiatry & Neurology Neurology; Visit Provider Psychiatry & Neurology Neurology
DX: R41.3 Other amnesia (principal)
CPT/HCPCS: 70551

== ENCOUNTER → 2022-03-23 11:15 | Outpatient (CLI) | payer MEDICARE, OTHER, SELFPAY ==
[2022-03-23 13:00] LABS: INR 2.1 (0.9-1.3)
== END ==
PROVIDERS: PCP Internal Medicine; Referring Provider Internal Medicine; Visit Provider Internal Medicine
DX: I48.21 Permanent atrial fibrillation (principal)
CPT/HCPCS: 36415; 85610

== ENCOUNTER → 2022-11-17 13:23 | Outpatient (CLI) | payer MEDICARE, OTHER, SELFPAY ==
[2022-11-17 14:47] LABS: Add Manual Diff / Slide Review NO; Basophils Absolute Auto 100 /uL (0-100); Basophils Percent Auto 1.9 % (0-2); Eosinophils Absolute Auto 100 /uL (0-450); Eosinophils Percent Auto 1.7 % (2-4); Hematocrit 40.5 % (41-53); Hemoglobin 13.7 g/dL (13.5-17.5); Lymphocytes Absolute Auto 1600 /uL (1100-4500); Lymphocytes Percent Auto 26.1 % (25-40); Mean Corpuscular HGB Conc 33.8 % (30-36); Mean Corpuscular Hemoglobin 30.2 PG (26-34); Mean Corpuscular Volume 89.5 fL (80-100); Monocytes Absolute Auto 600 /uL (0-900); Monocytes Percent Auto 10.1 % (3-14); Neutrophils Absolute Auto 3700 /uL (1500-7000); Neutrophils Percent Auto 60.2 % (50-75); Platelet Count 168 X10^3/uL (150-400); Red Blood Cell Count 4.53 X10^6/uL (4.5-5.9); Red Cell Distribution Width 14.2 % (11.6-14.8); White Blood Cell Count 6.1 X10^3/uL (4.5-11.0)
[2022-11-17 15:22] LABS: Alanine Aminotransferase 22 IU/L (<50); Albumin 4.5 g/dL (3.5-5.0); Albumin Globulin Ratio 1.5 (1.0-2.8); Alkaline Phosphatase 65 U/L (38-126); Aspartate Aminotransferase 28 IU/L (17-59); BUN Creatinine Ratio 29.3 (6-22); Bilirubin Total 0.5 mg/dL (0.2-1.3); Blood Urea Nitrogen 29 mg/dL (9-20); Calcium 9.3 mg/dL (8.4-10.2); Carbon Dioxide 28 mmol/L (22-32); Chloride 102 mmol/L (98-107); Estimated Glomerular Filt Rate > 60 mL/min (>60); Globulin 3.1 g/dL (1.7-4.1); Glucose 114 mg/dL (80-110); HEMOLYSIS < 15 (0-50); Potassium 4.5 mmol/L (3.4-5.1); Sodium 138 mmol/L (137-145); Total Protein 7.6 g/dL (6.3-8.2)
[2022-11-17 15:28] LABS: Cholesterol 161 mg/dL (140-199); HDL Cholesterol 56 mg/dL (40-60); LDL Cholesterol Calculated 52 mg/dL (<100); Triglycerides 265 mg/dL (35-150)
== END ==
PROVIDERS: PCP Internal Medicine; Referring Provider Internal Medicine Cardiovascular Disease; Visit Provider Internal Medicine Cardiovascular Disease
DX: E78.5 Hyperlipidemia, unspecified (principal)
CPT/HCPCS: 36415; 80053; 80061; 85025

== ENCOUNTER → 2023-01-03 09:17 | Outpatient (CLI) | payer MEDICARE, OTHER, SELFPAY ==
--- NOTE | 2023-01-03 | DI.ECHO.S_ITS ---
[facility] +---------+ : : [address] : : : : [id number] : : : : Phone: [phone]+ Echocardiogram Report + + :Name: DONAVAN CAMP V Study Date: 01/03/2023 Height: 64 in : :[facility] ReadingLocation: Weight: 170 lb : : Gender: Male BSA: 1.8 m2 : :: 1935 Age: 87 yrs BP: 125/76 mmHg: :Reason For Study: MITRAL VALVE REPAIR : :Ordering Physician: TAL, : :RD Performed By: Yu Liu : :Referring: CRISTAL PARADA : + + Interpretation Summary The left ventricle is normal in size and wall thickness. The left ventricular ejection fraction is normal. The ejection fraction is estimated to be 55-60%. This is unchanged compared to the previous study. The right ventricle is mildly dilated. Right ventricular systolic function is moderately reduced. This is unchanged compared to the previous study. The mitral valve has been surgically repaired and an annuloplasty ring sewn in place. The mitral valve mean gradient is 5.8 mmHg. Previously 3.9. Anterior mitral leaflet is pliable. Morphologically no significant mitral stenosis. Associated mild MR. There is mild tricuspid regurgitation. Compared to the prior echo exam, there has been no change in TR severity. The right ventricular systolic pressure is estimated to be at least 22 mmHg based on an estimated right atrial pressure of 3 mm Hg. Procedure: A two-dimensional transthoracic echocardiogram with color flow and Doppler was performed. The study quality was technically adequate. Comparison is made with the echocardiogram of 06/11/2020. The heart rate ranged between 62-91 bpm during the study. Rhythm is not clear but mostly regular narrow QRS. Based on mitral valve Doppler profile, possible sinus. Left Ventricle: The left ventricle is normal in size and wall thickness. There is no thrombus. The ejection fraction is estimated to be 55-60%. The left ventricular ejection fraction is normal. This is unchanged compared to the previous study. There are no focal wall motion abnormalities. MV E/A: 0.78 Med Peak E' Enrico: 8.3 cm/sec E/E' med: 15.2. Right Ventricle: The right ventricle is mildly dilated. Right ventricular systolic function is moderately reduced. This is unchanged compared to the previous study. Atria: The left atrium is mildly dilated. There has been no significant change since the previous study. This is unchanged compared to the previous study. Right atrial size is normal. There is no Doppler evidence for an interatrial shunt. Mitral Valve: The mitral valve has been surgically repaired and an annuloplasty ring sewn in place. The mitral valve mean gradient is 5.8 mmHg. There is mild mitral regurgitation. Aortic Valve: The aortic valve is trileaflet. The aortic valve is mildly calcified. There is mild aortic valve sclerosis. There is no hemodynamically significant valvular aortic stenosis. No aortic regurgitation is present. Tricuspid Valve: The tricuspid valve is normal. There is mild tricuspid regurgitation. The right ventricular systolic pressure is estimated to be at least 22 mmHg based on an estimated right atrial pressure of 3 mm Hg. Compared to the prior echo exam, there has been no change in TR severity. Pulmonic Valve: The pulmonic valve leaflets are thin and pliable; valve motion is normal. There is mild pulmonic regurgitation. Great Vessels: The aortic root is normal size. The dimensions of the ascending aorta are normal. The IVC is of normal diameter and collapses greater than 50% with a sniff. This suggests a low right atrial pressure of 3 mm Hg. Pericardium/ Pleura There is no pericardial effusion. There is no pleural effusion. MMode/2D Measurements & Calculations LVIDd: 4.1 cm LVOT diam: 2.2 cm LVIDs: 2.6 cm Ao root diam: 3.8 cm FS: 36.5 % asc Aorta Diam: 3.1 cm IVSd: 0.93 cm Ao Arch Diam (Prox Trans): 2.6 cm LVPWd: 0.91 cm LV bingham. diameter/BSA (cm/m^2): 2.2 LV sys. diameter/BSA (cm/m^2): 1.4 LA A2 area: 19.8 cm2 RA long axis: 4.9 cm LA A4 area: 17.5 cm2 RA area: 11.2 cm2 LA length (vol): 5.0 cm RA vol: 21.7 ml LA vol: 58.4 ml RA : 11.9 ml/m2 LA vol index: 32.0 ml/m2 IVC diam: 1.2 cm RVD1 (basal): 4.4 cm RVD2 (mid): 3.2 cm TAPSE: 1.1 cm Doppler Measurements & Calculations Ao V2 max: 169.1 cm/sec LVOT Max Enrico: 74.4 cm/sec Ao V2 mean: 120.8 cm/sec LV V1 max P.2 mmHg Ao max P.4 mmHg LV V1 VTI: 16.9 cm Ao mean P.4 mmHg LAURO(I,D): 1.8 cm2 Ao V2 VTI: 35.2 cm LAURO(V,D): 1.6 cm2 sev ratio: 0.48 LAURO indexed to BSA (cm^2/m^2): 0.98 MV E max enrico: 126.1 cm/sec TR max enrico: 217.4 cm/sec MV A max enrico: 161.9 cm/sec TR max P.9 mmHg MV E/A: 0.78 PA V2 max: 97.7 cm/sec Med Peak E' Enrico: 8.3 cm/sec PA V2 mean: 74.6 cm/sec E/E' med: 15.2 PA mean P.4 mmHg Lat Peak E' Enrico: 9.6 cm/sec PA pr(Accel): 27.6 mmHg E/E' lat: 13.2 E/e' average: 14.2 MV dec time: 0.13 sec MVA(VTI): 1.6 cm2 MV V2 mean: 110.9 cm/sec SV(LVOT): 63.1 ml MV mean P.8 mmHg MV V2 VTI: 38.9 cm Reading Physician:04:43 PM
== END ==
PROVIDERS: PCP Internal Medicine; Referring Provider Internal Medicine Cardiovascular Disease; Visit Provider Internal Medicine Cardiovascular Disease
DX: Z98.890 Other specified postprocedural states (principal); I08.3 Combined rheumatic disorders of mitral, aortic and tricuspid valves
CPT/HCPCS: 93306

== ENCOUNTER 2024-01-30 17:13 | Emergency (ER) | payer MEDICARE, OTHER, SELFPAY ==
[2024-01-30 17:27] VITALS: BP 172/80; PULSE 60; RESP 14; TEMP 36.2; O2SAT 99; BMI 28.3
--- NOTE | 2024-01-30 17:33 | DI.CT.S_ITS ---
PROCEDURE: CT HEAD/BRAIN WO CON INDICATIONS: GLF TECHNIQUE: Noncontrast 4.5 mm thick angled axial sections acquired from the foramen magnum to the vertex, with coronal and sagittal reformats. For radiation dose reduction, the following was used: automated exposure control, adjustment of mA and/or kV according to patient size. COMPARISON: [facility], CT, CT HEAD/BRAIN WO CON, 10/05/2020, 13:23. FINDINGS: Image quality: Diagnostic. CSF spaces: Basal cisterns are patent. No extra-axial fluid collections. The ventricles are symmetric in size and shape. Brain: No intracranial bleeds or masses. There is cerebral volume loss for age, with resultant ventricular and sulcal prominence. There are periventricular and deep white matter chronic small vessel ischemic changes. There is intracranial internal carotid artery atherosclerosis. Skull and face: Calvarium and visualized facial bones appear intact, without suspicious lesions. Sinuses: Visualized sinuses and mastoids are clear. IMPRESSION: No acute intracranial pathology. Dictated by: Deandre Caldwell M.D. on 01/30/2024 at 17:51 Approved by: Deandre Caldwell M.D. on 01/30/2024 at 17:56
--- NOTE | 2024-01-30 17:33 | DI.CT.S_ITS ---
IPROCEDURE: CT FACIAL BONES WO CON INDICATIONS: GLF TECHNIQUE: Noncontrast 2.5 mm thick axial images acquired from the mandible through the frontal sinuses, with coronal and sagittal reformatting. For radiation dose reduction, the following was used: automated exposure control, adjustment of mA and/or kV according to patient size. COMPARISON: [facility], CT, CT HEAD/BRAIN WO CON, 10/05/2020, 13:23. FINDINGS: Image quality: Excellent. Bones and teeth: Orbital archer are intact. Sinus archer show no fracture or deformity. Nasal bones and septum are intact. Visualized portions of the mandible demonstrate no fractures or subluxation. Zygomatic arches are intact. Pterygoid plates are intact. Visualized portions of the skull base and auditory canals are intact. Sinuses: Paranasal sinuses are aerated, without fluid levels, mucosal thickening, or mucoceles. Mastoid air cells are aerated. Soft tissues: No edema, masses, or fluid collections. No enlarged lymph nodes. No soft tissue lacerations or debris. Vascular: Visualized vascular structures appear normal in the absence of contrast. Bony vascular foramina and canals are intact. IMPRESSION: No acute facial bone fractures. Dictated by: Deandre Caldwell M.D. on 01/30/2024 at 17:57 Approved by: Deandre Caldwell M.D. on 01/30/2024 at 18:03
--- NOTE | 2024-01-30 17:40 | ED_ITS ---
HPI - Fall <Bela Nowak PA-C - Last Filed: 01/30/24 18:20> General Chief Complaint: Fall Stated Complaint: GLF, On Thinners Time Seen by Provider: 01/30/24 17:33 Source: patient Mode of arrival: Ambulatory History of Present Illness HPI Narrative: 88-year-old male on Eliquis for atrial fibrillation presents to the ED status post a mechanical fall sustained just prior to arrival. Patient states he tripped, fell forward, struck his nose on a dresser. No loss of consciousness. Patient denies feeling unwell or lightheaded prior to the fall. Patient endorses some soreness at the bridge of the nose. No other injuries. Related Data Home Medications Medication Instructions Recorded Confirmed donepezil 10 mg tablet 5 mg PO BEDTIME 09/13/17 10/18/21 fenofibrate nanocrystallized 145 145 mg PO DAILY 09/13/17 10/18/21 mg tablet (Tricor) metoprolol succinate 25 mg 12.5 mg PO DAILY 09/13/17 10/18/21 tablet,extended release 24 hr multivitamin with folic acid 400 1 tab PO DAILY 09/13/17 10/18/21 mcg tablet potassium gluconate 595 mg (99 mg) 99 mg PO DAILY 09/13/17 10/18/21 tablet simvastatin 40 mg tablet 40 mg PO QPM 09/13/17 10/18/21 trazodone 50 mg tablet 50 mg PO BEDTIME 09/13/17 10/18/21 vitamin E 268 mg (400 unit) capsule 400 unit PO DAILY 09/13/17 10/18/21 Respironcis Dramstation CPAP #1 ea 09/28/18 10/18/21 warfarin 4 mg tablet 4 mg PO DAILY 01/14/21 10/18/21 Allergies Allergy/AdvReac Type Severity Reaction Status Date / Time No Known Drug Allergies Allergy Verified 01/30/24 17:30 Review of Systems <Bela Nowak PA-C - Last Filed: 01/30/24 18:20> Constitutional Constitutional: Denies chills, Denies fatigue, Denies fever(s), Denies frequent falls, Denies lethargy and Denies weakness Eyes Eyes: Denies change in vision, Denies eye discharge, Denies irritation and Denies loss of vision ENT Ears, Nose, Mouth, and Throat: Denies change in voice, Denies dizziness, Denies neck pain, Denies sore throat and Denies throat swelling Comments: Soreness at the bridge of the nose Cardiovascular Cardiovascular: Denies chest pain, Denies irregular heart rhythm, Denies lightheadedness, Denies palpitations, Denies dyspnea, Denies dyspnea on exertion and Denies orthopnea Respiratory Respiratory: Denies cough, Denies dyspnea, Denies dyspnea on exertion and Denies wheezing Gastrointestinal Gastrointestinal: Denies abdominal pain, Denies change in bowel habits, Denies diarrhea, Denies nausea and Denies vomiting Musculoskeletal Musculoskeletal: Denies neck pain and Denies numbness Integumentary/Breasts Skin/Breast: Denies pruritus, Denies erythema, Denies rash and Denies wounds Neurologic Neurologic: Denies behavioral changes, Denies confusion, Denies dizziness, Denies frequent falls, Denies loss of vision, Denies numbness and Denies weakness Psychiatric Psychiatric: Denies anxiety, Denies behavioral changes, Denies confusion, Denies depression, Denies homicidal ideation and Denies suicidal ideation Endocrine Endocrine: Denies fatigue, Denies flushing and Denies palpitations Hematologic/Lymphatic Hematologic/Lymphatic: Denies easy bruising Allergic/Immunologic Allergic/Immunologic: Denies urticaria, Denies throat swelling and Denies wheezing Patient History <Bela Nowak PA-C - Last Filed: 01/30/24 18:20> Medical History trauma counsellor associated with adverse incidents Right bundle branch block (RBBB) Mild cognitive impairment Macular degeneration BPH (benign prostatic hyperplasia) Hyperlipidemia Hypertension Obstructive sleep apnea of adult Atrial fibrillation and flutter 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 There is a small abrasion/red spot at the bridge of the nose which is tender to palpation. No bleeding inside the nares. No septal hematoma. Face and sinus:?normal facial exam and sinuses nontender Mouth:?oral mucosae normal Throat:?posterior oropharynx normal Eyes General:?appearance normal, both eyes and all related structures Neck Neck:?normal visual inspection and no lymphadenopathy noted Resp Effort & Inspection:?normal respiratory effort Auscultation:?clear to auscultation bilaterally Cardio Rate:?regular rate Rhythm:?regular rhythm Neuro General:?patient alert, patient awake and patient oriented x3 Initial Vital Signs Initial Vital Signs: Vital Signs Temperature 97.2 F L 01/30/24 17:27 Pulse Rate 60 01/30/24 17:27 Respiratory Rate 14 01/30/24 17:27 Blood Pressure 172/80 H 01/30/24 17:27 Pulse Oximetry 99 01/30/24 17:27 Oxygen Delivery Method Room Air 01/30/24 17:27 <DO Jaiden Olivarez Last Filed: 01/30/24 18:54> Initial Vital Signs Initial Vital Signs: Vital Signs Temperature 97.2 F L 01/30/24 17:27 Pulse Rate 60 01/30/24 17:27 Respiratory Rate 14 01/30/24 17:27 Blood Pressure 172/80 H 01/30/24 17:27 Pulse Oximetry 99 01/30/24 17:27 Oxygen Delivery Method Room Air 01/30/24 17:27 Course <Bela Nowak PA-C - Last Filed: 01/30/24 18:20> Orders Ordered: ED Orders 01/30/24 17:33 CT facial bones wo con Stat CT head/brain wo con Stat Vital Signs Vital signs: Vital Signs - 8 hr 01/30/24 17:27 Temperature 97.2 F L Pulse Rate 60 Respiratory Rate 14 Blood Pressure 172/80 H Pulse Oximetry 99 Oxygen Delivery Method Room Air <DO Jaiden Olivarez Last Filed: 01/30/24 18:54> Orders Ordered: ED Orders 01/30/24 17:33 CT facial bones wo con Stat CT head/brain wo con Stat Vital Signs Vital signs: Vital Signs - 8 hr 01/30/24 17:27 Temperature 97.2 F L Pulse Rate 60 Respiratory Rate 14 Blood Pressure 172/80 H Pulse Oximetry 99 Oxygen Delivery Method Room Air MDM - Fall <Bela Nowak PA-C - Last Filed: 01/30/24 18:20> [facility] Narrative Medical decision making narrative: 88-year-old male on Eliquis for atrial fibrillation presents to the ED status post a mechanical fall sustained just prior to arrival. Concern for intracranial hemorrhage versus fracture/dislocation versus other. Obtained CT head and CT facial bones which were without acute findings. Discussed findings with patient. Patient agrees to monitor symptoms and return to the ED if sympt oms worsen. Medical records reviewed: Yes <Cash Hightower DO - Last Filed: 01/30/24 18:54> [facility] Narrative Medical decision making narrative: 88-year-old male on Eliquis for atrial fibrillation presents to the ED status post a mechanical fall sustained just prior to arrival. Concern for intracrani al hemorrhage versus fracture/dislocation versus other. Obtained CT head and CT facial bones which were without acute findings. Discussed findings with patient. Patient agrees to monitor symptoms and return to the ED if symptoms worsen. Medical records reviewed: Yes Dr. Hightower: I was immediately available in the department for consultation. Documentation has been reviewed. I agree with assessment and plan. Discharge Plan Departure Patient Disposition: Home Clinical Impression: Fall Qualifiers: Encounter type: initial encounter Qualified Code(s): W19.XXXA - Unspecified fall, initial encounter Instructions: How to Prevent Falls Activity Restrictions/Additional Instructions: You were evaluated in the ED today for an injury to the nose from a fall. Your head CT and facial CT were both normal. Please continue to monitor your symptoms and return to the ED for symptoms worsen. Prescriptions: No Action (DME) Respironcis Dramstation CPAP Qty: 1 Dose Instruction: As directed Patient Comments: Pressure: 9-16 cmH2O DME: [facility] Rx Instructions: As directed trazodone 50 mg Tablet 50 mg PO BEDTIME donepezil 10 mg Tablet 5 mg PO BEDTIME simvastatin 40 mg Tablet 40 mg PO QPM metoprolol succinate 25 mg Tablet Extended Release 24 Hr 12.5 mg PO DAILY vitamin E 400 unit Capsule 400 unit PO DAILY fenofibrate nanocrystallized [Tricor] 145 mg Tablet 145 mg PO DAILY potassium gluconate 595 mg (99 mg) Tablet 99 mg PO DAILY multivitamin with folic acid 400 mcg Tablet 1 tab PO DAILY warfarin 4 mg tablet 4 mg PO DAILY Referrals: Branden Rizo MD [Primary Care Provider] - Stand Alone Forms: Patient Portal/API
== END 2024-01-30 18:17 | disposition home or self-care (01) ==
PROVIDERS: Emergency Provider Student in an Organized Health Care Education/Training Program; PCP Internal Medicine
DX: S09.92XA Unspecified injury of nose, initial encounter (principal); W01.190A Fall on same level from slipping, tripping and stumbling with subsequent striking against furniture, initial encounter; I48.91 Unspecified atrial fibrillation; Z79.01 Long term (current) use of anticoagulants
CPT/HCPCS: 70450; 70486; 99283; 99284

== ENCOUNTER → 2024-05-15 12:17 | Outpatient (CLI) | payer MEDICARE, OTHER, SELFPAY ==
[2024-05-15 13:13] LABS: Appearance Urine UA CLEAR; Bilirubin Urine UA NEGATIVE (NEGATIVE); Color Urine UA YELLOW; Glucose Urine UA NEGATIVE (Negative); Ketones Urine UA NEGATIVE (NEGATIVE); Leukocyte Esterase Urine UA NEGATIVE (NEGATIVE); Nitrite Urine UA NEGATIVE (Negative); Occult Blood Urine UA NEGATIVE (Negative); Protein Urine UA NEGATIVE (Negative); Specific Gravity Urine UA >=1.030 (1.000-1.035); Urobilinogen Urine UA 0.2 E.U./dL (0.2); pH Urine UA 5.5 (4.5-8.0)
[2024-05-15 13:21] LABS: Bacteria Urine None Seen; Culture Indicated Urine Cult Not Indicated; RBC Urine None Seen (0-5/HPF); Squamous Epithelial Cell Urine None Seen (0-5/HPF); Urine Volume 10mL (spun); WBC Urine 1-5/HPF (0-5/HPF)
== END ==
PROVIDERS: PCP Physician Assistant; Referring Provider Physician Assistant; Visit Provider Physician Assistant
DX: R35.0 Frequency of micturition (principal)
CPT/HCPCS: 81001

== ENCOUNTER → 2024-10-18 14:08 | Outpatient (CLI) | payer MEDICARE, OTHER, SELFPAY ==
[2024-10-18 15:36] LABS: Add Manual Diff / Slide Review NO; Basophils Absolute Auto 100 /uL (0-100); Basophils Percent Auto 1.3 % (0-2); Eosinophils Absolute Auto 100 /uL (0-450); Hematocrit 42.9 % (41-53); Hemoglobin 14.4 g/dL (13.5-17.5); Lymphocytes Absolute Auto 1500 /uL (1100-4500); Lymphocytes Percent Auto 21.1 % (25-40); Mean Corpuscular HGB Conc 33.6 % (30-36); Mean Corpuscular Hemoglobin 30.4 PG (26-34); Mean Corpuscular Volume 90.6 fL (80-100); Monocytes Absolute Auto 600 /uL (0-900); Monocytes Percent Auto 8.4 % (3-14); Neutrophils Absolute Auto 4600 /uL (1500-7000); Neutrophils Percent Auto 67.2 % (50-75); Platelet Count 193 X10^3/uL (150-400); Red Blood Cell Count 4.73 X10^6/uL (4.5-5.9); Red Cell Distribution Width 14.2 % (11.6-14.8); White Blood Cell Count 6.9 X10^3/uL (4.5-11.0)
[2024-10-18 15:44] LABS: Alanine Aminotransferase 16 IU/L (<50); Albumin 4.6 g/dL (3.5-5.0); Albumin Globulin Ratio 1.7 (1.0-2.8); Alkaline Phosphatase 61 U/L (38-126); Aspartate Aminotransferase 23 IU/L (17-59); BUN Creatinine Ratio 22.2 (6-22); Bilirubin Total 0.5 mg/dL (0.2-1.3); Blood Urea Nitrogen 22 mg/dL (9-20); Calcium 9.6 mg/dL (8.4-10.2); Carbon Dioxide 26 mmol/L (22-32); Chloride 104 mmol/L (98-107); Estimated Glomerular Filt Rate > 60 mL/min (>60); Globulin 2.7 g/dL (1.7-4.1); Glucose 155 mg/dL (70-99); HEMOLYSIS < 15 (0-50); Potassium 4.2 mmol/L (3.4-5.1); Sodium 140 mmol/L (137-145); Total Protein 7.3 g/dL (6.3-8.2)
== END ==
PROVIDERS: PCP Physician Assistant; Referring Provider Physician Assistant; Visit Provider Nurse Practitioner
DX: I34.0 Nonrheumatic mitral (valve) insufficiency (principal); I48.92 Unspecified atrial flutter
CPT/HCPCS: 36415; 80053; 85025

== ENCOUNTER 2024-10-22 08:49 | Emergency (ER) | payer MEDICARE, OTHER, SELFPAY ==
[2024-10-22] VITALS (40 sets, daily range): BP systolic 97–169; BP diastolic 43–93; PULSE 56–89; RESP 9–44; TEMP 36.4; O2SAT 93–100; BMI 27.4
--- NOTE | 2024-10-22 09:15 | PC.NURSE ---
0915: Pt arrives to ER rm 2 in . Pt is unresponsive in and flacid. Pt moved to [facility] and code is called overhead. Pt wakes and is looking around room. Two large bore IVs started and labs obtained. 919: Code ended. Placed on transport monitor and taken to CT. 929: After CT contrast administered pt had 20 mL of clear emesis. Raised to sitting, pt not responding, looking around room. Pt answering questions 20 seconds after sitting in upright position. Placed on [facility] and returned to ER Rm 2. Placed on defib pads. And additional EKG done. Dr Chun aware.
--- NOTE | 2024-10-22 09:15 | DI.CT.S_ITS ---
PROCEDURE: CT ANGIO HEAD AND NECK INDICATIONS: Altered mental status, syncope TECHNIQUE: After the administration of intravenous contrast, 1 mm thick sections acquired from the aortic arch through the [place]. 3-dimensional zjrthqu-wnvbqjuwa-sgzlbwibom (MIP) and/or volume rendering reformats were acquired of the central intracranial vasculature and neck separately. For radiation dose reduction, the following was used: automated exposure control, adjustment of mA and/or kV according to patient size. COMPARISON: None. FINDINGS: Image quality: Diagnostic. Cerebral CT Angiogram: Internal carotid arteries: No acute findings. Intracranial ICA are patent with no significant stenosis. No occlusion. No aneurysm. Anterior cerebral arteries: Unremarkable. No significant stenosis. No occlusion. No aneurysm. Middle cerebral arteries: Unremarkable. No significant stenosis. No occlusion. No aneurysm. Posterior cerebral arteries: Unremarkable. No significant stenosis. No occlusion. No aneurysm. Basilar artery: Unremarkable. No significant stenosis. No occlusion. No aneurysm. Vertebral arteries: Unremarkable as visualized. Dural venous sinuses: Unremarkable given phase of enhancement. Other: Arterial phase appearance of the brain parenchyma is unremarkable. Neck CT Angiogram: Internal carotid arteries: Unremarkable. No significant stenosis. No dissection or occlusion. Common carotid arteries: Unremarkable. No significant stenosis. No dissection or occlusion. External carotid arteries: Unremarkable. No occlusion. Vertebral arteries: Unremarkable. No significant stenosis. No dissection or occlusion. Aortic Arch and Mediastinum: Partially visualized aortic arch unremarkable without evidence of aneurysm. Origins of the great vessels unremarkable. Other: Arterial phase soft tissues of the neck and chest are unremarkable. IMPRESSION: 1. No significant intracranial arterial abnormality is seen. 2. No significant abnormality is seen within the arteries of the neck. Any quantitative measurements of stenosis were performed using NASCET criteria. Dictated by: Ted Salas M.D. on 10/22/2024 at 9:53 Approved by: Ted Salas M.D. on 10/22/2024 at 9:55
--- NOTE | 2024-10-22 09:15 | DI.CT.S_ITS ---
PROCEDURE: CT STROKE INDICATIONS: Altered mental status, syncope TECHNIQUE: Noncontrast 4.5 mm thick angled axial sections acquired from the foramen magnum to the vertex, with coronal reformats. For radiation dose reduction, the following was used: automated exposure control, adjustment of mA and/or kV according to patient size. COMPARISON: None. FINDINGS: Image quality: Diagnostic. CSF spaces: Basal cisterns are patent. No extra-axial fluid collections. The ventricles are symmetric in size and shape. Brain: No intracranial bleeds or mass effect. There is cerebral volume loss, with resultant ventricular and sulcal prominence. There are periventricular and deep white matter chronic small vessel ischemic changes. There is intracranial internal carotid artery atherosclerosis. Skull and face: Calvarium and visualized facial bones appear intact, without suspicious lesions. Sinuses: Visualized sinuses and mastoids are clear. IMPRESSION: No acute intracranial pathology. Findings discussed with Dr. Chun at 9:35 a.m. On 10/22/2024. This study fulfills neurological imaging criteria for inclusion or exclusion of acute stroke therapies based on available published neurological guidelines. Dictated by: Sanket Solomon M.D. on 10/22/2024 at 9:35 Approved by: Sanket Solomon M.D. on 10/22/2024 at 9:36
--- NOTE | 2024-10-22 09:15 | DI.CT.S_ITS ---
PROCEDURE: CT CERVICAL SPINE WO CON INDICATIONS: Altered mental status, syncope TECHNIQUE: Noncontrast 3 mm thick sections acquired from the skull base to the T4 level. Sagittal and coronal reformats were then constructed. For radiation dose reduction, the following was used: automated exposure control, adjustment of mA and/or kV according to patient size. COMPARISON: [facility], CT, C-SPINE WITHOUT CONTRAST, 08/23/2016, 1:36. FINDINGS: Image quality: Excellent. Bones: Straightening of normal cervical lordosis is seen. No fractures or dislocations. Loss of disc height, degenerative endplate changes and bilateral facet hypertrophic changes are noted throughout cervical spine causing nbes-dr-[id number] central canal stenosis and bilateral neural foraminal narrowing more notably at C5-6 and C6-7 levels. Visualized superior ribs are intact. Soft tissues: Prevertebral soft tissues are normal in thickness. No paravertebral hematomas. No apical pneumothoraces. IMPRESSION: 1. No displaced fracture or traumatic subluxation. 2. Multilevel spondylitic changes throughout cervical spine as above. Dictated by: Ted Salas M.D. on 10/22/2024 at 9:52 Approved by: Ted Salas M.D. on 10/22/2024 at 9:53
--- NOTE | 2024-10-22 09:15 | DI.CT.S_ITS ---
PROCEDURE: CT FACIAL BONES WO CON INDICATIONS: Altered mental status, syncope TECHNIQUE: Noncontrast 2.5 mm thick axial images acquired from the mandible through the frontal sinuses, with coronal and sagittal reformatting. For radiation dose reduction, the following was used: automated exposure control, adjustment of mA and/or kV according to patient size. COMPARISON: [facility], CT, CT FACIAL BONES WO CON, 01/30/2024, 17:39. FINDINGS: Image quality: Excellent. Bones and teeth: Orbital archer are intact. Sinus archer show no fracture or deformity. Nasal bones and septum are intact. Visualized portions of the mandible demonstrate no fractures or subluxation. Zygomatic arches are intact. Pterygoid plates are intact. Visualized portions of the skull base and auditory canals are intact. Sinuses: Paranasal sinuses are aerated, without fluid levels, mucosal thickening, or mucoceles. Mastoid air cells are aerated. Soft tissues: No edema, masses, or fluid collections. No enlarged lymph nodes. No soft tissue lacerations or debris. Vascular: Visualized vascular structures appear normal in the absence of contrast. Bony vascular foramina and canals are intact. IMPRESSION: No displaced fracture or air-fluid level. Dictated by: Sanket Solomon M.D. on 10/22/2024 at 9:53 Approved by: Sanket Solomon M.D. on 10/22/2024 at 9:53
--- NOTE | 2024-10-22 09:16 | EKG_ITS ---
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
--- NOTE | 2024-10-22 09:17 | ED.FALL ---
HPI - Fall General Chief Complaint: Fall Stated Complaint: Fell this morning , On blood thinners Time Seen by Provider: 10/22/24 09:12 Source: patient Mode of arrival: Wheelchair History of Present Illness HPI Narrative: Modified trauma activated Primary survey A -airway intact B -equal breath sounds C -strong heart sounds D -no gross deformity E -no chemical exposure Patient brought here by and special events assistant, patient brought in as modified trauma due to blood thinners for atrial fibrillation. Patient has history of heart valve replacement as well. However while transferring patient wheelchair to his bed in the room. Patient had syncopal episode. Code blue was called as patient was pulseless. Patient was carried to his bed. Patient within 30 seconds regained consciousness and was awake and answering his name and date of . Blood sugar 170. Patient on monitor atrial fibrillation rate 80.. Patient is on Eliquis. Does not have a pacemaker. Patient sees Dr. Mejia, cardiology [facility]. does not know if the heart valve is metal Last well known 730 this morning. left at 7:30 a.m. this morning to place there pet into a care facility because they were leaving for vacation today. She returned at 7:45 a.m. this morning to find patient passed out in the bathroom. Had erythema on the face and nose. No blood on the ground. Related Data Home Medications ?Medication ?Instructions ?Recorded ?Confirmed donepezil 10 mg tablet 5 mg PO BEDTIME 09/13/17 10/18/21 fenofibrate nanocrystallized 145 145 mg PO DAILY 09/13/17 10/18/21 mg tablet (Tricor) metoprolol succinate 25 mg 12.5 mg PO DAILY 09/13/17 10/18/21 tablet,extended release 24 hr multivitamin with folic acid 400 1 tab PO DAILY 09/13/17 10/18/21 mcg tablet potassium gluconate 595 mg (99 mg) 99 mg PO DAILY 09/13/17 10/18/21 tablet simvastatin 40 mg tablet 40 mg PO QPM 09/13/17 10/18/21 trazodone 50 mg tablet 50 mg PO BEDTIME 09/13/17 10/18/21 vitamin E 268 mg (400 unit) capsule 400 unit PO DAILY 09/13/17 10/18/21 Respironcis Dramstation CPAP #1 ea 09/28/18 10/18/21 warfarin 4 mg tablet 4 mg PO DAILY 01/14/21 10/18/21 Allergies Allergy/AdvReac Type Severity Reaction Status Date / Time No Known Drug Allergies Allergy Verified 10/22/24 08:59 Review of Systems Review of Systems Narrative: GENERAL: Negative chills, fatigue, malaise, fever, sweats. 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 Right bundle branch block (RBBB) Mild cognitive impairment Macular degeneration BPH (benign prostatic hyperplasia) Hyperlipidemia Hypertension Obstructive sleep apnea of adult Atrial fibrillation and flutter 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 EYES: Pupils equal round ENT: Mucous membranes moist. NECK: Trachea midline. CARDIOVASCULAR: Irregular irregular rate and rhythm RESPIRATORY: Clear to auscultation. Breath sounds equal bilaterally. No wheezes, rales, or rhonchi. GASTROINTESTINAL: Abdomen soft, non-tender EXTREMITIES: No gross deformities. BACK: No flank tenderness. NEURO: AOx3. Clear speech no facial droop light touch intact bilateral face and hands strong equal credit control officer SKIN: Patient now Warm and dry, when patient had syncopal episode he was diaphoretic and pale. PSYCH: Not anxious, is cooperative Initial Vital Signs Initial Vital Signs: Vital Signs Temperature 97.5 F L 10/22/24 08:59 Pulse Rate 69 10/22/24 08:59 Respiratory Rate 18 10/22/24 08:59 Blood Pressure 117/63 10/22/24 08:59 Pulse Oximetry 97 10/22/24 08:59 Oxygen Delivery Method Room Air 10/22/24 08:59 Course Orders Ordered: ED Orders 10/22/24 09:13 Complete Blood Count AUTO DIFF Stat Comprehensive Metabolic Panel Stat PTT Partial Thromboplastin Ori Stat Prothrombin Time INR Stat Troponin & CK Cardiac Panel Stat 10/22/24 09:[address] angio head and neck Stat CT cervical spine wo con Stat CT facial bones wo con Stat 10/22/24 09:17 EKG-12 Lead Stat 10/22/24 09:22 XR chest 1V Stat 10/22/24 09:33 EKG-12 Lead Routine Discontinued Medications Sodium Chloride (Normal Saline 0.9%) 500 mls @ 1,000 mls/hr IV BOLUS ONE Stop: 10/22/24 10:36 Last Infusion: 10/22/24 10:56 Dose: Infused Documented By: Admin: 10/22/24 10:18 Dose: 1,000 mls/hr Documented By: Dopamine HCl/Dextrose (Dopamine 400 Mg-D5w 250 Ml) 400 mg in 250 mls @ 13.608 mls/hr IV TITRATE [facility]; Protocol Last Admin: 10/22/24 10:39 Dose: Not Given Documented By: Vital Signs Vital signs: Vital Signs - 8 hr 10/22/24 08:59 10/22/24 09:14 10/22/24 09:15 Temperature 97.5 F L Pulse Rate 69 79 85 Respiratory Rate 18 19 Blood Pressure 117/63 153/87 H Pulse Oximetry 97 96 98 Oxygen Delivery Method Room Air 10/22/24 09:16 10/22/24 09:16 10/22/24 09:20 Temperature Pulse Rate 83 Respiratory Rate 17 Blood Pressure 169/75 H 158/72 H Pulse Oximetry 96 Oxygen Delivery Method 10/22/24 09:20 10/22/24 09:30 10/22/24 09:31 Temperature Pulse Rate 81 86 Respiratory Rate 16 44 H Blood Pressure 149/93 H Pulse Oximetry 97 100 Oxygen Delivery Method 10/22/24 09:31 10/22/24 09:35 10/22/24 09:35 Temperature Pulse Rate 89 83 Respiratory Rate 23 12 Blood Pressure 154/73 H Pulse Oximetry 97 97 Oxygen Delivery Method 10/22/24 09:41 10/22/24 09:41 10/22/24 09:45 Temperature Pulse Rate 74 Respiratory Rate 12 Blood Pressure 158/71 H 134/63 Pulse Oximetry 98 Oxygen Delivery Method 10/22/24 09:45 10/22/24 09:50 10/22/24 09:50 Temperature Pulse Rate 72 71 Respiratory Rate 13 9 L Blood Pressure 136/65 Pulse Oximetry 98 97 Oxygen Delivery Method 10/22/24 09:55 10/22/24 09:55 10/22/24 10:00 Temperature Pulse Rate 72 Respiratory Rate 14 Blood Pressure 124/61 126/66 Pulse Oximetry 96 Oxygen Delivery Method 10/22/24 10:00 10/22/24 10:06 10/22/24 10:06 Temperature Pulse Rate 71 56 L Respiratory Rate 9 L 22 Blood Pressure 104/43 L Pulse Oximetry 97 95 Oxygen Delivery Method 10/22/24 10:07 10/22/24 10:07 10/22/24 10:10 Temperature Pulse Rate 57 L 70 Respiratory Rate 16 14 Blood Pressure 97/50 L Pulse Oximetry 93 95 Oxygen Delivery Method Room Air 10/22/24 10:10 10/22/24 10:13 10/22/24 10:13 Temperature Pulse Rate 80 Respiratory Rate 17 Blood Pressure 114/60 107/58 L Pulse Oximetry 94 Oxygen Delivery Method 10/22/24 10:14 10/22/24 10:14 10/22/24 10:16 Temperature Pulse Rate 69 Respiratory Rate 13 Blood Pressure 113/60 118/63 Pulse Oximetry 95 Oxygen Delivery Method 10/22/24 10:16 10/22/24 10:18 10/22/24 10:18 Temperature Pulse Rate 77 79 Respiratory Rate 19 16 Blood Pressure 114/57 L Pulse Oximetry 95 96 Oxygen Delivery Method 10/22/24 10:20 10/22/24 10:20 10/22/24 10:22 Temperature Pulse Rate 79 Respiratory Rate 19 Blood Pressure 129/58 L 118/61 Pulse Oximetry 95 Oxygen Delivery Method 10/22/24 10:22 10/22/24 10:24 10/22/24 10:24 Temperature Pulse Rate 78 82 Respiratory Rate 19 19 Blood Pressure 121/63 Pulse Oximetry 94 95 Oxygen Delivery Method Room Air 10/22/24 10:27 10/22/24 10:27 10/22/24 10:28 Temperature Pulse Rate 80 Respiratory Rate 17 Blood Pressure 123/59 L 136/62 Pulse Oximetry 94 Oxygen Delivery Method 10/22/24 10:28 10/22/24 10:30 10/22/24 10:30 Temperature Pulse Rate 80 79 Respiratory Rate 9 L 15 Blood Pressure 135/64 Pulse Oximetry 98 97 Oxygen Delivery Method 10/22/24 10:33 10/22/24 10:33 10/22/24 10:35 Temperature Pulse Rate 81 80 Respiratory Rate 13 12 Blood Pressure 120/61 Pulse Oximetry 97 97 Oxygen Delivery Method 10/22/24 10:35 10/22/24 10:40 10/22/24 10:40 Temperature Pulse Rate 70 Respiratory Rate 16 Blood Pressure 129/60 133/62 Pulse Oximetry 98 Oxygen Delivery Method 10/22/24 10:45 10/22/24 10:45 10/22/24 10:50 Temperature Pulse Rate 75 Respiratory Rate 17 Blood Pressure 144/57 H 149/65 H Pulse Oximetry 98 Oxygen Delivery Method 10/22/24 10:50 10/22/24 10:55 10/22/24 10:55 Temperature Pulse Rate 70 75 Respiratory Rate 18 11 L Blood Pressure 134/63 Pulse Oximetry 98 98 Oxygen Delivery Method 10/22/24 11:00 10/22/24 11:01 10/22/24 11:01 Temperature Pulse Rate 79 74 Respiratory Rate 15 16 Blood Pressure 118/84 Pulse Oximetry 96 98 Oxygen Delivery Method 10/22/24 11:05 10/22/24 11:05 10/22/24 11:10 Temperature Pulse Rate 74 Respiratory Rate 11 L Blood Pressure 112/57 L 105/62 Pulse Oximetry 98 Oxygen Delivery Method Room Air 10/22/24 11:10 10/22/24 11:12 10/22/24 11:12 Temperature Pulse Rate 73 82 Respiratory Rate 15 16 Blood Pressure 118/56 L Pulse Oximetry 96 97 Oxygen Delivery Method 10/22/24 11:15 10/22/24 11:15 10/22/24 11:20 Temperature Pulse Rate 78 Respiratory Rate 17 Blood Pressure 123/59 L 122/61 Pulse Oximetry 98 Oxygen Delivery Method 10/22/24 11:20 10/22/24 11:27 Temperature Pulse Rate 72 Respiratory Rate 18 20 Blood Pressure Pulse Oximetry 98 Oxygen Delivery Method Room Air MDM - Fall Lab Data 10/22/24 09:13 10/22/24 09:13 Labs: Lab Results 10/22/24 Range/Units 09:13 WBC 7.6 (4.5-11.0) X10^3/uL RBC 4.72 (4.5-5.9) X10^6/uL Hgb 14.4 (13.5-17.5) g/dL Hct 42.9 (41-53) % MCV 90.7 (80-100) fL MCH 30.6 (26-34) PG MCHC 33.7 (30-36) % RDW 14.3 (11.6-14.8) % Plt Count 174 (150-400) X10^3/uL Neut % (Auto) 61.2 (50-75) % Lymph % (Auto) 27.2 (25-40) % Loving % (Auto) 8.7 (3-14) % Eos % (Auto) 1.7 L (2-4) % Baso % (Auto) 1.2 (0-2) % Neut # (Auto) 4600 (1132-6572) /uL Lymph # (Auto) 2100 (6561-8247) /uL Loving # (Auto) 700 (0-900) /uL Eos # (Auto) 100 (0-450) /uL Baso # (Auto) 100 (0-100) /uL PT 18.1 H (9.4-12.5) SECONDS INR 1.6 H (0.9-1.3) APTT 35 (25.1-36.5) SECONDS Sodium 139 (137-145) mmol/L Potassium 4.0 (3.4-5.1) mmol/L Chloride 106 (98-107) mmol/L Carbon Dioxide 21 L (22-32) mmol/L BUN 27 H (9-20) mg/dL Creatinine 0.99 (0.66-1.25) mg/dL Estimated GFR > 60 (>60) mL/min BUN/Creatinine Ratio 27.3 H (6-22) Glucose 182 H (70-99) mg/dL Calcium 9.4 (8.4-10.2) mg/dL Total Bilirubin 0.8 (0.2-1.3) mg/dL AST 30 (17-59) IU/L ALT 18 (<50) IU/L Alkaline Phosphatase 61 (38-126) U/L Total Creatine Kinase 88 (55-170) U/L Troponin I < 0.012 (0.01-0.034) ng/mL Total Protein 7.3 (6.3-8.2) g/dL Albumin 4.4 (3.5-5.0) g/dL Globulin 2.9 (1.7-4.1) g/dL Albumin/Globulin Ratio 1.5 (1.0-2.8) Imaging Data CT scan - head: Radiologist's Impression: [address] [address] [address] Scan Report Signed Patient: Nael Lamas V MR#: [id number] : 1935 Acct:[id number] Age/Sex: 89 / M Date of Service: 10/22/24 Loc: ED Accession Number: [id number] Procedure: CT Stroke Ordering Provider: Pedro Pablo Chun MD PROCEDURE: CT STROKE INDICATIONS: Altered mental status, syncope TECHNIQUE: Noncontrast 4.5 mm thick angled axial sections acquired from the foramen magnum to the vertex, with coronal reformats. For radiation dose reduction, the following was used: automated exposure control, adjustment of mA and/or kV according to patient size. COMPARISON: None. FINDINGS: Image quality: Diagnostic. CSF spaces: Basal cisterns are patent. No extra-axial fluid collections. The ventricles are symmetric in size and shape. Brain: No intracranial bleeds or mass effect. There is cerebral volume loss, with resultant ventricular and sulcal prominence. There are periventricular and deep white matter chronic small vessel ischemic changes. There is intracranial internal carotid artery atherosclerosis. Skull and face: Calvarium and visualized facial bones appear intact, without suspicious lesions. Sinuses: Visualized sinuses and mastoids are clear. IMPRESSION: No acute intracranial pathology. Findings discussed with Dr. Chun at 9:35 a.m. On 10/22/2024. This study fulfills neurological imaging criteria for inclusion or exclusion of acute stroke therapies based on available published neurological guidelines. Dictated by: Sanket Solomon M.D. on 10/22/2024 at 9:35 Approved by: Sanket Solomon M.D. on 10/22/2024 at 9:36 CTA - brain/neck: Radiologist's Impression: [address] [address] [address] Scan Report Signed Patient: Nael Lamas V MR#: [id number] : 1935 Acct:[id number] Age/Sex: 89 / M Date of Service: 10/22/24 Loc: ED Accession Number: [id number] Procedure: CT angio head and neck Ordering Provider: Pedro Pablo Chun MD PROCEDURE: CT ANGIO HEAD AND NECK INDICATIONS: Altered mental status, syncope TECHNIQUE: After the administration of intravenous contrast, 1 mm thick sections acquired from the aortic arch through the [place]. 3-dimensional wmohyfx-ecndkwumd-qfwmopqzyr (MIP) and/or volume rendering reformats were acquired of the central intracranial vasculature and neck separately. For radiation dose reduction, the following was used: automated exposure control, adjustment of mA and/or kV according to patient size. COMPARISON: None. FINDINGS: Image quality: Diagnostic. Cerebral CT Angiogram: Internal carotid arteries: No acute findings. Intracranial ICA are patent with no significant stenosis. No occlusion. No aneurysm. Anterior cerebral arteries: Unremarkable. No significant stenosis. No occlusion. No aneurysm. Middle cerebral arteries: Unremarkable. No significant stenosis. No occlusion. No aneurysm. Posterior cerebral arteries: Unremarkable. No significant stenosis. No occlusion. No aneurysm. Basilar artery: Unremarkable. No significant stenosis. No occlusion. No aneurysm. Vertebral arteries: Unremarkable as visualized. Dural venous sinuses: Unremarkable given phase of enhancement. Other: Arterial phase appearance of the brain parenchyma is unremarkable. Neck CT Angiogram: Internal carotid arteries: Unremarkable. No significant stenosis. No dissection or occlusion. Common carotid arteries: Unremarkable. No significant stenosis. No dissection or occlusion. External carotid arteries: Unremarkable. No occlusion. Vertebral arteries: Unremarkable. No significant stenosis. No dissection or occlusion. Aortic Arch and Mediastinum: Partially visualized aortic arch unremarkable without evidence of aneurysm. Origins of the great vessels unremarkable. Other: Arterial phase soft tissues of the neck and chest are unremarkable. IMPRESSION: 1. No significant intracranial arterial abnormality is seen. 2. No significant abnormality is seen within the arteries of the neck. Any quantitative measurements of stenosis were performed using NASCET criteria. Dictated by: Ted Salas M.D. on 10/22/2024 at 9:53 Approved by: Ted Salas M.D. on 10/22/2024 at 9:55 CT facial bones: Radiologist's Impression: [address] [address] [address] Scan Report Signed Patient: Nael Lamas V MR#: [id number] : 1935 Acct:[id number] Age/Sex: 89 / M Date of Service: 10/22/24 Loc: ED Accession Number: [id number] Procedure: CT facial bones wo con Ordering Provider: Pedro Pablo Chun MD PROCEDURE: CT FACIAL BONES WO CON INDICATIONS: Altered mental status, syncope TECHNIQUE: Noncontrast 2.5 mm thick axial images acquired from the mandible through the frontal sinuses, with coronal and sagittal reformatting. For radiation dose reduction, the following was used: automated exposure control, adjustment of mA and/or kV according to patient size. COMPARISON: [facility], CT, CT FACIAL BONES WO [facility], 01/30/2024, 17:39. FINDINGS: Image quality: Excellent. Bones and teeth: Orbital archer are intact. Sinus archer show no fracture or deformity. Nasal bones and septum are intact. Visualized portions of the mandible demonstrate no fractures or subluxation. Zygomatic arches are intact. Pterygoid plates are intact. Visualized portions of the skull base and auditory canals are intact. Sinuses: Paranasal sinuses are aerated, without fluid levels, mucosal thickening, or mucoceles. Mastoid air cells are aerated. Soft tissues: No edema, masses, or fluid collections. No enlarged lymph nodes. No soft tissue lacerations or debris. Vascular: Visualized vascular structures appear normal in the absence of contrast. Bony vascular foramina and canals are intact. IMPRESSION: No displaced fracture or air-fluid level. Dictated by: Sanket Solomon M.D. on 10/22/2024 at 9:53 Approved by: Sanket Solomon M.D. on 10/22/2024 at 9:53 Chest x-ray: Radiologist's Impression: [facility] [address] [place] [id number] XRay Report Signed Patient: Nael Lamas V MR#: [id number] : 1935 Acct:[id number] Age/Sex: 89 / M Date of Service: 10/22/24 Loc: ED Accession Number: [id number] Procedure: XR chest 1V Ordering Provider: Pedro Pablo Chun MD PROCEDURE: XR CHEST 1V INDICATIONS: Chest pain TECHNIQUE: One view of the chest was acquired. COMPARISON: [facility], CR, XR CHEST 1V, 10/05/2020, 13:14. [facility], CR, CHEST 2 VIEW, 05/28/2016, 13:19. FINDINGS: Surgical changes and devices: Left shoulder arthroplasty. Sternotomy. Lungs and pleura: Lungs are clear. No pleural effusions or pneumothorax. Elevated right hemidiaphragm, stable from 2020. Mediastinum: Mediastinal contours appear normal. Heart size is normal. Bones and chest wall: No suspicious bony lesions. Overlying soft tissues appear unremarkable. IMPRESSION: No acute cardiopulmonary abnormality is seen. Dictated by: Sanket Solomon M.D. on 10/22/2024 at 9:48 Approved by: Sanket Solomon M.D. on 10/22/2024 at 9:49 CT - cervical spine: Radiologist's Impression: [address] [address] [address] Scan Report Signed Patient: Nael Lamas V MR#: [id number] : 1935 Acct:[id number] Age/Sex: 89 / M Date of Service: 10/22/24 Loc: ED Accession Number: [id number] Procedure: CT facial bones wo con Ordering Provider: Pedro Pablo Chun MD PROCEDURE: CT FACIAL BONES WO CON INDICATIONS: Altered mental status, syncope TECHNIQUE: Noncontrast 2.5 mm thick axial images acquired from the mandible through the frontal sinuses, with coronal and sagittal reformatting. For radiation dose reduction, the following was used: automated exposure control, adjustment of mA and/or kV according to patient size. COMPARISON: [facility], CT, CT FACIAL BONES WO CON, 01/30/2024, 17:39. FINDINGS: Image quality: Excellent. Bones and teeth: Orbital archer are intact. Sinus archer show no fracture or deformity. Nasal bones and septum are intact. Visualized portions of the mandible demonstrate no fractures or subluxation. Zygomatic arches are intact. Pterygoid plates are intact. Visualized portions of the skull base and auditory canals are intact. Sinuses: Paranasal sinuses are aerated, without fluid levels, mucosal thickening, or mucoceles. Mastoid air cells are aerated. Soft tissues: No edema, masses, or fluid collections. No enlarged lymph nodes. No soft tissue lacerations or debris. Vascular: Visualized vascular structures appear normal in the absence of contrast. Bony vascular foramina and canals are intact. IMPRESSION: No displaced fracture or air-fluid level. Dictated by: Sanket Solomon M.D. on 10/22/2024 at 9:53 Approved by: Sanket Solomon M.D. on 10/22/2024 at 9:53 [facility] Narrative Medical decision making narrative: Patient brought here by and special events assistant, patient brought in as modified trauma due to blood thinners for atrial fibrillation. Patient has history of heart valve replacement as well. However while transferring patient wheelchair to his bed in the room. Patient had syncopal episode. Code blue was called as patient was pulseless. Patient was carried to his bed. Patient within 30 seconds regained consciousness and was awake and answering his name and date of . Blood sugar 170. Patient on monitor atrial fibrillation rate 80.. Patient is on Eliquis. Does not have a pacemaker. Patient sees Dr. Mejia, cardiology [facility]. does not know if the heart valve is metal Last well known 730 this morning. left at 7:30 a.m. this morning to place there pet into a care facility because they were leaving for vacation today. She returned at 7:45 a.m. this morning to find patient passed out in the bathroom. Had erythema on the face and nose. No blood on the ground. After history and exam, CBC CMP troponin EKG CT head CT angiogram head and neck chest x-ray [facility] Medical records reviewed: No recent visit for this complaint Differential considered: Includes but not limited to STEMI non-STEMI stroke TIA vasovagal syncope arrhythmia Lab Test results independently reviewed as above. Pertinent findings: WBC 7.6 hemoglobin 14.4 INR 1.6 sodium 139 potassium 4.0 BUN 27 creatinine 0.99 GFR greater than 60 glucose 182 total CK 88, troponin less than 0.012 Independently reviewed EKG atrial fibrillation rate 81 right bundle-branch block Imaging studies independently reviewed: CT head CT angio head and neck chest x-ray no acute finding Consultations: 9:32 a.m.. Spoke with patient's chief mechanical engineer, dr mejia, patient needs to be transferred for pacemaker. [facility] with Dr. Escobar. 9:42 a.m.. We spoke with [facility]. They have no bed. We are on a wait list. However given urgency we will look at other facilities. Updated patient and family. 10:20 a.m.. I spoke with Edita mcnulty, chief mechanical engineer, Dr. Roberts, who will accept patient through hospitalist, please start dopamine drip. 10:53 a.m.. I spoke with hospitalist, Dr. Olsen, who will accept patient. Patient is on no drips at this time but however no dopamine is hung and ready to go if needed. Re-evaluations: 9:27 a.m., while in CT scan patient Julio C down to 20, went asystole for 12 seconds. Brought immediately back to emergency department. Patient is awake alert and AFib with rate 82. Updated patient and . They will be likely transferred to [facility] for pacemaker. 10:30 a.m.., charge nurse, Conrado has spoken with family regarding stat flight and they do agree. Discussion: Appropriate for transfer higher level of care. Patient will need a pacemaker. Patient has been on seizure precautions and has pacer pads on. Patient did not require CPR or chest compressions or intubation. Patient recovered very quickly spontaneously. Diagnosis: Syncope Critical Care Time Critical Care Time Attestation: Critical Care Time 35 minutes: Critical care time is separate from other billable procedures. This critical care time includes consultation with family and other consulting doctors, review of records, and interpretation of data from labs, EKGs, imaging, etc. Discharge Plan Departure Patient Disposition: [facility] Clinical Impression: Syncope Qualifiers: Syncope type: unspecified Qualified Code(s): R55 - Syncope and collapse Atrial fibrillation Qualifiers: Atrial fibrillation type: unspecified Qualified Code(s): I48.91 - Unspecified atrial fibrillation Prescriptions: No Action (DME) Respironcis Dramstation CPAP Qty: 1 Dose Instruction: As directed Patient Comments: Pressure: 9-16 cmH2O DME: [facility] Rx Instructions: As directed trazodone 50 mg Tablet 50 mg PO BEDTIME donepezil 10 mg Tablet 5 mg PO BEDTIME simvastatin 40 mg Tablet 40 mg PO QPM metoprolol succinate 25 mg Tablet Extended Release 24 Hr 12.5 mg PO DAILY vitamin E 400 unit Capsule 400 unit PO DAILY fenofibrate nanocrystallized [Tricor] 145 mg Tablet 145 mg PO DAILY potassium gluconate 595 mg (99 mg) Tablet 99 mg PO DAILY multivitamin with folic acid 400 mcg Tablet 1 tab PO DAILY warfarin 4 mg tablet 4 mg PO DAILY Referrals: Jaelyn Montenegro PA-C [Primary Care Provider, Medical]
--- NOTE | 2024-10-22 09:17 | PC.NURSE ---
escorting patient from triage to room 2 I heard a noise, checked patient, patient had become unresponsive and sweaty, dr bertrand in room to help lift from wheelchair to bed, other staff members at bedside.
--- NOTE | 2024-10-22 09:22 | DI.RAD.S_ITS ---
PROCEDURE: XR CHEST 1V INDICATIONS: Chest pain TECHNIQUE: One view of the chest was acquired. COMPARISON: [facility], [place], XR CHEST 1V, 10/05/2020, 13:14. [facility], , CHEST 2 VIEW, 05/28/2016, 13:19. FINDINGS: Surgical changes and devices: Left shoulder arthroplasty. Sternotomy. Lungs and pleura: Lungs are clear. No pleural effusions or pneumothorax. Elevated right hemidiaphragm, stable from 2020. Mediastinum: Mediastinal contours appear normal. Heart size is normal. Bones and chest wall: No suspicious bony lesions. Overlying soft tissues appear unremarkable. IMPRESSION: No acute cardiopulmonary abnormality is seen. Dictated by: Sanket Solomon M.D. on 10/22/2024 at 9:48 Approved by: Sanket Solomon M.D. on 10/22/2024 at 9:49
[2024-10-22 09:23] LABS: Add Manual Diff / Slide Review NO; Basophils Absolute Auto 100 /uL (0-100); Basophils Percent Auto 1.2 % (0-2); Eosinophils Absolute Auto 100 /uL (0-450); Eosinophils Percent Auto 1.7 % (2-4); Hematocrit 42.9 % (41-53); Hemoglobin 14.4 g/dL (13.5-17.5); Lymphocytes Absolute Auto 2100 /uL (1100-4500); Lymphocytes Percent Auto 27.2 % (25-40); Mean Corpuscular HGB Conc 33.7 % (30-36); Mean Corpuscular Hemoglobin 30.6 PG (26-34); Mean Corpuscular Volume 90.7 fL (80-100); Monocytes Absolute Auto 700 /uL (0-900); Monocytes Percent Auto 8.7 % (3-14); Neutrophils Absolute Auto 4600 /uL (1500-7000); Neutrophils Percent Auto 61.2 % (50-75); Platelet Count 174 X10^3/uL (150-400); Red Blood Cell Count 4.72 X10^6/uL (4.5-5.9); Red Cell Distribution Width 14.3 % (11.6-14.8); White Blood Cell Count 7.6 X10^3/uL (4.5-11.0)
[2024-10-22 09:32] LABS: INR 1.6 (0.9-1.3); Prothrombin Time 18.1 SECONDS (9.4-12.5)
--- NOTE | 2024-10-22 09:33 | EKG_ITS ---
[address] [address] Test Date: 2024-10-22 Pat Name: Nael Lamas Department: Room: Gender: Male [employer]: LAUREN : [id number] Requested By: Order Number: [id number] Reading MD: Cash Lunsford Measurements Intervals Bernard Rate: 82 P: TN: QRS: 11 QRSD: 160 T: 19 QT: 442 QTc: 516 Interpretive Statements ATRIAL FIBRILLATION Right bundle branch block Electronically Signed On 10-26-2024 0:03:16 PDT by Cash Lunsford
[2024-10-22 09:34] LABS: PTT Partial Thromboplastin Tim 35 SECONDS (25.1-36.5)
[2024-10-22 09:37] LABS: Alanine Aminotransferase 18 IU/L (<50); Albumin 4.4 g/dL (3.5-5.0); Albumin Globulin Ratio 1.5 (1.0-2.8); Alkaline Phosphatase 61 U/L (38-126); Aspartate Aminotransferase 30 IU/L (17-59); BUN Creatinine Ratio 27.3 (6-22); Bilirubin Total 0.8 mg/dL (0.2-1.3); Blood Urea Nitrogen 27 mg/dL (9-20); Calcium 9.4 mg/dL (8.4-10.2); Carbon Dioxide 21 mmol/L (22-32); Chloride 106 mmol/L (98-107); Creatine Kinase 88 U/L (55-170); Estimated Glomerular Filt Rate > 60 mL/min (>60); Globulin 2.9 g/dL (1.7-4.1); Glucose 182 mg/dL (70-99); HEMOLYSIS < 15 (0-50); Sodium 139 mmol/L (137-145); Total Protein 7.3 g/dL (6.3-8.2)
[2024-10-22 09:48] LABS: Troponin I < 0.012 ng/mL (0.01-0.034)
--- NOTE | 2024-10-22 10:10 | PC.NURSE ---
BP trending down. BP 97/58. Dr Chun notified. 500mL fluids bolus hung.
[2024-10-22] MEDS: SODIUM CHLORIDE 0.9% 500 ML 1000 ML IV (10:18)
--- NOTE | 2024-10-22 10:41 | PC.NURSE ---
Pt remains awake and alert. Placed on bed [place] per pt request.
--- NOTE | 2024-10-22 11:19 | PC.NURSE ---
Pt continues to remain awake and alert. Denies pain/nausea at this time. Explained to pt/family that he will be transferred via [facility] to .
== END 2024-10-22 11:52 | disposition short-term general hospital (02) ==
PROVIDERS: Emergency Provider Emergency Medicine; PCP Physician Assistant
DX: R55 Syncope and collapse (principal); I48.91 Unspecified atrial fibrillation; S09.90XA Unspecified injury of head, initial encounter; R07.9 Chest pain, unspecified; W19.XXXA Unspecified fall, initial encounter; Z79.01 Long term (current) use of anticoagulants; Z95.2 Presence of prosthetic heart valve
CPT/HCPCS: 36415; 70450; 70486; 70496; 70498; 71045; 72125; 80053; 82550; 84484; 85025; 85610; 85730; 92950; 93005; 96360; 99284; 99285; 99291; Q9967